=== PATIENT | male | born 1950 | race Caucasian/White ===

== ENCOUNTER 2021-10-17 07:06 | Inpatient (IN) | payer MEDICARE ==
[2021-10-17 07:42] LABS: Basophils # (A) 0.1 k/uL (0-0.2); Basophils % (A) 1 %; Eosinophils # (A) 0.3 k/uL (0-0.7); Eosinophils % (A) 5 %; HGB 15.9 gm/dL (13.0-17.5); Lymphocytes % (A) 34 %; MCHC 33.9 g/dL (31.0-37.0); MCV 94.6 fL (80.0-100.0); Mean Platelet Volume 6.9; Monocytes # (A) 0.3 k/uL (0-1.0); Monocytes % (A) 6 %; Neutrophils % (A) 52 %; Platelet Count 181 k/uL (150-450); RBC 4.97 m/uL (4.30-5.90); RDW 15.1 % (11.5-15.5); WBC 5.8 k/uL (3.8-10.6)
[2021-10-17 07:48] LABS: ALT 17 U/L (4-49); AST 26 U/L (17-59); African American GFR (CKD) >90 (>60 ml/min/1.73 sqM); Alkaline Phosphatase 104 U/L (38-126); Anion Gap 6 mmol/L; Blood Urea Nitrogen 18 mg/dL (9-20); Calcium 9.1 mg/dL (8.4-10.2); Carbon Dioxide 26 mmol/L (22-30); Chloride 108 mmol/L (98-107); Glucose 153 mg/dL (74-99); Magnesium 1.9 mg/dL (1.6-2.3); Non-African American GFR(CKD) 90 (>60 ml/min/1.73 sqM); Potassium 4.2 mmol/L (3.5-5.1); Sodium 140 mmol/L (137-145); Total Bilirubin 0.9 mg/dL (0.2-1.3); Total Protein 6.9 g/dL (6.3-8.2)
[2021-10-17 07:54] LABS: INR 0.9 (<1.2); Prothrombin Time 9.9 sec (9.0-12.0)
[2021-10-17 08:00] LABS: Partial Thromboplastin Time 20.4 sec (22.0-30.0)
--- NOTE | 2021-10-17 08:10 | XR ---
EXAMINATION TYPE: XR chest 2V DATE OF EXAM: 10/17/2021 COMPARISON: NONE HISTORY: 71 years Male. STUDY INDICATION GIVEN: Chest Pain . TECHNIQUE: Frontal and lateral chest radiographs. IMPRESSION: No focal airspace disease, pneumothorax or pleural effusion. The cardiomediastinal silhouette is normal in appearance. No acute osseous abnormalities seen. Degenerative changes are seen in the spine.
--- NOTE | 2021-10-17 08:14 | ED ---
Chest Pain HPI - General Chief Complaint: Chest Pain Stated Complaint: Chest Pain Time Seen by Provider: 10/17/21 07:08 Source: patient, EMS, RN notes reviewed Mode of arrival: EMS Limitations: no limitations - History of Present Illness Initial Comments: 71-year-old male presents emergency Department with chief complaint of chest pain. Patient states it woke him up around 5 AM he states he has a chest pain radiated to his left arm. Patient has no prior cardiac history denies any history of hypertension hyperlipidemia diabetes. Patient states she's never exhibited pain like this in the past. Does not feel short of breath. Patient states she still is dull achy pain, pressure on the left side. Patient did receive aspirin prior arrival. - Related Data Allergies Allergy/AdvReac Type Severity Reaction Status Date / Time No Known Allergies Allergy Verified 10/17/21 07:16 Review of Systems ROS Statement: Those systems with pertinent positive or pertinent negative responses have been documented in the HPI. ROS Other: All systems not noted in ROS Statement are negative. EKG Findings - EKG Comments: EKG Findings:: EKG performed at 17:14 sinus rhythm with a rate of 68 FL 204 QRS 97 QT / QTC 388/404 Past Medical History Past Medical History: No Reported History History of Any Multi-Drug Resistant Organisms: ESBL Date of last positivie culture/infection: 12/09/16 MDRO Source:: URINE E.COLI Past Surgical History: No Surgical Hx Reported Smoking Status: Current every day smoker Past Alcohol Use History: None Reported Past Drug Use History: Marijuana General Exam General appearance: alert, in no apparent distress Head exam: Present: atraumatic, normocephalic, normal inspection Eye exam: Present: normal appearance, PERRL, EOMI. Absent: scleral icterus, conjunctival injection, periorbital swelling ENT exam: Present: normal exam, mucous membranes moist Neck exam: Present: normal inspection. Absent: tenderness, meningismus, lymphadenopathy Respiratory exam: Present: normal lung sounds bilaterally. Absent: respiratory distress, wheezes, rales, rhonchi, stridor, chest wall tenderness Cardiovascular Exam: Present: regular rate, normal rhythm, normal heart sounds. Absent: systolic murmur, diastolic murmur, rubs, gallop, clicks Neurological exam: Present: alert, oriented X3, CN II-XII intact Course Vital Signs 02/19/22 07:07 Temperature 97.5 F L Pulse Rate 63 Respiratory 18 Rate Blood Pressure 130/86 O2 Sat by Pulse 97 Oximetry Chest Pain MDM - MDM 71-year-old male presented for chest pain. Patient symptoms started 2 large prior arrival. Patient has a troponin of 0.026 patient does not have any significant risk factors though patient has concerning ACS symptoms will be admitted for repeat troponin, cardiology evaluation. Patient was started on heparin. Disposition Clinical Impression: Chest pain Disposition: ADMITTED IP TO THIS HOSP Condition: Fair Referrals: Marty Pal DO [Primary Care Provider] - 1-2 days
[2021-10-17] MEDS ORDERED: NITROGLYCERIN SL TABS 0.4 MG TAB SUBLINGUAL PRN (08:21)
[2021-10-17] MEDS ORDERED: HEPARIN SODIUM 1,000 UN/ML (10ML VL) IV ONE (08:21)
[2021-10-17] MEDS: HEPARIN SOD,PORK IN 0.45% NACL 25,000 UNIT in 0.45% NACL 1 250ML.BAG IV SCH (08:36)
[2021-10-17] MEDS: NITROGLYCERIN OINT 1 INCH/GM PACKET TOPICAL SCH ×3 (12:50→23:12)
[2021-10-17] MEDS: NICOTINE 21MG/24HR PATCH TRANSDERM SCH (12:50)
--- NOTE | 2021-10-17 12:55 | P.HPIM ---
History of Present Illness This is a pleasant 71 years old male with no significant past medical history. Presents because of chest pain that started this morning and woke him up from sleep. The pain is on the left side, radiating to the left arm associated with sweating and numbness about 10/10 in severity, currently improved down to 1/10 in severity. Associated with some nausea and sweating but no dyspnea or coughing. No vomiting or diarrhea. No dysuria. No headaches, dizziness weakness or numbness He smokes about three quarters of a pack per day and he was counseled to quit and he agrees and wants nicotine patch. No alcohol or illicit drugs. hemodynamically stable Labs including CBC, BMP, liver enzymes are unremarkable. First troponin was -0.02 ,the second one increased to 1.4. Joan virus not detected EKG showing sinus rhythm at [address]-T changes and QTC 404: Chest x-ray: No acute process. In the emergency room patient was started on aspirin and heparin drip Review of Systems CONSTITUTIONAL: No fever, no malaise, no fatigue. HEENT: No recent visual problems or hearing problems. Denied any sore throat. CARDIOVASCULAR: No orthopnea, PND, no palpitations, no syncope. PULMONARY: No shortness of breath, no cough, no hemoptysis. GASTROINTESTINAL: No diarrhea, no nausea, no vomiting, no abdominal pain. Normoactive bowel sounds. NEUROLOGICAL: No headaches, no weakness, no numbness. HEMATOLOGICAL: Denies any bleeding or petechiae. GENITOURINARY: Denies any burning micturition, frequency, or urgency. MUSCULOSKELETAL/RHEUMATOLOGICAL: Denies any joint pain, swelling, or any muscle pain. ENDOCRINE: Denies any polyuria or polydipsia. Past Medical History Past Medical History: No Reported History History of Any Multi-Drug Resistant Organisms: ESBL Date of last positivie culture/infection: 12/09/16 MDRO Source:: URINE E.COLI Past Surgical History: Appendectomy Past Anesthesia/Blood Transfusion Reactions: No Reported Reaction Past Psychological History: No Psychological Hx Reported Smoking Status: Former smoker Past Alcohol Use History: None Reported Past Drug Use History: Marijuana - Past Family History Mother Family Medical History: Congestive Heart Failure (CHF), Diabetes Mellitus Medications and Allergies Home Medications Medication Instructions Recorded Confirmed Type Ibuprofen [Motrin Ib] 400 mg PO Q8H PRN 10/17/21 10/17/21 History Allergies Allergy/AdvReac Type Severity Reaction Status Date / Time No Known Allergies Allergy Verified 10/17/21 08:38 Physical Exam Vitals: Vital Signs Temp Pulse Pulse Resp BP BP Pulse Ox 10/17/21 11:00 98 10/17/21 10:06 97.8 F 63 16 101/64 95 10/17/21 08:38 62 16 100/72 95 10/17/21 07:07 97.5 F L 63 18 130/86 97 Intake and Output 10/16/21 10/17/21 10/17/21 22:59 06:59 14:59 Other: Weight 79.379 kg GENERAL: The patient is alert and oriented x3, not in any acute distress. Well developed, well nourished. HEENT: Pupils are round and equally reacting to light. EOMI. No scleral icterus. No conjunctival pallor. Normocephalic, atraumatic. No pharyngeal erythema. No thyromegaly. CARDIOVASCULAR: S1 and S2 present. No murmurs, rubs, or gallops. PULMONARY: Chest is clear to auscultation, no wheezing or crackles. ABDOMEN: Soft, nontender, nondistended, normoactive bowel sounds. No palpable organomegaly. MUSCULOSKELETAL: No joint swelling or deformity. EXTREMITIES: No cyanosis, clubbing, or pedal edema. NEUROLOGICAL: Gross neurological examination did not reveal any focal deficits. SKIN: No rashes. No petechiae Results CBC & Chem 7: 10/17/21 07:30 10/17/21 07:30 Labs: Abnormal Lab Results - Last 24 Hours (Table) 10/17/21 10/17/21 10/17/21 Range/Units 07:30 07:30 11:13 APTT 20.4 L (22.0-30.0) sec Chloride 108 H (98-107) mmol/L Glucose 153 H (74-99) mg/dL Troponin I 1.440 H* (0.000-0.034) ng/mL Thrombosis Risk Factor Assmnt - Choose All That Apply Any of the Below Risk Factors Present?: No Other Risk Factors: Yes Each Risk Factor Represents 2 Points: Age 61-74 years Thrombosis Risk Factor Assessment Total Risk Factor Score: 2 Thrombosis Risk Factor Assessment Level: Low Risk Assessment and Plan Assessment: None STEMI Nicotine dependence Plan: This is a pleasant 71 years old male who presents with non-STEMI Continue with heparin drip Continue with aspirin Check echocardiogram Nicotine patch Cardiology team are informed and aware of the patient and abnormal labs Labs and medication were reviewed.. Continue same treatment. Continue with symptomatic treatment. Resume home medication. Monitor lytes and vitals. DVT and GI prophylaxis. Further recommendations depends on the clinical course of the patient DVT prophylaxis: heparin GI Prophylaxis: Pepcid Prognosis is guarded
[2021-10-17] MEDS ORDERED: ALPRAZolam 0.25 MG TAB PO PRN (14:17)
[2021-10-17] MEDS ORDERED: ALPRAZolam 0.5 MG TAB PO PRN (14:17)
--- NOTE | 2021-10-17 15:43 | P.CRDCN ---
History of Present Illness Consult date: 10/17/21 History of present illness: This is a 71-year-old gentleman with history of heavy smoking, on no known medication, woke up this morning with complaints of severe chest discomfort with some radiation to the left arm. This lasted about an hour and then gradually eased up. Patient came to the emergency room. His EKG did not reveal any acute changes. Patient was treated sublingual nitroglycerin with improvement of symptoms. Patient has been on heparin and Nitropaste. Hasn't had any recurrence of chest pain. His troponin is elevated suggestive of unstable angina/non-STEMI. No history of previous ischemic heart disease. No hypertension or diabetes. Mother of congestive heart failure and her 70s. His brother suddenly at a 60. Patient is advised to have cardiac catheterization which is being scheduled for tomorrow morning. Further examination depend upon the findings on the cardiac catheterization Review of Systems As per the chart Past Medical History Past Medical History: No Reported History History of Any Multi-Drug Resistant Organisms: ESBL Date of last positivie culture/infection: 12/09/16 MDRO Source:: URINE E.COLI Past Surgical History: Appendectomy Past Anesthesia/Blood Transfusion Reactions: No Reported Reaction Past Psychological History: No Psychological Hx Reported Smoking Status: Former smoker Past Alcohol Use History: None Reported Past Drug Use History: Marijuana - Past Family History Mother Family Medical History: Congestive Heart Failure (CHF), Diabetes Mellitus Medications and Allergies Home Medications Medication Instructions Recorded Confirmed Type Ibuprofen [Motrin Ib] 400 mg PO Q8H PRN 10/17/21 10/17/21 History Allergies Allergy/AdvReac Type Severity Reaction Status Date / Time No Known Allergies Allergy Verified 10/17/21 08:38 Physical Exam Vitals: Vital Signs Temp Pulse Pulse Resp BP BP Pulse Ox 10/17/21 13:46 97.8 F 65 16 109/70 94 L 10/17/21 11:00 98 10/17/21 10:06 97.8 F 63 16 101/64 95 10/17/21 08:38 62 16 100/72 95 10/17/21 07:07 97.5 F L 63 18 130/86 97 Intake and Output 10/17/21 10/17/21 10/17/21 06:59 14:59 22:59 Other: # Voids 1 # Bowel Movements 0 Weight 79.379 kg GENERAL EXAM: Patient is alert and oriented and doesn't appear to be in any acute distress HEENT: Normocephalic. Normal reaction of pupils, equal size, normal range of extraocular motion. No erythema or exudates in the throat. NECK: No masses, no nuchal rigidity. CHEST: No chest wall deformity. LUNGS: Equal air entry with no crackles or wheeze. HEART: S1 and S2 normal with no audible mumurs or gallops. Regular rhythm, fe morals equal on both sides.. ABDOMEN: No hepatosplenomegaly, normal bowel sounds, no guarding or rigidity. SKIN: No rashes CENTRAL NERVOUS SYSTEM: No focal deficits. EXTREMITIES: No cyanosis, clubbing or edema. Results 10/17/21 07:30 10/17/21 07:30 Cardiac Enzymes 10/17/21 10/17/21 10/17/21 Range/Units 07:30 07:30 11:13 AST 26 (17-59) U/L Troponin I 0.026 1.440 H* (0.000-0.034) ng/mL 10/17/21 Range/Units 13:49 AST (17-59) U/L Troponin I 2.450 H* (0.000-0.034) ng/mL Coagulation 10/17/21 10/17/21 Range/Units 07:30 13:49 PT 9.9 (9.0-12.0) sec APTT 20.4 L 46.0 H (22.0-30.0) sec CBC 10/17/21 Range/Units 07:30 WBC 5.8 (3.8-10.6) k/uL RBC 4.97 (4.30-5.90) m/uL Hgb 15.9 (13.0-17.5) gm/dL Hct 47.0 (39.0-53.0) % Plt Count 181 (150-450) k/uL Comprehensive Metabolic Panel 10/17/21 Range/Units 07:30 Sodium 140 (137-145) mmol/L Potassium 4.2 (3.5-5.1) mmol/L Chloride 108 H (98-107) mmol/L Carbon Dioxide 26 (22-30) mmol/L BUN 18 (9-20) mg/dL Creatinine 0.82 (0.66-1.25) mg/dL Glucose 153 H (74-99) mg/dL Calcium 9.1 (8.4-10.2) mg/dL AST 26 (17-59) U/L ALT 17 (4-49) U/L Alkaline Phosphatase 104 (38-126) U/L Total Protein 6.9 (6.3-8.2) g/dL Albumin 4.0 (3.5-5.0) g/dL Current Medications Generic Name Dose Route Start Last Admin Trade Name Freq PRN Reason Stop Dose Admin Alprazolam 0.25 mg 10/17/21 14:17 Alprazolam 0.25 Mg Tab PO Q6HR PRN Mild Anxiety Alprazolam 0.5 mg 10/17/21 14:17 Alprazolam 0.5 Mg Tab PO Q6HR PRN Moderate Anxiety Aspirin 325 mg 10/18/21 09:00 Aspirin 325 Mg Tab PO DAILY [place] Aspirin 325 mg 10/18/21 06:00 Aspirin 325 Mg Tab PO 10/18/21 06:01 ONCE ONE Atorvastatin Calcium 80 mg 10/18/21 06:00 Atorvastatin 80 Mg Tab PO 10/18/21 06:01 ONCE ONE Famotidine 20 mg 10/17/21 21:00 Famotidine 20 Mg/2 Ml Vial IV Q12HR [place] Heparin Sodium/Sodium Chloride 250 mls @ 9.525 mls/hr 10/17/21 08:30 10/17/21 08:36 25,000 unit/ Sodium Chloride IV 12 units/kg/hr .Q24H [place] 9.525 mls/hr Administration Protocol 12 UNITS/KG/HR Heparin Sodium (Porcine) 10, 1,001 mls @ 999 mls/hr 10/18/21 07:00 000 unit/ Sodium Chloride IRRIGATION 10/18/21 23:00 ONCE PRN INTRA-OP Heparin Sodium (Porcine) 2,500 250.5 mls @ 250 mls/hr 10/18/21 07:00 unit/ Sodium Chloride IRRIGATION 10/18/21 23:00 ONCE PRN INTRA-OP Nicotine 1 patch 10/17/21 12:15 10/17/21 12:50 Nicotine 21mg/24hr Patch TRANSDERM 1 patch DAILY [place] Administration Nitroglycerin 1 inch 10/17/21 12:30 10/17/21 12:50 Nitroglycerin Oint 1 Inch/Gm Packet TOPICAL 1 inch Q6HR [place] Administration Intake and Output 02/19/22 02/19/22 02/19/22 06:59 14:59 22:59 Other: # Voids 1 # Bowel Movements 0 Weight 79.379 kg Patient Weight 10/18/21 06:59 Weight 79.379 kg 10/17/21 07:30 10/17/21 07:30 EKG Interpretations (text) Sinus rhythm Assessment and Plan (1) Non-STEMI (non-ST elevated myocardial infarction) Current Visit: Yes Status: Acute Code(s): I21.4 - NON-ST ELEVATION (NSTEMI) MYOCARDIAL INFARCTION SNOMED Code(s): 75279741 (2) Smoking Current Visit: Yes Status: Acute Code(s): F17.200 - NICOTINE DEPENDENCE, UNSPECIFIED, UNCOMPLICATED SNOMED Code(s): 17705127 (3) Family history of ischemic heart disease Current Visit: Yes Status: Acute Code(s): Z82.49 - FAMILY HX OF ISCHEM HEART DIS AND OTH DIS OF THE CIRC SYS SNOMED Code(s): 878072323 Plan: Continue with beta cuco, nitrates lipid-lowering agents and aspirin and Plavix. Cardiac cath in the morning. Echocardiogram
--- NOTE | 2021-10-17 16:40 | ECHOF ---
Referral Reason:chest pain MEASUREMENTS -------- HEIGHT: 182.9 cm WEIGHT: 79.4 kg BP: RVIDd: 3.5 cm (< 3.3) IVSd: 1.1 cm (0.6 - 1.1) LVIDd: 4.6 cm (3.9 - 5.3) LVPWd: 1.1 cm (0.6 - 1.1) IVSs: 1.3 cm LVIDs: 3.0 cm LVPWs: 1.5 cm LA Diam: 3.5 cm (2.7 - 3.8) Ao Diam: 4.0 cm (2.0 - 3.7) MV E Garrick: 0.46 m/s MV DecT: 171 ms MV A Garrick: 0.58 m/s MV E/A Ratio: 0.79 RAP: 5.00 mmHg RVSP: 11.77 mmHg FINDINGS -------- Sinus rhythm. This was a techncally difficult study with suboptimal views, , Definity utilized for enhancement of i mages. The left ventricular size is normal. There is moderate global hypokinesis of LV . Overall left ve ntricular systolic function is moderate-severely impaired with, an EF between 30 - 35 %. Mid trent septal LV wall motion is hypokinetic. Apical anterior LV wall motion is hypokinetic. Apical lat eral LV wall motion is hypokinetic. Apical inferior LV wall motion is hypokinetic. Apical septu m LV wall motion is hypokinetic. The right ventricle is normal in size. Normal LA size by volume 22+/-6 ml/m2. The right atrial size is normal. Lumason used The aortic valve was not well visualized. There is mild aortic valve sclerosis. There is no evide nce of aortic regurgitation. Mild mitral regurgitation is present. Mild tricuspid regurgitation present. Right ventricular systolic pressure is normal at < 35 mmHg. The pulmonic valve was not well visualized. Aortic Root is dilated and measures 4.0cm. Echo free space indicative of a pericardial fat pad. CONCLUSIONS -------- 1. This was a techncally difficult study with suboptimal views, , Definity utilized for enhancement o f images. 2. The left ventricular size is normal. 3. There is moderate global hypokinesis of LV . 4. Overall left ventricular systolic function is moderate-severely impaired with, an EF between 30 - 35 %. 5. Apical anterior LV wall motion is hypokinetic. 6. Apical lateral LV wall motion is hypokinetic. 7. Apical inferior LV wall motion is hypokinetic. 8. Apical septum LV wall motion is hypokinetic. 9. The right ventricle is normal in size. 10. Normal LA size by volume 22+/-6 ml/m2. 11. The right atrial size is normal. 12. Lumason used 13. The aortic valve was not well visualized. 14. There is mild aortic valve sclerosis. 15. Mild mitral regurgitation is present. 16. Mild tricuspid regurgitation present. 17. The pulmonic valve was not well visualized. 18. Echo free space indicative of a pericardial fat pad. BOX CAR LOADER: Devorah Jimenez RDCS
[2021-10-17] MEDS: CLOPIDOGREL 75 MG TAB PO SCH (17:27)
[2021-10-17] MEDS: FAMOTIDINE 20 MG/2 ML VIAL IV SCH (19:52)
[2021-10-17] MEDS: METOPROLOL TARTRATE 12.5 MG TAB PO SCH (19:52)
[2021-10-17] MEDS: ACETAMINOPHEN TAB 325 MG TAB PO PRN (19:52)
[2021-10-18 05:46] LABS: Glucose,Whole Blood 109 mg/dL (75-99)
[2021-10-18] MEDS ORDERED: ATORVASTATIN 80 MG TAB PO ONE (06:00)
[2021-10-18] MEDS ORDERED: ASPIRIN 325 MG TAB PO ONE (06:00)
[2021-10-18] MEDS: NITROGLYCERIN OINT 1 INCH/GM PACKET TOPICAL SCH ×4 (06:09→23:38)
[2021-10-18] MEDS: METOPROLOL TARTRATE 12.5 MG TAB PO SCH ×2 (06:13→21:04)
[2021-10-18] MEDS: FAMOTIDINE 20 MG/2 ML VIAL IV SCH ×2 (06:14→21:04)
[2021-10-18] MEDS: CLOPIDOGREL 75 MG TAB PO SCH (06:14)
[2021-10-18] MEDS ORDERED: HEPARIN SODIUM,PORCINE 2,500 UNIT in SODIUM CHLORIDE 0.9% 250 ML IRRIGATION PRN (07:00)
[2021-10-18] MEDS ORDERED: HEPARIN SODIUM,PORCINE 10,000 UNIT in SODIUM CHLORIDE 0.9% 1,000 ML IRRIGATION PRN (07:00)
[2021-10-18] MEDS: NICOTINE 21MG/24HR PATCH TRANSDERM SCH (08:13)
[2021-10-18] MEDS ORDERED: ASPIRIN 325 MG TAB PO SCH (09:00)
[2021-10-18 09:16] LABS: Mean Platelet Volume 6.6; Platelet Count 156 k/uL (150-450)
[2021-10-18] MEDS ORDERED: IV FLUID CONTINUATION 350 ML IV ONE (09:30)
[2021-10-18] MEDS ORDERED: fentaNYL (PF) 50 MCG/ML 2 ML AMP ONE (09:31)
[2021-10-18] MEDS ORDERED: LIDOCAINE 1% INJ 10MG/ML (20 ML MDV) ONE (09:31)
[2021-10-18] MEDS ORDERED: VERAPAMIL 2.5 MG/ML 2 ML AMP ONE (09:32)
[2021-10-18] MEDS ORDERED: fentaNYL (PF) 50 MCG/ML 2 ML AMP IVP ONE (09:44)
[2021-10-18] MEDS ORDERED: MIDAZOLAM 2 MG/2 ML VIAL IVP ONE (09:44)
[2021-10-18] MEDS ORDERED: LIDOCAINE 1% INJ 10MG/ML (20 ML MDV) SQ ONE (09:48)
[2021-10-18] MEDS ORDERED: VERAPAMIL SYRINGE (5 MG/10 ML) INTRAARTER ONE (09:50)
[2021-10-18] MEDS ORDERED: HEPARIN SODIUM 1,000 UN/ML (10ML VL) ONE (09:52)
[2021-10-18] MEDS ORDERED: HEPARIN SODIUM 1,000 UN/ML (10ML VL) IVP ONE (09:54)
[2021-10-18] MEDS ORDERED: IOPAMIDOL-370 125ML BTL INJ ONE (10:07)
[2021-10-18] MEDS ORDERED: RX INFO: IV CONTRAST WAS GIVEN 1 EACH MISC MISCELLANE PRN (10:20)
[2021-10-18 11:05] LABS: Chol/HDL Ratio 4.63 Ratio
--- NOTE | 2021-10-18 11:29 | P.PN ---
Subjective This is a pleasant 71 years old male with no significant past medical history. Presents because of chest pain that started this morning and woke him up from sleep. The pain is on the left side, radiating to the left arm associated with sweating and numbness about 10/10 in severity, currently improved down to 1/10 in severity. Associated with some nausea and sweating but no dyspnea or coughing. No vomiting or diarrhea. No dysuria. No headaches, dizziness weakness or numbness He smokes about three quarters of a pack per day and he was counseled to quit and he agrees and wants nicotine patch. No alcohol or illicit drugs. hemodynamically stable Labs including CBC, BMP, liver enzymes are unremarkable. First troponin was -0.02 ,the second one increased to 1.4. Joan virus not detected EKG showing sinus rhythm at [address]-T changes and QTC 404: Chest x-ray: No acute process. In the emergency room patient was started on aspirin and heparin drip 10/18/2021 Patient sitting in bed with no chest pain, no other complaints, family at bedside Distal on heparin drip He Is a schedule for cardiac cath today echocardiogram showing ejection fraction of 30-35% with hypokinesia Objective - Vital Signs Vital signs: Vital Signs Temp 97.9 F 10/18/21 03:00 Pulse 53 L 10/18/21 03:00 Resp 18 10/18/21 03:00 BP 108/69 10/18/21 03:00 Pulse Ox 95 10/18/21 03:00 Intake & Output 10/17/21 10/18/21 10/18/21 18:59 06:59 18:59 Intake Total 240 150 300 Balance 240 150 300 Weight 79.379 kg Intake: IV 300 Oral 240 150 0 Other: Voiding Method Toilet # Voids 1 1 0 # Bowel Movements 0 0 - Exam GENERAL: The patient is alert and oriented x3, not in any acute distress. Well developed, well nourished. HEENT: Pupils are round and equally reacting to light. EOMI. No scleral icterus. No conjunctival pallor. Normocephalic, atraumatic. No pharyngeal erythema. No thyromegaly. CARDIOVASCULAR: S1 and S2 present. No murmurs, rubs, or gallops. PULMONARY: Chest is clear to auscultation, no wheezing or crackles. ABDOMEN: Soft, nontender, nondistended, normoactive bowel sounds. No palpable organomegaly. MUSCULOSKELETAL: No joint swelling or deformity. EXTREMITIES: No cyanosis, clubbing, or pedal edema. NEUROLOGICAL: Gross neurological examination did not reveal any focal deficits. SKIN: No rashes. no petechiae. - Labs CBC & Chem 7: 10/18/21 08:34 10/17/21 07:30 Labs: Abnormal Lab Results - Last 24 Hours (Table) 10/17/21 10/17/21 10/17/21 Range/Units 11:13 13:49 13:49 APTT 46.0 H (22.0-30.0) sec POC Glucose (mg/dL) (75-99) mg/dL Troponin I 1.440 H* 2.450 H* (0.000-0.034) ng/mL HDL Cholesterol (40.00-60.00) mg/dL 10/18/21 10/18/21 10/18/21 Range/Units 05:26 08:34 08:34 APTT 37.1 H (22.0-30.0) sec POC Glucose (mg/dL) 109 H (75-99) mg/dL Troponin I (0.000-0.034) ng/mL HDL Cholesterol 37.60 L (40.00-60.00) mg/dL Assessment and Plan Assessment: None STEMI Nicotine dependence Cardiomyopathy with ejection fraction 30-35% Plan: This is a pleasant 71 years old male who presents with non-STEMI Continue with heparin drip Continue with aspirin Follow-up cardiac cath Nicotine patch Cardiology team Labs and medication were reviewed.. Continue same treatment. Continue with symptomatic treatment. Resume home medication. Monitor lytes and vitals. DVT and GI prophylaxis. Further recommendations depends on the clinical course of the patient DVT prophylaxis: heparin GI Prophylaxis: Pepcid Prognosis is guarded
--- NOTE | 2021-10-18 13:14 | US ---
EXAMINATION TYPE: US carotid duplex BILAT DATE OF EXAM: 10/18/2021 COMPARISON: NONE CLINICAL HISTORY: 71-year-old male preop cardiac surgery. TECHNIQUE: Carotid duplex ultrasound examination. Indirect Doppler criteria was utilized. FINDINGS: EXAM MEASUREMENTS: RIGHT: Peak Systolic Velocity (PSV) cm/sec ----- Right CCA: 73.1 ----- Right ICA: 72.8 ----- Right ECA: 82.6 ICA/CCA ratio: 1.0 RIGHT: End Diastole cm/sec ----- Right CCA: 22.0 ----- Right ICA: 32.9 ----- Right ECA: 20.2 LEFT: Peak Systolic Velocity (PSV) cm/sec ----- Left CCA: 80.4 ----- Left ICA: 72.8 ----- Left ECA: 65.3 ICA/CCA ratio: 0.91 LEFT: End Diastole cm/sec ----- Left CCA: 28.8 ----- Left ICA: 31.9 ----- Left ECA: 18.3 VERTEBRALS (direction of flow): Right Vertebral: Antegrade Left Vertebral: Antegrade Rhythm: Normal Pharmaceutical Sales Specialist notes: Bilateral bulb plaque No elevated velocities IMPRESSION: Mild atherosclerotic change at the bifurcations. No hemodynamically significant internal carotid susanna ry stenosis on either side. Criteria for Assigning % of Stenosis / Diameter reduction (Estimation based on the indirect measurements of the internal carotid artery velocities (ICA PSV). 1. Normal (no stenosis)=ICA PSV < 125 cm/s: ratio < 2.0: ICA EDV<40 cm/s. 2. Less than 50% stenosis=ICA PSV < 125 cm/s: ratio < 2.0: ICA EDV<40 cm/s. 3. 50 to 69% stenosis=ICA PSV of 125 to 230 cm/s: ration 2.0 ? 4.0: ICA EDV 40-100 cm/s. 4. Greater than 70% stenosis to near occlusion= ICA PSV > 230 cm/s: ratio > 4.0: ICA EDV > 100 cm/s. 5. Near occlusion= ICA PSV velocities may be low or undetectable: variable ratio and ICA EDV. 6. Total occlusion=unable to detect flow.
--- NOTE | 2021-10-18 15:45 | P.CARDCATH ---
Date of Procedure: 10/18/21 Preoperative Diagnosis: Non-STEMI Postoperative Diagnosis: Triple-vessel disease Procedure(s) Performed: Left heart catheterization without left ventriculography Description of Procedure: HISTORY: This is a 71-year-old gentleman with history of smoking who was admitted to the hospital with complaints of prolonged chest pain, abnormal troponin and EKGs suggestive of non-STEMI. Patient is advised to have cardiac catheterization for definitive diagnosis CONSENT:I have discussed the risks, benefits and alternative therapies for the above-mentioned procedure and for both sedation/analgesia as well as necessary blood product administration, if indicated, as they pertain to this patient. The patient has indicated understanding and acceptance of the risks and procedures discussed. PROCEDURE: Patient was brought to the lab in a fasting state. Patient was given some IV sedation. The right groin is infiltrated with lidocaine and right femoral artery was entered using Seldinger technique. A 6-Serbian catheter was left in place and selective coronary arteriography and left ventriculography was performed. Patient tolerated the procedure well. Femoral angiogram was performed and Angio-Seal was applied for hemostasis. No immediate complications were noted and patient was transferred to [facility] in a stable condition Conscious Sedation: Versed 1 mg Fentanyl 50 g Duration. 14minutes HEMODYNAMICS: The aortic pressure is about 110/70. Left ventricular end- diastolic pressure is about 15. No gradient across the aortic valve SELECTIVE CORONARY ARTERIOGRAPHY: LEFT MAIN: Short and free of any significant focal occlusive disease THE LEFT ANTERIOR DESCENDING CORONARY ARTERY: This is a fair caliber vessel with diffuse disease involving the ostium and proximal segment with 99% stenosis proximal to the septal branch and diagonal branch. Following the lesion. There appears to be aneurysmal dilatation. There is also a diagonal branch arising from this area which seemed to be totally occluded and filling retrograde THE LEFT CIRCUMFLEX AND IS CORONARY ARTERY:. This is a good caliber vessel giving rise good-sized OM branch. The distal circumflex has about 70% lesion. Beyond that the vessel is limited distribution with small branches THE RIGHT CORONARY ARTERY:. This is a fair caliber vessel with significant disease proximally with a healed ruptured plaque. Seemed to be totally occluded in the midportion. The distal RCA is feeling by ipsilateral and contralateral collaterals and appears to be moderate in caliber. LEFT VENTRICULOGRAPHY: Not performed FINAL IMPRESSION: Severe triple-vessel disease with subtotal 99% stenosis of the LAD in the proximal portion with disease extending to the ostium and followed by an aneurysm formation. There is total occlusion of the first diagonal. The circumflex has about 70% lesion distally. The RCA has critical lesion proximally and totally occluded in midportion. The distal RCA is filled by collateral flow PLAN:. Films are reviewed by Dr. Menendez. Given the nature of the disease, it is felt that bypass surgery is the best option. If bypass surgery is felt to be not an option by cardiac surgeons, Dr. Menendez May consider intervention PROGNOSIS: Continue maximal medical therapy. Surgical consultation
[2021-10-18] MEDS: SODIUM CHLORIDE 0.9% 1,000 ML IV SCH ×2 (18:28→23:37)
[2021-10-18] MEDS: HEPARIN SOD,PORK IN 0.45% NACL 25,000 UNIT in 0.45% NACL 1 250ML.BAG IV SCH ×2 (18:33→20:48)
[2021-10-18] MEDS: HEPARIN SODIUM 1,000 UN/ML (10ML VL) IV PRN (18:33)
[2021-10-18] MEDS: ACETAMINOPHEN TAB 325 MG TAB PO PRN (21:04)
[2021-10-18 21:11] LABS: Appearance,Urine Clear (Clear); Bilirubin,Urine Negative (Negative); Blood,Urine Negative (Negative); Color,Urine Light Yellow; Glucose,Urine (UA) 1+ (Negative); Ketones,Urine Negative (Negative); Leukocyte Esterase,Urine Negative (Negative); Nitrite,Urine Negative (Negative); Protein,Urine Negative (Negative); Specific Gravity,Urine 1.016 (1.001-1.035); Urobilinogen,Urine <2.0 mg/dL (<2.0)
[2021-10-18] MEDS: MELATONIN 3 MG TABLET PO SCH (22:00)
[2021-10-19] MEDS: HEPARIN SODIUM 1,000 UN/ML (10ML VL) IV PRN (01:28)
[2021-10-19] MEDS: NITROGLYCERIN OINT 1 INCH/GM PACKET TOPICAL SCH (06:23)
[2021-10-19 08:07] LABS: Basophils # (A) 0.1 k/uL (0-0.2); Basophils % (A) 1 %; Eosinophils # (A) 0.2 k/uL (0-0.7); Eosinophils % (A) 5 %; HCT 46.7 % (39.0-53.0); HGB 14.9 gm/dL (13.0-17.5); Lymphocytes # (A) 1.6 k/uL (1.0-4.8); Lymphocytes % (A) 35 %; MCH 30.7 pg (25.0-35.0); MCHC 31.9 g/dL (31.0-37.0); MCV 96.4 fL (80.0-100.0); Monocytes # (A) 0.2 k/uL (0-1.0); Monocytes % (A) 5 %; Neutrophils # (A) 2.4 k/uL (1.3-7.7); Neutrophils % (A) 53 %; Platelet Count 168 k/uL (150-450); RBC 4.84 m/uL (4.30-5.90); RDW 15.3 % (11.5-15.5); WBC 4.6 k/uL (3.8-10.6)
[2021-10-19 08:31] LABS: ALT 18 U/L (4-49); AST 23 U/L (17-59); African American GFR (CKD) >90 (>60 ml/min/1.73 sqM); Albumin 3.3 g/dL (3.5-5.0); Alkaline Phosphatase 101 U/L (38-126); Anion Gap 2 mmol/L; Blood Urea Nitrogen 12 mg/dL (9-20); Calcium 8.6 mg/dL (8.4-10.2); Carbon Dioxide 29 mmol/L (22-30); Chloride 109 mmol/L (98-107); Glucose 119 mg/dL (74-99); Magnesium 1.9 mg/dL (1.6-2.3); Non-African American GFR(CKD) 89 (>60 ml/min/1.73 sqM); Sodium 140 mmol/L (137-145); Total Protein 5.7 g/dL (6.3-8.2)
[2021-10-19] MEDS: NICOTINE 21MG/24HR PATCH TRANSDERM SCH (08:49)
[2021-10-19] MEDS: ASPIRIN 81 MG PO SCH (08:49)
[2021-10-19] MEDS: FAMOTIDINE 20 MG/2 ML VIAL IV SCH (08:49)
[2021-10-19] MEDS: METOPROLOL TARTRATE 12.5 MG TAB PO SCH ×2 (08:49→19:53)
[2021-10-19] MEDS: ATORVASTATIN 40 MG TAB PO SCH (08:49)
[2021-10-19] MEDS: LOSARTAN 25 MG TAB PO SCH (09:18)
--- NOTE | 2021-10-19 10:31 | P.GSCN ---
<Dorene Vogel - Last Filed: 10/19/21 10:16> History of Present Illness Consult date: 10/19/21 Reason for Consult: Coronary artery disease Requesting physician: Tracy Burkett History of present illness: This is an active 71-year-old gentleman who follows on an outpatient basis with Dr. Marty Pal for primary care. His only previous medical history is current tobacco dependence, appendectomy, daily marijuana use, and family history of heart failure and diabetes. He was on no medications at home. He presented to [facility] emergency room on 10/17/2021 with complaints of chest pain. Apparently he was woken suddenly from sleep with severe substernal left-sided chest pain with radiation to his left arm, associated with nausea and diaphoresis, denies any shortness of breath. States he had never had pain this extreme before. In hindsight the patient does admit that he had a bit of left- sided chest discomfort over the last couple of months with extreme activity such as snowshoed overlying. Chest pain subsided upon initiation of sublingual nitroglycerin. EKG in the emergency room recorded sinus rhythm. Chest x-ray demonstrated no acute process. Troponins were elevated 0.02 up to 2.45 and patient was ruled in for non-STEMI. He was admitted for evaluation and treatment with consultation placed to cardiology. Transthoracic echocardiogram was completed demonstrating impaired left ventricular systolic function with EF 30-35% and apical LV wall hypokinesis, mild mitral regurgitation, and mild tricuspid regurgitation. Heart catheterization was completed yesterday which demonstrated triple-vessel coronary artery disease. Consultation was placed to cardiothoracic surgery for surgical revascularization recommendations. Review of Systems Review of systems was completed and was negative except as noted in the HPI Past Medical History Past Medical History: No Reported History History of Any Multi-Drug Resistant Organisms: ESBL Year Discovered:: 12/09/16 MDRO Source:: URINE E.COLI Past Surgical History: Appendectomy Past Anesthesia/Blood Transfusion Reactions: No Reported Reaction Past Psychological History: No Psychological Hx Reported Smoking Status: Current every day smoker Past Alcohol Use History: None Reported Past Drug Use History: Marijuana Additional History: Admits to 1 pack per day tobacco dependence since age 15; smokes marijuana daily - Past Family History Mother Family Medical History: Congestive Heart Failure (CHF), Diabetes Mellitus Father Additional Family Medical History / Comment(s): from infection Medications and Allergies Home Medications Medication Instructions Recorded Confirmed Type Ibuprofen [Motrin Ib] 400 mg PO Q8H PRN 10/17/21 10/17/21 History Allergies Allergy/AdvReac Type Severity Reaction Status Date / Time No Known Allergies Allergy Verified 10/17/21 08:38 Surgical - Exam Vital Signs Temp Pulse Resp BP Pulse Ox 97.5 F L 63 18 130/86 97 10/17/21 07:07 10/17/21 07:07 10/17/21 07:07 10/17/21 07:07 10/17/21 07:07 CONSTITUTIONAL: Awake and alert, appears comfortable, cooperative, well- developed, well-nourished, no pain, no acute distress EYES: Pupils equal, round, reactive to light, normal ocular movement ENT: Moist mucous membranes without oral lesions present NECK: No masses, no bruits, trachea midline RESPIRATORY: Lungs sounds clear to auscultation bilaterally. Respirations even, nonlabored. Currently on room air with oxygen saturation 94%. Strong cough. No chest wall deformities. No cyanosis present CARDIOVASCULAR: S1, S2 present. Slow but regular rate and rhythm, sinus are to cardiac on telemetry. Palpable peripheral pulses bilaterally. No edema prese nt. No calf pain or tenderness noted. No significant lower extremity varicosities noted. GASTROINTESTINAL: Abdomen soft, nontender, nondistended without masses or organomegaly noted. There is no rebound or guarding present. Active bowel sounds present 4 quadrants. GENITOURINARY: Deferred INTEGUMENTARY: Skin is warm and dry with evidence of good perfusion. NEUROLOGIC: Cranial nerves II through XII intact, normal coordination, no obvious motor or sensory deficits, speech is normal MUSKULOSKELETAL: Able to move all extremities, strength equal bilaterally, normal posture PSYCHIATRIC: Alert and oriented to person place and time, appropriate affect, intact judgment and insight Results - Labs 10/19/21 07:01 10/19/21 07:01 Abnormal Lab Results - Last 24 Hours (Table) 10/18/21 10/18/21 10/19/21 Range/Units 08:34 21:03 00:14 APTT 38.6 H (22.0-30.0) sec Chloride (98-107) mmol/L Glucose (74-99) mg/dL Troponin I (0.000-0.034) ng/mL Total Protein (6.3-8.2) g/dL Albumin (3.5-5.0) g/dL HDL Cholesterol 37.60 L (40.00-60.00) mg/dL Urine Glucose (UA) 1+ H (Negative) 10/19/21 10/19/21 10/19/21 Range/Units 07:01 07:01 07:01 APTT 66.7 H (22.0-30.0) sec Chloride 109 H (98-107) mmol/L Glucose 119 H (74-99) mg/dL Troponin I 0.601 H* (0.000-0.034) ng/mL Total Protein 5.7 L (6.3-8.2) g/dL Albumin 3.3 L (3.5-5.0) g/dL HDL Cholesterol (40.00-60.00) mg/dL Urine Glucose (UA) (Negative) Diabetes panel 10/18/21 10/19/21 Range/Units 08:34 07:01 Sodium 140 (137-145) mmol/L Potassium 4.0 (3.5-5.1) mmol/L Chloride 109 H (98-107) mmol/L Carbon Dioxide 29 (22-30) mmol/L BUN 12 (9-20) mg/dL Creatinine 0.83 (0.66-1.25) mg/dL Glucose 119 H (74-99) mg/dL Calcium 8.6 (8.4-10.2) mg/dL AST 23 (17-59) U/L ALT 18 (4-49) U/L Alkaline Phosphatase 101 (38-126) U/L Total Protein 5.7 L (6.3-8.2) g/dL Albumin 3.3 L (3.5-5.0) g/dL Triglycerides 147.00 (0.00-149.00) mg/dL HDL Cholesterol 37.60 L (40.00-60.00) mg/dL Thyroid panel 10/19/21 Range/Units 07:01 TSH 1.790 (0.465-4.680) mIU/L Calcium panel 10/19/21 Range/Units 07:01 Calcium 8.6 (8.4-10.2) mg/dL Albumin 3.3 L (3.5-5.0) g/dL Pituitary panel 10/19/21 Range/Units 07:01 Sodium 140 (137-145) mmol/L Potassium 4.0 (3.5-5.1) mmol/L Chloride 109 H (98-107) mmol/L Carbon Dioxide 29 (22-30) mmol/L BUN 12 (9-20) mg/dL Creatinine 0.83 (0.66-1.25) mg/dL Glucose 119 H (74-99) mg/dL Calcium 8.6 (8.4-10.2) mg/dL TSH 1.790 (0.465-4.680) mIU/L Adrenal panel 10/19/21 Range/Units 07:01 Sodium 140 (137-145) mmol/L Potassium 4.0 (3.5-5.1) mmol/L Chloride 109 H (98-107) mmol/L Carbon Dioxide 29 (22-30) mmol/L BUN 12 (9-20) mg/dL Creatinine 0.83 (0.66-1.25) mg/dL Glucose 119 H (74-99) mg/dL Calcium 8.6 (8.4-10.2) mg/dL Total Bilirubin 1.0 (0.2-1.3) mg/dL AST 23 (17-59) U/L ALT 18 (4-49) U/L Alkaline Phosphatase 101 (38-126) U/L Total Protein 5.7 L (6.3-8.2) g/dL Albumin 3.3 L (3.5-5.0) g/dL - Imaging Chest x-ray: report reviewed, image reviewed EKG: image reviewed Additional studies: Heart catheterization films were reviewed with Dr. Rand and Dr. Breen Assessment and Plan Assessment: 1. Coronary artery disease, non-STEMI this admission 2. Current tobacco dependence 3. 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 Hyperlipidemia, untreated, cholesterol 174, LDL 107 5. Ischemic cardiomyopathy, EF 30-35% with apical LV wall hypokinesis 6. Family history of heart failure, diabetes 7. Vaccinated, not boosted against Covid Plan: The patient was seen and examined on the cardiac stepdown unit. Chart/diagnostics were reviewed with Dr. Rand and Dr. Breen. The usual perio perative course of coronary artery bypass surgery was discussed in detail with the patient, risks and benefits were reviewed, all questions were answered. Preoperative testing has been completed, STS risk score was calculated to be around 1% risk for mortality, and this was discussed with the patient. We will complete 5 m walk test. Recommend complete smoking cessation. Recommend continuing aspirin, statin, beta cuco therapy. Patient was given Plavix yesterday morning, allow for Plavix metabolism. Pulmonology was consulted for clearance. Medical management of other comorbidities per primary care service. More recommendations to follow regarding surgical revascularization. Thank you Dr. Burkett for this consult. We look forward to working with you in the care of your patient. Time with Patient: Greater than 30 <Reinaldo Breen - Last Filed: 10/19/21 14:09> Surgical - Exam Vital Signs Temp Pulse Resp BP Pulse Ox 97.5 F L 63 18 130/86 97 10/17/21 07:07 10/17/21 07:07 10/17/21 07:07 10/17/21 07:07 10/17/21 07:07 Results - Labs 10/19/21 07:01 10/19/21 07:01 Abnormal Lab Results - Last 24 Hours (Table) 10/18/21 10/19/21 10/19/21 Range/Units 21:03 00:14 07:01 APTT 38.6 H (22.0-30.0) sec Chloride 109 H (98-107) mmol/L Glucose 119 H (74-99) mg/dL Troponin I (0.000-0.034) ng/mL Total Protein 5.7 L (6.3-8.2) g/dL Albumin 3.3 L (3.5-5.0) g/dL Urine Glucose (UA) 1+ H (Negative) 10/19/21 10/19/21 Range/Units 07:01 07:01 APTT 66.7 H (22.0-30.0) sec Chloride (98-107) mmol/L Glucose (74-99) mg/dL Troponin I 0.601 H* (0.000-0.034) ng/mL Total Protein (6.3-8.2) g/dL Albumin (3.5-5.0) g/dL Urine Glucose (UA) (Negative) Diabetes panel 10/19/21 Range/Units 07:01 Sodium 140 (137-145) mmol/L Potassium 4.0 (3.5-5.1) mmol/L Chloride 109 H (98-107) mmol/L Carbon Dioxide 29 (22-30) mmol/L BUN 12 (9-20) mg/dL Creatinine 0.83 (0.66-1.25) mg/dL Glucose 119 H (74-99) mg/dL Calcium 8.6 (8.4-10.2) mg/dL AST 23 (17-59) U/L ALT 18 (4-49) U/L Alkaline Phosphatase 101 (38-126) U/L Total Protein 5.7 L (6.3-8.2) g/dL Albumin 3.3 L (3.5-5.0) g/dL Thyroid panel 10/19/21 Range/Units 07:01 TSH 1.790 (0.465-4.680) mIU/L Calcium panel 10/19/21 Range/Units 07:01 Calcium 8.6 (8.4-10.2) mg/dL Albumin 3.3 L (3.5-5.0) g/dL Pituitary panel 10/19/21 Range/Units 07:01 Sodium 140 (137-145) mmol/L Potassium 4.0 (3.5-5.1) mmol/L Chloride 109 H (98-107) mmol/L Carbon Dioxide 29 (22-30) mmol/L BUN 12 (9-20) mg/dL Creatinine 0.83 (0.66-1.25) mg/dL Glucose 119 H (74-99) mg/dL Calcium 8.6 (8.4-10.2) mg/dL TSH 1.790 (0.465-4.680) mIU/L Adrenal panel 10/19/21 Range/Units 07:01 Sodium 140 (137-145) mmol/L Potassium 4.0 (3.5-5.1) mmol/L Chloride 109 H (98-107) mmol/L Carbon Dioxide 29 (22-30) mmol/L BUN 12 (9-20) mg/dL Creatinine 0.83 (0.66-1.25) mg/dL Glucose 119 H (74-99) mg/dL Calcium 8.6 (8.4-10.2) mg/dL Total Bilirubin 1.0 (0.2-1.3) mg/dL AST 23 (17-59) U/L ALT 18 (4-49) U/L Alkaline Phosphatase 101 (38-126) U/L Total Protein 5.7 L (6.3-8.2) g/dL Albumin 3.3 L (3.5-5.0) g/dL Assessment and Plan Plan: I have personally seen and examine the patient, performed the documentation and assessment and plan as written. Number of minutes spent on this consult: 30
--- NOTE | 2021-10-19 11:04 | P.PN ---
Subjective This is a pleasant 71 years old male with no significant past medical history. Presents because of chest pain that started this morning and woke him up from sleep. The pain is on the left side, radiating to the left arm associated with sweating and numbness about 10/10 in severity, currently improved down to 1/10 in severity. Associated with some nausea and sweating but no dyspnea or coughing. No vomiting or diarrhea. No dysuria. No headaches, dizziness weakness or numbness He smokes about three quarters of a pack per day and he was counseled to quit and he agrees and wants nicotine patch. No alcohol or illicit drugs. hemodynamically stable Labs including CBC, BMP, liver enzymes are unremarkable. First troponin was -0.02 ,the second one increased to 1.4. Joan virus not detected EKG showing sinus rhythm at [address]-T changes and QTC 404: Chest x-ray: No acute process. In the emergency room patient was started on aspirin and heparin drip 10/18/2021 Patient sitting in bed with no chest pain, no other complaints, family at bedside Distal on heparin drip He Is a schedule for cardiac cath today echocardiogram showing ejection fraction of 30-35% with hypokinesia 10/19/2021 cardiac cath yesterday showed severe triple-vessel coronary artery disease. Plan for bypass surgery, surgery team consulted, pulmonary team consulted as well for clearance Other than that patient denies chest pain today. Troponin 0.6, TSH normal 1.7, urine analysis is negative. He is on heparin drip Objective - Vital Signs Vital signs: Vital Signs Temp 97.6 F 10/19/21 04:15 Pulse 60 10/19/21 04:15 Resp 18 10/19/21 04:15 BP 98/60 10/19/21 04:15 Pulse Ox 94 L 10/19/21 04:15 Intake & Output 10/18/21 10/19/21 10/19/21 18:59 06:59 18:59 Intake Total 420 65.087 Balance 420 65.087 Intake: IV 300 Intake, IV Titration 65.087 Amount Heparin Sod,Pork in 0.45% 65.087 NaCl 25,000 unit In 0.45 % NaCl 1 250ml.bag @ 12 UNITS/KG/HR 9.525 mls/hr IV .Q24H [facility] Rx#: [id number] Oral 120 Other: Voiding Method Toilet # Voids 1 1 # Bowel Movements 0 - Exam GENERAL: The patient is alert and oriented x3, not in any acute distress. Well developed, well nourished. HEENT: Pupils are round and equally reacting to light. EOMI. No scleral icterus. No conjunctival pallor. Normocephalic, atraumatic. No pharyngeal erythema. No thyromegaly. CARDIOVASCULAR: S1 and S2 present. No murmurs, rubs, or gallops. PULMONARY: Chest is clear to auscultation, no wheezing or crackles. ABDOMEN: Soft, nontender, nondistended, normoactive bowel sounds. No palpable organomegaly. MUSCULOSKELETAL: No joint swelling or deformity. EXTREMITIES: No cyanosis, clubbing, or pedal edema. NEUROLOGICAL: Gross neurological examination did not reveal any focal deficits. SKIN: No rashes. no petechiae. - Labs CBC & Chem 7: 10/19/21 07:01 10/19/21 07:01 Labs: Abnormal Lab Results - Last 24 Hours (Table) 10/18/21 10/18/21 10/19/21 Range/Units 08:34 21:03 00:14 APTT 38.6 H (22.0-30.0) sec Chloride (98-107) mmol/L Glucose (74-99) mg/dL Troponin I (0.000-0.034) ng/mL Total Protein (6.3-8.2) g/dL Albumin (3.5-5.0) g/dL HDL Cholesterol 37.60 L (40.00-60.00) mg/dL Urine Glucose (UA) 1+ H (Negative) 10/19/21 10/19/21 10/19/21 Range/Units 07:01 07:01 07:01 APTT 66.7 H (22.0-30.0) sec Chloride 109 H (98-107) mmol/L Glucose 119 H (74-99) mg/dL Troponin I 0.601 H* (0.000-0.034) ng/mL Total Protein 5.7 L (6.3-8.2) g/dL Albumin 3.3 L (3.5-5.0) g/dL HDL Cholesterol (40.00-60.00) mg/dL Urine Glucose (UA) (Negative) Assessment and Plan Assessment: None STEMI, secondary to severe triple vessel coronary artery disease, plan for bypass surgery Nicotine dependence Cardiomyopathy with ejection fraction 30-35% Plan: This is a pleasant 71 years old male who presents with non-STEMI Continue with heparin drip Continue with aspirin Consult cardiothoracic surgery Cardiology and pulmonary team of the case Nicotine patch Labs and medication were reviewed.. Continue same treatment. Continue with symptomatic treatment. Resume home medication. Monitor lytes and vitals. DVT and GI prophylaxis. Further recommendations depends on the clinical course of the patient DVT prophylaxis: heparin GI Prophylaxis: Pepcid Prognosis is guarded
--- NOTE | 2021-10-19 13:24 | P.CNPUL ---
History of Present Illness Consult date: 10/19/21 Requesting physician: Dorene Vogel Reason for consult: chest pain Chief complaint: Chest pain History of present illness: This is a 71-year-old white male patient of Dr. Marty Pal with past history of chronic and ongoing tobacco dependence, patient carries over [id number] smoking history, daily marijuana use, family history of heart failure, and diabetes mellitus. Patient is not on any home medications. He presented to the emergency department on 10/17/2021 when he was awoken out of his sleep at 4:00 in the morning with chest pain radiating to his left arm. Patient was not complaining of any shortness of breath, his chest pain she described as dull and achy with pressure on the left side. There was associated with some nausea and sweating. His EKG shows sinus rhythm with a rate of [address]PM with no significant ST or T-wave changes. His chest x-ray was negative for any acute process. His troponins were 0.026, 1.440, 2.450, 0.601. The rest of his blood work has been reviewed showing CBC within normal limits, electrolytes and renal profile were unremarkable, LFTs were unremarkable, his lipid profile was unremarkable with the exception of HDL which was 37.6. Urinalysis showed 1+ glucose, and the rest was within normal limits, COVID-19 PCR was negative. Patient had a cardiac catheterization and was found to have severe triple-vessel disease with subtotal 99% LAD stenosis extending to the ostium and followed by an aneurysm formation, total occlusion of the first diagonal, 70% stenosis of the circumflex, critical lesion proximally in the RCA and total occlusion in the midportion with collateral flow. Patient was referred to CT surgery for evaluation for possibility of coronary artery bypass grafting surgery. Review of Systems All systems: negative Constitutional: Denies chills, Denies fever Eyes: denies blurred vision, denies pain Ears, nose, mouth and throat: Denies headache, Denies sore throat Cardiovascular: Reports chest pain, Denies shortness of breath Respiratory: Denies cough Gastrointestinal: Denies abdominal pain, Denies diarrhea, Denies nausea, Denies vomiting Musculoskeletal: Denies myalgias Integumentary: Denies pruritus, Denies rash Neurological: Denies numbness, Denies weakness Psychiatric: Denies anxiety, Denies depression Endocrine: Denies fatigue, Denies weight change Past Medical History Past Medical History: No Reported History History of Any Multi-Drug Resistant Organisms: ESBL Date of last positivie culture/infection: 12/09/16 MDRO Source:: URINE E.COLI Past Surgical History: Appendectomy Past Anesthesia/Blood Transfusion Reactions: No Reported Reaction Past Psychological History: No Psychological Hx Reported Smoking Status: Current every day smoker Past Alcohol Use History: None Reported Past Drug Use History: Marijuana - Past Family History Mother Family Medical History: Congestive Heart Failure (CHF), Diabetes Mellitus Father Additional Family Medical History / Comment(s): from infection Medications and Allergies Home Medications Medication Instructions Recorded Confirmed Type Ibuprofen [Motrin Ib] 400 mg PO Q8H PRN 10/17/21 10/17/21 History Allergies Allergy/AdvReac Type Severity Reaction Status Date / Time No Known Allergies Allergy Verified 10/17/21 08:38 Physical Exam Vitals: Vital Signs Temp Pulse Resp BP Pulse Ox 10/19/21 08:14 98.0 F 74 18 124/79 97 10/19/21 08:00 18 10/19/21 04:15 97.6 F 60 18 98/60 94 L 10/18/21 23:05 61 18 101/64 96 10/18/21 20:45 97.5 F L 66 18 128/73 95 10/18/21 15:00 97.9 F 56 L 18 128/80 97 10/18/21 14:00 56 L Intake and Output 10/18/21 10/19/21 10/19/21 22:59 06:59 14:59 Intake Total 120 65.087 240 Balance 120 65.087 240 Intake: Intake, IV Titration 65.087 Amount Heparin Sod,Pork in 0.45% 65.087 NaCl 25,000 unit In 0.45 % NaCl 1 250ml.bag @ 12 UNITS/KG/HR 9.525 mls/hr IV .Q24H [facility] Rx#: [id number] Oral 120 240 Other: Voiding Method Toilet Toilet Toilet # Voids 1 1 GENERAL EXAM: Alert, pleasant, 71-year-old white male on room air with a pulse ox of 97% comfortable in no apparent distress. HEAD: Normocephalic/atraumatic. EYES: Normal reaction of pupils, equal size. Conjunctiva pink, sclera white. NOSE: Clear with pink turbinates. THROAT: No erythema or exudates. NECK: No masses, no JVD, no thyroid enlargement, no adenopathy. CHEST: No chest wall deformity. Symmetrical expansion. LUNGS: Equal air entry with no crackles, wheeze, rhonchi or dullness. CVS: Regular rate and rhythm, normal S1 and S2, no gallops, no murmurs, no rubs ABDOMEN: Soft, nontender. No hepatosplenomegaly, normal bowel sounds, no guarding or rigidity. EXTREMITIES: No clubbing, no edema, no cyanosis, 2+ pulses and upper and lower extremities. MUSCULOSKELETAL: Muscle strength and tone normal. SPINE: No scoliosis or deformity SKIN: No rashes CENTRAL NERVOUS SYSTEM: Alert and oriented -3. No focal deficits, tone is normal in all 4 extremities. PSYCHIATRIC: Alert and oriented -3. Appropriate affect. Intact judgment and insight. Results - Laboratory Findings CBC and BMP: 10/19/21 07:01 10/19/21 07:01 PT/INR, D-dimer PT 9.9 sec (9.0-12.0) 10/17/21 07:30 INR 0.9 (<1.2) 10/17/21 07:30 Abnormal lab findings: Abnormal Labs 10/17/21 10/17/21 10/17/21 07:30 07:30 11:13 APTT 20.4 L Chloride 108 H Glucose 153 H POC Glucose (mg/dL) Troponin I 1.440 H* Total Protein Albumin HDL Cholesterol Urine Glucose (UA) 10/17/21 10/17/21 10/18/21 13:49 13:49 05:26 APTT 46.0 H Chloride Glucose POC Glucose (mg/dL) 109 H Troponin I 2.450 H* Total Protein Albumin HDL Cholesterol Urine Glucose (UA) 10/18/21 10/18/21 10/18/21 08:34 08:34 21:03 APTT 37.1 H Chloride Glucose POC Glucose (mg/dL) Troponin I Total Protein Albumin HDL Cholesterol 37.60 L Urine Glucose (UA) 1+ H 10/19/21 10/19/21 10/19/21 00:14 07:01 07:01 APTT 38.6 H Chloride 109 H Glucose 119 H POC Glucose (mg/dL) Troponin I 0.601 H* Total Protein 5.7 L Albumin 3.3 L HDL Cholesterol Urine Glucose (UA) 10/19/21 07:01 APTT 66.7 H Chloride Glucose POC Glucose (mg/dL) Troponin I Total Protein Albumin HDL Cholesterol Urine Glucose (UA) - Diagnostic Findings Chest x-ray: report reviewed, image reviewed Additional studies: EKG, chest x-ray, echocardiogram, carotid Doppler reviewed Assessment and Plan Plan: Assessment: #1. Acute non-ST elevated myocardial infarction #2. Multivessel coronary artery disease, with severe triple-vessel disease with subtotal 99% LAD stenosis, 100% occlusion of the first diagonal, 70% occlusion of the circumflex, critical stenosis of the RCA proximally and total occlusion in the midportion, with collateral flow. Awaiting evaluation for possibility of coronary artery bypass grafting #3. Chronic and ongoing history of smoking, carries [id number] smoking history #4. Daily marijuana smoker #5. Ischemic cardiomyopathy with EF of 30-35% Plan: We'll obtain preop FEV1 No complaints of shortness of breath Currently undergoing evaluation for possibility of coronary artery bypass grafting No pulmonary complaints, breathing fairly comfortably, patient is on room air We'll make further evaluation and recommendation based on his preop FEV1 I performed a history & physical examination of the patient and discussed their management with my nurse practitioner, Pattie Mitchell. I reviewed the nurse practitioner's note and agree with the documented findings and plan of care. Lung sounds are positive for clear breath sounds throughout the lung hyatt. The findings and the impression was discussed with the patient. I attest to the documentation by the nurse practitioner. Time with Patient: Greater than 30
[2021-10-19] MEDS: SODIUM CHLORIDE 0.9% 1,000 ML IV SCH ×2 (14:17→22:52)
--- NOTE | 2021-10-19 14:49 | PN ---
PROGRESS NOTE This is a 71-year-old gentleman who was seen and evaluated by Dr. Burkett yesterday. He underwent a cardiac catheterization and was found to have significant triple-vessel disease. His films were also reviewed by Dr. Menendez, who felt that surgery is a better approach. The patient has significant triple-vessel disease with subtotal 99% stenosis of LAD in the proximal portion. Disease extends to the ostium as well. He has a right-dominant or a codominant system with total occlusion. Distal RCA is filled by collaterals, both ipsilateral and contralateral. Circumflex has about a 70% distal lesion as well. Patient is advised aortocoronary bypass surgery. He is awaiting further evaluation by Cardiac Surgery today. We will continue same medications and see how he does. He has no symptoms of chest pain. He is resting comfortably. He is on beta blockers and also atorvastatin and aspirin. Physical examination revealed blood pressure of 120/70, pulse rate 68 per minute. No JVD or carotid bruit. S1-S2 heard normally. Short systolic murmur noted. Lungs are clear. Abdomen is soft, non-tender. Lower extremities reveal normal pulses. No edema. Central system is normal. Right radial cath site is clean and dry with a good pulse. MMODL / IJN: [id number] /
[2021-10-19] MEDS: HEPARIN SOD,PORK IN 0.45% NACL 25,000 UNIT in 0.45% NACL 1 250ML.BAG IV SCH (16:16)
[2021-10-19] MEDS: ACETAMINOPHEN TAB 325 MG TAB PO PRN (16:16)
[2021-10-19] MEDS: FAMOTIDINE 20 MG TAB PO SCH (19:53)
[2021-10-19] MEDS: MELATONIN 3 MG TABLET PO SCH (19:53)
[2021-10-19] MEDS: MUPIROCIN 2% OINT 22 GM TUBE NASAL SCH (19:54)
[2021-10-20 08:08] LABS: Mean Platelet Volume 6.9; Platelet Count 147 k/uL (150-450)
[2021-10-20] MEDS: ASPIRIN 81 MG PO SCH (08:53)
[2021-10-20] MEDS: MUPIROCIN 2% OINT 22 GM TUBE NASAL SCH ×2 (08:53→19:31)
[2021-10-20] MEDS: LOSARTAN 25 MG TAB PO SCH (08:53)
[2021-10-20] MEDS: METOPROLOL TARTRATE 12.5 MG TAB PO SCH ×2 (08:53→19:29)
[2021-10-20] MEDS: NICOTINE 21MG/24HR PATCH TRANSDERM SCH (08:53)
[2021-10-20] MEDS: FAMOTIDINE 20 MG TAB PO SCH ×2 (08:53→19:29)
[2021-10-20] MEDS: ATORVASTATIN 40 MG TAB PO SCH (08:53)
--- NOTE | 2021-10-20 09:14 | P.PN ---
Subjective Progress Note Date: 10/20/21 Principal diagnosis: Coronary artery disease, non-STEMI this admission. Previous medical history of current tobacco dependence, mild COPD, hyperlipidemia, ischemic cardiomyopathy, family history of heart failure, diabetes. Vaccinated, not boosted against Covid The patient was seen and examined this morning sitting up in bed eating breakfast on the cardiac stepdown unit in no acute distress. He denies any chest pain, shortness of breath, or any other symptomatology other than just being bored. The patient and his were seen yesterday by Dr. Breen to discuss open heart surgery, our plan is for to allow for Plavix metabolism, recovery from recent MD, time to allow for maximizing medical therapy, and this was agreeable to the patient and his . All of their questions were answered. Will meet with daughters this afternoon to answer any further questions as they were not present yesterday. No other new concerns at this time. Objective - Vital Signs Vital signs: Vital Signs Temp 98.4 F 10/20/21 03:05 Pulse 65 10/20/21 03:05 Resp 16 10/20/21 03:05 BP 92/56 10/20/21 03:05 Pulse Ox 93 L 10/20/21 03:05 Intake & Output 10/19/21 10/20/21 10/20/21 18:59 06:59 18:59 Intake Total 1555.398 480 Balance 1555.398 480 Intake: Intake, IV Titration 165.398 Amount Heparin Sod,Pork in 0.45% 165.398 NaCl 25,000 unit In 0.45 % NaCl 1 250ml.bag @ 12 UNITS/KG/HR 9.525 mls/hr IV .Q24H [facility] Rx#: [id number] Oral 1390 480 Other: Voiding Method Toilet Toilet # Voids 2 1 - Exam CONSTITUTIONAL: Appears comfortable, cooperative, no acute distress RESPIRATORY: Lungs sounds diminished bilaterally. Respirations even, nonlabored. Currently on room air with oxygen saturation 93%. Able to achieve 2500 mL on incentive spirometry. Strong cough. CARDIOVASCULAR: S1, S2 present. Regular rate and rhythm, sinus rhythm on telemetry. Sternum stable. Palpable peripheral pulses bilaterally. No edema present. No calf pain or tenderness noted. GASTROINTESTINAL: Abdomen soft, nontender, nondistended. Active bowel sounds present 4 quadrants. Tolerating diet. GENITOURINARY: Continues to void INTEGUMENTARY: Skin is warm and dry with evidence of good perfusion. NEUROLOGIC: Cranial nerves II through XII intact MUSKULOSKELETAL: Able to move all extremities, strength equal bilaterally, gait normal PSYCHIATRIC: Alert and oriented to person place and time, appropriate affect, intact judgment and insight - Labs CBC & Chem 7: 10/20/21 06:59 10/19/21 07:01 Labs: Abnormal Lab Results - Last 24 Hours (Table) 10/20/21 10/20/21 Range/Units 06:59 06:59 Plt Count 147 L (150-450) k/uL APTT 60.7 H (22.0-30.0) sec Assessment and Plan Assessment: 1. Coronary artery disease, non-STEMI this admission 2. Current tobacco dependence 3. 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 Hyperlipidemia, untreated, cholesterol 174, LDL 107 5. Ischemic cardiomyopathy, EF 30-35% with apical LV wall hypokinesis 6. Family history of heart failure, diabetes 7. Vaccinated, not boosted against Covid Plan: 1. Continue to maximize medical therapy with aspirin, statin, beta cuco. Continue to hold Plavix 2. Encourage incentive spirometry use 3. Increase activity, ambulate as tolerated 4. Our plan is for off-pump myocardial revascularization with left internal mammary artery and endovascular vein harvest, ligation of the left atrial appendage on 10/22/[address] Breen 5. 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 Continue to encourage smoking cessation 7. Medical management of other comorbidities per primary care service 8. More recommendations to follow Time with Patient: Greater than 30
--- NOTE | 2021-10-20 10:32 | P.PN ---
Subjective Progress Note Date: 10/20/21 This is a 71-year-old white male patient of Dr. Marty Pal with past history of chronic and ongoing tobacco dependence, patient carries over [id number] smoking history, daily marijuana use, family history of heart failure, and diabetes mellitus. Patient is not on any home medications. He presented to the emergency department on 10/17/2021 when he was awoken out of his sleep at 4:00 in the morning with chest pain radiating to his left arm. Patient was not complaining of any shortness of breath, his chest pain she described as dull and achy with pressure on the left side. There was associated with some nausea and sweating. His EKG shows sinus rhythm with a rate of 68 BPM with no significant ST or T-wave changes. His chest x-ray was negative for any acute process. His troponins were 0.026, 1.440, 2.450, 0.601. The rest of his blood work has been reviewed showing CBC within normal limits, electrolytes and renal profile were unremarkable, LFTs were unremarkable, his lipid profile was unremarkable with the exception of HDL which was 37.6. Urinalysis showed 1+ glucose, and the rest was within normal limits, COVID-19 PCR was negative. Patient had a cardiac catheterization and was found to have severe triple-vessel disease with subtotal 99% LAD stenosis extending to the ostium and followed by an aneurysm formation, total occlusion of the first diagonal, 70% stenosis of the circumflex, critical lesion proximally in the RCA and total occlusion in the midportion with collateral flow. Patient was referred to CT surgery for evaluation for possibility of coronary artery bypass grafting surgery. On 10/20/2021 patient seen in follow-up on selective care unit, she is resting comfortably in bed, has had no episodes of chest pain overnight, he remains on heparin infusion. Lung sounds are clear to auscultation, no dyspnea, no cough, no fever or chills, no complaints of chest discomfort. Preop FEV1 was 65% of predicted. Patient was evaluated by CT surgery, and the plan is to proceed with off-pump myocardial revascularization ANGELES, endovascular vein harvest, and left atrial appendage ligation on on 2021. Objective - Vital Signs Vital signs: Vital Signs Temp 98.4 F 10/20/21 03:05 Pulse 65 10/20/21 03:05 Resp 16 10/20/21 03:05 BP 92/56 10/20/21 03:05 Pulse Ox 93 L 10/20/21 03:05 Intake & Output 10/19/21 10/20/21 10/20/21 18:59 06:59 18:59 Intake Total 1555.398 480 Balance 1555.398 480 Intake: Intake, IV Titration 165.398 Amount Heparin Sod,Pork in 0.45% 165.398 NaCl 25,000 unit In 0.45 % NaCl 1 250ml.bag @ 12 UNITS/KG/HR 9.525 mls/hr IV .Q24H [facility] Rx#: [id number] Oral 1390 480 Other: Voiding Method Toilet Toilet # Voids 2 1 - Exam GENERAL EXAM: Alert, pleasant, 71-year-old white male on room air with a pulse ox of 97% comfortable in no apparent distress. HEAD: Normocephalic/atraumatic. EYES: Normal reaction of pupils, equal size. Conjunctiva pink, sclera white. NOSE: Clear with pink turbinates. THROAT: No erythema or exudates. NECK: No masses, no JVD, no thyroid enlargement, no adenopathy. CHEST: No chest wall deformity. Symmetrical expansion. LUNGS: Equal air entry with no crackles, wheeze, rhonchi or dullness. CVS: Regular rate and rhythm, normal S1 and S2, no gallops, no murmurs, no rubs ABDOMEN: Soft, nontender. No hepatosplenomegaly, normal bowel sounds, no guarding or rigidity. EXTREMITIES: No clubbing, no edema, no cyanosis, 2+ pulses and upper and lower extremities. MUSCULOSKELETAL: Muscle strength and tone normal. SPINE: No scoliosis or deformity SKIN: No rashes CENTRAL NERVOUS SYSTEM: Alert and oriented -3. No focal deficits, tone is normal in all 4 extremities. PSYCHIATRIC: Alert and oriented -3. Appropriate affect. Intact judgment and insight. - Labs CBC & Chem 7: 10/20/21 06:59 10/19/21 07:01 Labs: Abnormal Lab Results - Last 24 Hours (Table) 10/20/21 10/20/21 Range/Units 06:59 06:59 Plt Count 147 L (150-450) k/uL APTT 60.7 H (22.0-30.0) sec Assessment and Plan Plan: Assessment: #1. Acute non-ST elevated myocardial infarction #2. Multivessel coronary artery disease, with severe triple-vessel disease with subtotal 99% LAD stenosis, 100% occlusion of the first diagonal, 70% occlusion of the circumflex, critical stenosis of the RCA proximally and total occlusion in the midportion, with collateral flow. patient is scheduled for off-pump bypass surgery with ANGELES, endovascular vein harvest and left atrial appendage exclusion on 10/22/2021 #3. Chronic and ongoing history of smoking, carries [id number] smoking history, preop FEV1 was 65% of predicted #4. Daily marijuana smoker #5. Ischemic cardiomyopathy with EF of 30-35% Plan: Preop PFT has been reviewed, consistent with moderate obstruction No complaints of shortness of breath No acute events overnight No pulmonary complaints, breathing fairly comfortably, patient is on room air Patient is scheduled for off-pump CABG on 10/22/2021 I performed a history & physical examination of the patient and discussed their management with my nurse practitioner, Pattie Mitchell. I reviewed the nurse practitioner's note and agree with the documented findings and plan of care. Ruht ng sounds are positive for clear breath sounds throughout the lung hyatt. The findings and the impression was discussed with the patient. I attest to the documentation by the nurse practitioner. Time with Patient: Less than 30
--- NOTE | 2021-10-20 11:00 | PN ---
PROGRESS NOTE Mr. Murphy was seen by Cardiac Surgery yesterday. He is going for surgery on 10/22. He will have triple-vessel off-pump bypass. Vitals are stable. No JVD. S1-S2 heard normally. Lungs are clear. Abdomen and lower extremity exam unchanged. Patient is going for surgery on 10/22. Will continue IV heparin for now. Will continue all his other medications. Surgery will be performed on 10/22. MMODL / IJN: [id number] /
[2021-10-20] MEDS ORDERED: PANTOPRAZOLE 40 MG TABLET PO STA (16:30)
[2021-10-20] MEDS: HEPARIN SOD,PORK IN 0.45% NACL 25,000 UNIT in 0.45% NACL 1 250ML.BAG IV SCH (16:55)
[2021-10-20] MEDS: SODIUM CHLORIDE 0.9% 1,000 ML IV SCH ×2 (17:10→19:38)
[2021-10-20] MEDS: ACETAMINOPHEN TAB 325 MG TAB PO PRN (19:30)
[2021-10-20] MEDS: MELATONIN 3 MG TABLET PO SCH (19:37)
[2021-10-21] MEDS ORDERED: PANTOPRAZOLE 40 MG TABLET PO SCH (07:30)
--- NOTE | 2021-10-21 08:30 | XR ---
EXAMINATION TYPE: XR chest 2V DATE OF EXAM: 10/21/2021 COMPARISON: X-ray dated 10/17/2021 HISTORY: Preoperative cardiac surgery TECHNIQUE: Frontal and lateral views of the chest are obtained. FINDINGS: Hyper translucent hyperinflated lungs suggestive of COPD. Millimetric pulmonary nodules are seen in t he left midlung zone, measuring up to 5 mm, stable compared to the previous recent x-ray and could re present tiny calcified granulomas. Recommend follow-up x-ray in 2-3 months for reassessment. Alternat ively, further CT scan assessment can be considered. Grossly unremarkable remainder of the lungs. No sizable pleural effusion or definite pneumothorax. No cardiomegaly. Aortic atherosclerotic calcifications. Degenerative changes of the thoracic spine. IMPRESSION: 1. Suspected COPD, please correlate clinically. 2. Left mid lung zone millimetric nodules as described above, incompletely characterized by this x-ra y. A follow-up x-ray in 2-[address] assessment can be considered.
[2021-10-21] MEDS: NICOTINE 21MG/24HR PATCH TRANSDERM SCH (08:31)
[2021-10-21] MEDS: ASPIRIN 81 MG PO SCH (08:31)
[2021-10-21] MEDS: METOPROLOL TARTRATE 12.5 MG TAB PO SCH ×2 (08:31→19:40)
[2021-10-21] MEDS: ATORVASTATIN 40 MG TAB PO SCH (08:31)
[2021-10-21] MEDS: FAMOTIDINE 20 MG TAB PO SCH ×2 (08:31→19:40)
[2021-10-21] MEDS: MUPIROCIN 2% OINT 22 GM TUBE NASAL SCH ×2 (08:32→19:42)
[2021-10-21 09:09] LABS: Basophils # (A) 0.1 k/uL (0-0.2); Basophils % (A) 1 %; Eosinophils # (A) 0.2 k/uL (0-0.7); Eosinophils % (A) 4 %; HCT 45.4 % (39.0-53.0); Lymphocytes # (A) 1.5 k/uL (1.0-4.8); Lymphocytes % (A) 36 %; MCH 31.5 pg (25.0-35.0); MCV 95.3 fL (80.0-100.0); Mean Platelet Volume 6.8; Monocytes # (A) 0.2 k/uL (0-1.0); Monocytes % (A) 5 %; Neutrophils # (A) 2.2 k/uL (1.3-7.7); Neutrophils % (A) 51 %; Platelet Count 159 k/uL (150-450); RBC 4.76 m/uL (4.30-5.90); RDW 15.2 % (11.5-15.5); WBC 4.3 k/uL (3.8-10.6)
--- NOTE | 2021-10-21 09:14 | P.PN ---
Subjective Progress Note Date: 10/21/21 Principal diagnosis: Coronary artery disease, non-STEMI this admission. Previous medical history of current tobacco dependence, mild COPD, hyperlipidemia, ischemic cardiomyopathy, family history of heart failure, diabetes. Vaccinated, not boosted against Covid The patient was seen and examined this morning sitting up in bed on the cardiac stepdown unit in no acute distress. He denies any chest pain, shortness of breath, or any other symptomatology. Met with patient's , daughters, and grandchildren yesterday to discuss surgery, all questions answered. Patient/family feel ready for surgery which is planned for tomorrow. No other new concerns. Objective - Vital Signs Vital signs: Vital Signs Temp 97.8 F 10/21/21 03:25 Pulse 62 10/21/21 03:25 Resp 16 10/21/21 03:25 BP 98/61 10/21/21 03:25 Pulse Ox 95 10/21/21 03:25 Intake & Output 10/20/21 10/21/21 10/21/21 18:59 06:59 18:59 Intake Total 1450 Balance 1450 Intake: Intake, IV Titration 250 Amount Heparin Sod,Pork in 0.45% 250 NaCl 25,000 unit In 0.45 % NaCl 1 250ml.bag @ 12 UNITS/KG/HR 9.525 mls/hr IV .Q24H [facility] Rx#: [id number] Oral 1200 Other: Voiding Method Toilet Toilet # Voids 2 1 - Exam CONSTITUTIONAL: Appears comfortable, cooperative, no acute distress RESPIRATORY: Lungs sounds diminished bilaterally. Respirations even, nonlabored. Currently on room air with oxygen saturation 95%. Able to achieve 2500 mL on incentive spirometry. Strong cough. CARDIOVASCULAR: S1, S2 present. Regular rate and rhythm, sinus rhythm to sinus mahamed on telemetry. Palpable peripheral pulses bilaterally. No edema present. No calf pain or tenderness noted. GASTROINTESTINAL: Abdomen soft, nontender, nondistended. Active bowel sounds present 4 quadrants. Tolerating diet. GENITOURINARY: Continues to void INTEGUMENTARY: Skin is warm and dry with evidence of good perfusion. NEUROLOGIC: Cranial nerves II through XII intact MUSKULOSKELETAL: Able to move all extremities, strength equal bilaterally, gait normal PSYCHIATRIC: Alert and oriented to person place and time, appropriate affect, intact judgment and insight - Allied health notes Allied health notes reviewed: nursing - Labs CBC & Chem 7: 10/21/21 08:22 10/19/21 07:01 Labs: Abnormal Lab Results - Last 24 Hours (Table) 10/20/21 Range/Units 06:59 APTT 60.7 H (22.0-30.0) sec - Imaging and Cardiology Chest x-ray: image reviewed Assessment and Plan Assessment: 1. Coronary artery disease, non-STEMI this admission 2. Current tobacco dependence 3. 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 Hyperlipidemia, untreated, cholesterol 174, LDL 107 5. Ischemic cardiomyopathy, EF 30-35% with apical LV wall hypokinesis 6. Family history of heart failure, diabetes 7. Vaccinated, not boosted against Covid Plan: 1. Continue to maximize medical therapy with aspirin, statin, beta cuco. Continue to hold Plavix. Will discontinue ARB to prevent intra/postoperative hypotension 2. Encourage incentive spirometry use 3. Increase activity, ambulate as tolerated 4. Our plan is for off-pump myocardial revascularization with left internal mammary artery and endovascular vein harvest, ligation of the left atrial appendage tomorrow 10/22/[address] Breen 5. 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 Continue to encourage smoking cessation 7. Medical management of other comorbidities per primary care service 8. More recommendations to follow Time with Patient: Greater than 30
[2021-10-21 09:26] LABS: Partial Thromboplastin Time 56.5 sec (22.0-30.0); Prothrombin Time 10.8 sec (9.0-12.0)
--- NOTE | 2021-10-21 09:27 | P.VSCSTY ---
Greater Saphenous Vein Mapping This is bilateral lower extremity greater saphenous vein mapping. Date of service: 10/18/2021 Vein quality and ultrasound appearance: We see no intraluminal thrombus or obvious wall changes. Vein size groin right : 4.5 x 5.4 groin left: 5.2 x 4.5 High thigh right: 3.1 x 4.2 high thigh left: 4.5 x 4.6 Mid thigh right: 3.5 x 5.3 mid thigh left: 3.8 x 4.1 Above-knee right: 3.0 x 3.4 above-knee left: 2.4 x 4.0 Below knee right: 2.1 x 2.7 below-knee left: 2.2 x 2.1 Mid calf right: 2.0 x 3.7 mid calf left: 2.2 x 2.7 Ankle right: 2.2 x 3.2 ankle left: 2.8 x 3.2 Impression: Usable bilateral greater saphenous vein..
[2021-10-21] MEDS ORDERED: MD COMMUNICATION TO PHARMACY 1 EACH MISC PO ONE ×2 (09:40)
[2021-10-21 09:46] LABS: ALT 61 U/L (4-49); AST 59 U/L (17-59); African American GFR (CKD) >90 (>60 ml/min/1.73 sqM); Albumin 3.4 g/dL (3.5-5.0); Alkaline Phosphatase 106 U/L (38-126); Anion Gap 4 mmol/L; Blood Urea Nitrogen 15 mg/dL (9-20); Carbon Dioxide 26 mmol/L (22-30); Chloride 107 mmol/L (98-107); Glucose 104 mg/dL (74-99); Non-African American GFR(CKD) 89 (>60 ml/min/1.73 sqM); Sodium 137 mmol/L (137-145); Total Bilirubin 1.1 mg/dL (0.2-1.3); Total Protein 5.9 g/dL (6.3-8.2)
--- NOTE | 2021-10-21 10:26 | P.PN ---
Subjective Progress Note Date: 10/21/21 This is a 71-year-old white male patient of Dr. Marty Pal with past history of chronic and ongoing tobacco dependence, patient carries over [id number] smoking history, daily marijuana use, family history of heart failure, and diabetes mellitus. Patient is not on any home medications. He presented to the emergency department on 10/17/2021 when he was awoken out of his sleep at 4:00 in the morning with chest pain radiating to his left arm. Patient was not complaining of any shortness of breath, his chest pain she described as dull and achy with pressure on the left side. There was associated with some nausea and sweating. His EKG shows sinus rhythm with a rate of [address]PM with no significant ST or T-wave changes. His chest x-ray was negative for any acute process. His troponins were 0.026, 1.440, 2.450, 0.601. The rest of his blood work has been reviewed showing CBC within normal limits, electrolytes and renal profile were unremarkable, LFTs were unremarkable, his lipid profile was unremarkable with the exception of HDL which was 37.6. Urinalysis showed 1+ glucose, and the rest was within normal limits, COVID-19 PCR was negative. Patient had a cardiac catheterization and was found to have severe triple-vessel disease with subtotal 99% LAD stenosis extending to the ostium and followed by an aneurysm formation, total occlusion of the first diagonal, 70% stenosis of the circumflex, critical lesion proximally in the RCA and total occlusion in the midportion with collateral flow. Patient was referred to CT surgery for evaluation for possibility of coronary artery bypass grafting surgery. On 10/20/2021 patient seen in follow-up on selective care unit, she is resting comfortably in bed, has had no episodes of chest pain overnight, he remains on heparin infusion. Lung sounds are clear to auscultation, no dyspnea, no cough, no fever or chills, no complaints of chest discomfort. Preop FEV1 was 65% of predicted. Patient was evaluated by CT surgery, and the plan is to proceed with off-pump myocardial revascularization ANGELES, endovascular vein harvest, and left atrial appendage ligation on on 2021. On 10/21/2021 patient seen in follow-up on selective care unit, he had an uneventful night, breathing comfortably, no complaints of chest pain, tolerating ambulation in the hallway, room air pulse ox is 95%, he is achieving 1397-4256 mL on the incentive spirometer, no fever or chills, no compressive chest discomfort, no coughing or wheezing. Today's labs have been reviewed, CBC is unremarkable, electrodes renal profile are within normal limits. Objective - Vital Signs Vital signs: Vital Signs Temp 97.6 F 10/21/21 08:00 Pulse 57 L 10/21/21 08:00 Resp 18 10/21/21 08:00 BP 103/58 10/21/21 08:00 Pulse Ox 95 10/21/21 08:00 Intake & Output 10/20/21 10/21/21 10/21/21 18:59 06:59 18:59 Intake Total 1450 180 Balance 1450 180 Intake: Intake, IV Titration 250 Amount Heparin Sod,Pork in 0.45% 250 NaCl 25,000 unit In 0.45 % NaCl 1 250ml.bag @ 12 UNITS/KG/HR 9.525 mls/hr IV .Q24H [facility] Rx#: [id number] Oral 1200 180 Other: Voiding Method Toilet Toilet Toilet # Voids 2 1 - Exam GENERAL EXAM: Alert, pleasant, 71-year-old white male on room air with a pulse ox of 97% comfortable in no apparent distress. HEAD: Normocephalic/atraumatic. EYES: Normal reaction of pupils, equal size. Conjunctiva pink, sclera white. NOSE: Clear with pink turbinates. THROAT: No erythema or exudates. NECK: No masses, no JVD, no thyroid enlargement, no adenopathy. CHEST: No chest wall deformity. Symmetrical expansion. LUNGS: Equal air entry with no crackles, wheeze, rhonchi or dullness. CVS: Regular rate and rhythm, normal S1 and S2, no gallops, no murmurs, no rubs ABDOMEN: Soft, nontender. No hepatosplenomegaly, normal bowel sounds, no guarding or rigidity. EXTREMITIES: No clubbing, no edema, no cyanosis, 2+ pulses and upper and lower extremities. MUSCULOSKELETAL: Muscle strength and tone normal. SPINE: No scoliosis or deformity SKIN: No rashes CENTRAL NERVOUS SYSTEM: Alert and oriented -3. No focal deficits, tone is normal in all 4 extremities. PSYCHIATRIC: Alert and oriented -3. Appropriate affect. Intact judgment and insight. - Labs CBC & Chem 7: 10/21/21 08:22 10/21/21 08:22 Labs: Abnormal Lab Results - Last 24 Hours (Table) 10/21/21 10/21/21 Range/Units 08:22 08:22 APTT 56.5 H (22.0-30.0) sec Glucose 104 H (74-99) mg/dL ALT 61 H (4-49) U/L Total Protein 5.9 L (6.3-8.2) g/dL Albumin 3.4 L (3.5-5.0) g/dL Assessment and Plan Plan: Assessment: #1. Acute non-ST elevated myocardial infarction #2. Multivessel coronary artery disease, with severe triple-vessel disease with subtotal 99% LAD stenosis, 100% occlusion of the first diagonal, 70% occlusion of the circumflex, critical stenosis of the RCA proximally and total occlusion in the midportion, with collateral flow. patient is scheduled for off-pump bypass surgery with ANGELES, endovascular vein harvest and left atrial appendage exclusion on 10/22/2021 #3. Chronic and ongoing history of smoking, carries [id number] smoking history, preop FEV1 was 65% of predicted #4. Daily marijuana smoker #5. Ischemic cardiomyopathy with EF of 30-35% Plan: Patient has been stable, without any specific complaints in the last 24 hours Tolerating ambulation, working on the incentive spirometer No complaints of shortness of breath No acute events overnight Patient is scheduled for off-pump CABG on 10/22/2021 We'll follow the patient in the postoperative period in the intensive care unit I performed a history & physical examination of the patient and discussed their management with my nurse practitioner, Pattie Mitchell. I reviewed the nurse practitioner's note and agree with the documented findings and plan of care. Lung sounds are positive for clear breath sounds throughout the lung hyatt. The findings and the impression was discussed with the patient. I attest to the documentation by the nurse practitioner. I have personally seen and examined the patient, performed the documentation and the assessment and plan as written. Number of minutes spent on the visit: 5 Time with Patient: Less than 30
--- NOTE | 2021-10-21 11:20 | PN ---
PROGRESS NOTE Mr. Murphy is in sinus rhythm, comfortable resting. He is going for open heart surgery tomorrow to be performed by Dr. Breen. Vitals are stable. No JVD. S1-S2 heard normally. Short systolic murmur. Lungs are clear. Abdomen is soft, nontender. Lower extremities reveal normal pulses. No edema. Central nervous system is normal. Plan is to proceed with aortocoronary bypass surgery tomorrow, and we will follow the patient. MMODL / IJN: [id number] /
[2021-10-21] MEDS: ACETAMINOPHEN TAB 325 MG TAB PO PRN ×2 (11:39→19:57)
--- NOTE | 2021-10-21 16:58 | P.PN ---
Subjective Progress Note Date: 10/20/21 This is a 71-year-old gentleman admitted with acute non-STEMI. Status post cardiac catheterization reporting multi-vessel CAD with severe triple vessel disease with subtotal 99% LAD stenosis, 100% occlusion of the first diagonal, 70% occlusion of the circumflex, critical stenosis of the RCA proximally and total occlusion in the midportion, with collateral flow. . Anticoagulated on heparin drip, scheduled for CABG on . Denies chest pain, palpitations or shortness of breath. Maintaining O2 sats in the 90s on room air. Objective - Vital Signs Vital signs: Vital Signs Temp 98.4 F 10/20/21 03:05 Pulse 65 10/20/21 03:05 Resp 16 10/20/21 03:05 BP 92/56 10/20/21 03:05 Pulse Ox 93 L 10/20/21 03:05 - Exam PHYSICAL EXAM: VITAL SIGNS: [As above] GENERAL: Sitting up in bed, no acute distress HEENT: Conjunctivae normal. eyes normal. Oral mucosa moist NECK: No JVD. No thyroid enlargement. No LNs CARDIOVASCULAR: S1, S2 regular.. No murmur RESPIRATION: Breath sounds diminished in the bases. No rhonchi or crackles. No bronchial breathing. ABDOMEN: Soft, nontender . No guarding. no masses palpable. Bowel sounds heard. LEGS: No edema. no swelling PSYCHIATRY: Alert and oriented X3, mood and affect normal. NERVOUS SYSTEM: Cranial N 2-12 grossly normal. Moves all 4 limbs. No focal deficits. Strength and sensation grossly intact.. Skin: Warm and dry, no rash - Labs CBC & Chem 7: 10/21/21 08:22 10/21/21 08:22 Labs: Abnormal Lab Results - Last 24 Hours (Table) 10/21/21 10/21/21 10/21/21 Range/Units 08:22 08:22 08:22 APTT 56.5 H (22.0-30.0) sec Glucose 104 H (74-99) mg/dL ALT 61 H (4-49) U/L Total Protein 5.9 L (6.3-8.2) g/dL Albumin 3.4 L (3.5-5.0) g/dL Crossmatch See Detail Assessment and Plan Assessment: Acute non-STEMI with severe triple vessel disease, CABG pending Ischemic cardiomyopathy, EF 30-35% with apical left ventricular wall hypokinesis COPD Ongoing nicotine dependence Daily marijuana Plan: Continue on current medication regime ,monitoring and symptomatic carson tment. Scheduled for . Aggressive pulmonary toileting with incentive spirometer reinforced. Smoking cessation reinforced. Prognosis guarded given multiple complex medical issues. The impression and plan of care has been dictated as directed. : I performed a history and examination of this patient, discussed the same with the dictator. I agree with the dictator's note ,documented as a scribe. Any additional findings or plans will be noted.
--- NOTE | 2021-10-21 17:04 | P.PN ---
Subjective Progress Note Date: 10/21/21 This is a 71-year-old gentleman admitted with acute non-STEMI. Status post cardiac catheterization reporting multi-vessel CAD with severe triple vessel disease with subtotal 99% LAD stenosis, 100% occlusion of the first diagonal, 70% occlusion of the circumflex, critical stenosis of the RCA proximally and total occlusion in the midportion, with collateral flow. . Anticoagulated on heparin drip, scheduled for CABG on . Denies chest pain, palpitations or shortness of breath. Maintaining O2 sats in the 90s on room air. 10/21/2021 had episode of heartburn last night, resolved with additional PPI with no reoccurrence. Denies chest pain, palpitations or shortness of breath. Afebrile. Maintaining O2 sats in the high 90s on room air. Chest x-ray pending. Labs pending. Objective - Vital Signs Vital signs: Vital Signs Temp 97.5 F L 10/21/21 16:00 Pulse 57 L 10/21/21 16:00 Resp 18 10/21/21 16:00 BP 92/64 10/21/21 16:00 Pulse Ox 98 10/21/21 16:00 Intake & Output 10/20/21 10/21/21 10/21/21 18:59 06:59 18:59 Intake Total 1450 360 Balance 1450 360 Intake: Intake, IV Titration 250 Amount Heparin Sod,Pork in 0.45% 250 NaCl 25,000 unit In 0.45 % NaCl 1 250ml.bag @ 12 UNITS/KG/HR 9.525 mls/hr IV .Q24H [facility] Rx#: [id number] Oral 1200 360 Other: Voiding Method Toilet Toilet Toilet # Voids 2 1 2 - Exam PHYSICAL EXAM: VITAL SIGNS: [As above] GENERAL: Sitting up in bed, no acute distress HEENT: Conjunctivae normal. eyes normal. Oral mucosa moist NECK: Supple, No JVD. CARDIOVASCULAR: S1, S2 regular. No murmur RESPIRATION: Breath sounds diminished in the bases. ABDOMEN: Soft, nontender . No guarding. no masses palpable. Positive bowel sounds. LEGS: No edema. no swelling. PSYCHIATRY: Alert and oriented X3, mood and affect normal. NERVOUS SYSTEM: Cranial N 2-12 grossly normal. Moves all 4 limbs. No focal deficits. Strength and sensation grossly intact. Skin: Warm and dry, no rash - Labs CBC & Chem 7: 10/21/21 08:22 10/21/21 08:22 Labs: Abnormal Lab Results - Last 24 Hours (Table) 10/21/21 10/21/21 10/21/21 Range/Units 08:22 08:22 08:22 APTT 56.5 H (22.0-30.0) sec Glucose 104 H (74-99) mg/dL ALT 61 H (4-49) U/L Total Protein 5.9 L (6.3-8.2) g/dL Albumin 3.4 L (3.5-5.0) g/dL Crossmatch See Detail Assessment and Plan Assessment: Acute non-STEMI with severe triple vessel disease, CABG pending Ischemic cardiomyopathy, EF 30-35% with apical left ventricular wall hypokinesis COPD Ongoing nicotine dependence Daily marijuana Plan: Continue on current medication regime ,monitoring and symptomatic treatment. Chest x-ray and labs pending. CABG Scheduled for tomorrow. Maintain aggressive pulmonary toileting with incentive spirometer reinforced. Prognosis guarded given multiple complex medical issues. The impression and plan of care has been dictated as directed. : I performed a history and examination of this patient, discussed the same with the dictator. I agree with the dictator's note ,documented as a scribe. Any additional findings or plans will be noted.
[2021-10-21] MEDS: HEPARIN SOD,PORK IN 0.45% NACL 25,000 UNIT in 0.45% NACL 1 250ML.BAG IV SCH (18:49)
[2021-10-21] MEDS: MELATONIN 3 MG TABLET PO SCH (19:42)
[2021-10-21] MEDS: SODIUM CHLORIDE 0.9% 1,000 ML IV SCH (19:43)
[2021-10-22] MEDS ORDERED: PROTAMINE SULFATE 10 MG/ML 25 ML VIAL IV ONE (05:00)
[2021-10-22] MEDS ORDERED: ALBUMIN HUMAN 5% 500 ML in EMPTY BAG 1 BAG IVPB ONE ×6 (05:00)
[2021-10-22] MEDS ORDERED: NOREPINEPHRINE 4 MG in SODIUM CHLORIDE 0.9% 250 ML IV SCH (05:00)
[2021-10-22] MEDS ORDERED: PAPAVERINE 360 MG in SODIUM CHLORIDE 0.9% 90 ML IV ONE ×2 (05:00→09:17)
[2021-10-22] MEDS ORDERED: CHLORHEXIDINE GLUCONATE 15 ML CUP MUCOUS MEM ONE (05:00)
[2021-10-22] MEDS ORDERED: NITROGLYCERIN-D5W PMX 25 MG/250 ML BTL IV ONE (05:00)
[2021-10-22] MEDS ORDERED: LACTATED RINGERS 1,000 ML IV SCH (05:00)
[2021-10-22] MEDS ORDERED: CLEVIDIPINE BUTYRATE 25 MG in EMPTY BAG 1 BAG IV SCH (05:00)
[2021-10-22] MEDS ORDERED: MANNITOL 25% 12.5 GM/50 ML VIAL IV ONE ×2 (05:00)
[2021-10-22] MEDS ORDERED: METOPROLOL TARTRATE 12.5 MG TAB PO ONE (05:00)
[2021-10-22] MEDS ORDERED: INSULIN REGULAR 100 UNIT in SODIUM CHLORIDE 0.9% 100 ML IV SCH ×2 (05:00→13:22)
[2021-10-22] MEDS ORDERED: MAGNESIUM SULFATE 16.24 MEQ in EMPTY SYRINGE 1 SYR IV ONE (05:00)
[2021-10-22] MEDS ORDERED: ELECTROLYTE-A SOLUTION 1,000 ML with POTASSIUM CHLORIDE 100 MEQ, MAGNESIUM SULFATE 16 M... IV SCH ×5 (05:00)
[2021-10-22] MEDS ORDERED: ELECTROLYTE-A SOLUTION 1,000 ML with POTASSIUM CHLORIDE 40 MEQ, MAGNESIUM SULFATE 16 ME... IV SCH ×5 (05:00)
[2021-10-22] MEDS ORDERED: SODIUM BICARB 8.4% 50 ML SYR (1 MEQ/ML) IV ONE (05:00)
[2021-10-22] MEDS ORDERED: HEPARIN SODIUM,PORCINE 5,000 UNIT in SODIUM CHLORIDE 0.9% 500 ML 500 ML IV ONE (05:00)
[2021-10-22] MEDS ORDERED: TRANEXAMIC ACID 2,000 MG in SODIUM CHLORIDE 0.9% 80 ML IV ONE (05:00)
[2021-10-22] MEDS ORDERED: PHENYLEPHRINE 40 MG in SODIUM CHLORIDE 0.9% 250 ML IV ONE (05:00)
[2021-10-22] MEDS ORDERED: ASPIRIN 325 MG TAB PO ONE (05:00)
[2021-10-22] MEDS ORDERED: HEPARIN SODIUM 1,000 UN/ML (10ML VL) IV ONE (05:00)
[2021-10-22] MEDS ORDERED: PHENYLEPHRINE 10 MG/ML VIAL IV ONE (05:00)
[2021-10-22] MEDS ORDERED: NITROGLYCERIN-D5W PMX 50 MG in DEXTROSE/WATER 1 250ML.BAG IV SCH (05:00)
[2021-10-22] MEDS ORDERED: ALBUMIN HUMAN 25% 50 ML in EMPTY BAG 1 BAG IVPB ONE (05:00)
[2021-10-22] MEDS ORDERED: PROTAMINE SULFATE 250 MG in EMPTY BAG 1 BAG IV ONE (05:00)
[2021-10-22] MEDS ORDERED: ceFAZolin 1,000 MG in SODIUM CHLORIDE 0.9% IRRIGATIO 1,000 ML IRRIGATION ONE (05:00)
[2021-10-22] MEDS ORDERED: CALCIUM CHLORIDE 100 MG/ML 10 ML SYRINGE IVP ONE (05:00)
[2021-10-22 05:02] LABS: Glucose,Whole Blood 112 mg/dL (75-99)
[2021-10-22] MEDS: ATORVASTATIN 40 MG TAB PO SCH (05:51)
[2021-10-22] MEDS ORDERED: IV FLUID CONTINUATION 1,000 ML IV ONE (06:15)
[2021-10-22] MEDS ORDERED: ALBUMIN HUMAN 5% (25gm) 500 ML VIAL IVPB ONE (07:40)
[2021-10-22] MEDS ORDERED: VECURONIUM 10 MG VIAL IV ONE (07:40)
[2021-10-22] MEDS ORDERED: SODIUM CHLORIDE 0.9% 100 ML BAG ONE (07:40)
[2021-10-22] MEDS ORDERED: ALBUMIN HUMAN 5% (12.5gm) 250 ML BOTTLE IVPB ONE (07:40)
[2021-10-22] MEDS ORDERED: MAGNESIUM SULFATE 4 MEQ/ML 10ML VIAL ONE (07:40)
[2021-10-22] MEDS ORDERED: ePHEDrine 50 MG/ML 1 ML VIAL ONE (07:40)
[2021-10-22] MEDS ORDERED: ceFAZolin 1,000 MG VIAL ONE (07:40)
[2021-10-22] MEDS ORDERED: PHENYLEPHRINE-0.9% NACL SYG 1,000 MCG/10 ML SYRINGE ONE (07:40)
[2021-10-22] MEDS ORDERED: PROPOFOL 10 MG/ML 20 ML VIAL IV ONE (07:40)
[2021-10-22] MEDS ORDERED: MIDAZOLAM 2 MG/2 ML VIAL ONE (07:40)
[2021-10-22] MEDS ORDERED: fentaNYL (PF) 50 MCG/ML 50 ML VIAL ONE (07:40)
[2021-10-22] MEDS ORDERED: POTASSIUM CHLORIDE OPEN HEART 20 MEQ/50 ML BAG IVPB ONE (07:40)
[2021-10-22] MEDS ORDERED: CALCIUM CHLORIDE 100 MG/ML 10 ML SYRINGE ONE (07:40)
[2021-10-22] MEDS ORDERED: SODIUM BICARB 8.4% 50 ML SYR (1 MEQ/ML) ONE (07:40)
[2021-10-22] MEDS ORDERED: NITROGLYCERIN-D5W PMX 50 MG/250 ML BOTTLE IV ONE (07:40)
[2021-10-22] MEDS ORDERED: HEPARIN SODIUM,PORCINE 10,000 UNIT/ML 1 ML VIAL ONE (07:40)
[2021-10-22] MEDS ORDERED: LIDOCAINE 2% SYG (PF) 100 MG/5 ML ONE (07:40)
[2021-10-22 08:29] LABS: ABG Base Excess -0.7 mmol/L; ABG Glucose Whole Blood 99 mg/dL (75-99); ABG HCO3 25 mmol/L (21-25); ABG Hematocrit 41 % (34.0-46.0); ABG Ionized Calcium 4.7 mg/dL (4.5-5.3); ABG Lactic Acid Whole Blood 1.5 mmol/L (0.5-1.6); ABG Oxygen Saturation 99.7 % (94-97); ABG PCO2 42 mmHg (35-45); ABG PH 7.38 (7.35-7.45); ABG PO2 215 mmHg (83-108); ABG Potassium Whole Blood 4.1 mmol/L (3.4-4.5); ABG Sodium Whole Blood 141 mmol/L (135-146); ABG TCO2 26 mmol/L (19-24)
[2021-10-22] MEDS ORDERED: SODIUM CHLORIDE 0.9% 500 ML 500 ML with HEPARIN SODIUM,PORCINE 5,000 UNIT IV ONE ×2 (09:16)
[2021-10-22] MEDS ORDERED: ceFAZolin 1,000 MG in SODIUM CHLORIDE 0.9% 1,000 ML IRRIGATION ONE (09:17)
[2021-10-22 09:54] LABS: ABG Base Excess -3.4 mmol/L; ABG Glucose Whole Blood 112 mg/dL (75-99); ABG HCO3 25 mmol/L (21-25); ABG Hematocrit 34 % (34.0-46.0); ABG Ionized Calcium 4.6 mg/dL (4.5-5.3); ABG Lactic Acid Whole Blood 0.6 mmol/L (0.5-1.6); ABG Oxygen Saturation 99.3 % (94-97); ABG PCO2 58 mmHg (35-45); ABG PH 7.24 (7.35-7.45); ABG PO2 197 mmHg (83-108); ABG Potassium Whole Blood 3.8 mmol/L (3.4-4.5); ABG Sodium Whole Blood 142 mmol/L (135-146); ABG TCO2 27 mmol/L (19-24)
[2021-10-22 10:25] LABS: ABG Base Excess 0.1 mmol/L; ABG Glucose Whole Blood 123 mg/dL (75-99); ABG HCO3 26 mmol/L (21-25); ABG Hematocrit 31 % (34.0-46.0); ABG Ionized Calcium 4.5 mg/dL (4.5-5.3); ABG Lactic Acid Whole Blood 0.6 mmol/L (0.5-1.6); ABG Oxygen Saturation 99.3 % (94-97); ABG PCO2 50 mmHg (35-45); ABG PH 7.33 (7.35-7.45); ABG PO2 176 mmHg (83-108); ABG Potassium Whole Blood 3.8 mmol/L (3.4-4.5); ABG Sodium Whole Blood 143 mmol/L (135-146); ABG TCO2 28 mmol/L (19-24)
[2021-10-22 11:00] LABS: ABG Glucose Whole Blood 124 mg/dL (75-99); ABG HCO3 25 mmol/L (21-25); ABG Hematocrit 29 % (34.0-46.0); ABG Ionized Calcium 4.3 mg/dL (4.5-5.3); ABG Lactic Acid Whole Blood 0.7 mmol/L (0.5-1.6); ABG Oxygen Saturation 99.5 % (94-97); ABG PCO2 43 mmHg (35-45); ABG PH 7.38 (7.35-7.45); ABG PO2 207 mmHg (83-108); ABG Potassium Whole Blood 4.3 mmol/L (3.4-4.5); ABG Sodium Whole Blood 142 mmol/L (135-146); ABG TCO2 27 mmol/L (19-24)
[2021-10-22 11:41] LABS: ABG Base Excess 0.2 mmol/L; ABG Glucose Whole Blood 120 mg/dL (75-99); ABG HCO3 26 mmol/L (21-25); ABG Hematocrit 30 % (34.0-46.0); ABG Ionized Calcium 4.7 mg/dL (4.5-5.3); ABG Lactic Acid Whole Blood 0.8 mmol/L (0.5-1.6); ABG Oxygen Saturation 99.6 % (94-97); ABG PCO2 46 mmHg (35-45); ABG PH 7.36 (7.35-7.45); ABG PO2 224 mmHg (83-108); ABG Potassium Whole Blood 4.2 mmol/L (3.4-4.5); ABG Sodium Whole Blood 142 mmol/L (135-146); ABG TCO2 27 mmol/L (19-24)
[2021-10-22 12:54] LABS: ABG Base Excess -1.1 mmol/L; ABG Glucose Whole Blood 117 mg/dL (75-99); ABG HCO3 25 mmol/L (21-25); ABG Hematocrit 34 % (34.0-46.0); ABG Ionized Calcium 5.5 mg/dL (4.5-5.3); ABG Oxygen Saturation 99.2 % (94-97); ABG PCO2 47 mmHg (35-45); ABG PH 7.34 (7.35-7.45); ABG PO2 174 mmHg (83-108); ABG Potassium Whole Blood 3.8 mmol/L (3.4-4.5); ABG Sodium Whole Blood 141 mmol/L (135-146); ABG TCO2 27 mmol/L (19-24)
--- NOTE | 2021-10-22 13:21 | P.PN ---
Progress Note - Text Progress Note Date: 10/22/21 Patient not seen, in OR for CABG. The impression and plan of care has been dictated as directed. : I performed a history and examination of this patient, discussed the same with the dictator. I agree with the dictator's note ,documented as a scribe. Any additional findings or plans will be noted.
[2021-10-22] MEDS ORDERED: hydrALAZINE HCL 20 MG/ML 1 ML VIAL IVP PRN (13:22)
[2021-10-22] MEDS ORDERED: METOCLOPRAMIDE 5 MG/ML 2 ML VIAL IVP PRN (13:22)
[2021-10-22] MEDS ORDERED: BENZOCAINE/MENTHOL LOZENG 1 EACH LOZENGE MUCOUS MEM PRN (13:22)
[2021-10-22] MEDS ORDERED: DEXMEDETOMIDINE/0.9% NACL(PMX) 400 MCG in EMPTY BAG 1 BAG IV SCH (13:22)
[2021-10-22] MEDS ORDERED: CALCIUM GLUCONATE 2 GM in SODIUM CHLORIDE 0.9% 100 ML IVPB PRN (13:22)
[2021-10-22] MEDS ORDERED: AMIODARONE 450 MG in DEXTROSE 5% IN WATER 250 ML IV PRN ×2 (13:22)
[2021-10-22] MEDS ORDERED: Phosphorus Replacement Protoco 1 EACH MISC MISCELLANE PRN (13:22)
[2021-10-22] MEDS ORDERED: Magnesium Replacement Protocol 1 EACH MISC MISCELLANE PRN (13:22)
[2021-10-22] MEDS ORDERED: AMIODARONE 360 MG in DEXTROSE 5% IN WATER 200 ML IV PRN ×2 (13:22)
[2021-10-22] MEDS ORDERED: ALBUMIN HUMAN 5% 250 ML IVPB ONE (13:22)
[2021-10-22] MEDS ORDERED: ONDANSETRON 4 MG/2 ML VIAL IVP PRN (13:22)
[2021-10-22] MEDS ORDERED: Potassium Replacement Protocol 1 EACH MISC MISCELLANE PRN (13:22)
[2021-10-22] MEDS ORDERED: IPRATROPIUM-ALBUTEROL 3 ML NEB INHALATION PRN (13:22)
[2021-10-22] MEDS: SODIUM CHLORIDE 0.9% 1,000 ML IV SCH (13:24)
[2021-10-22] MEDS: NOREPINEPHRINE 4 MG in SODIUM CHLORIDE 0.9% 250 ML IV SCH (13:30)
[2021-10-22 13:43] LABS: Glucose,Whole Blood 109 mg/dL (75-99)
--- NOTE | 2021-10-22 13:46 | P.OP ---
Date of Procedure: 10/22/21 Preoperative Diagnosis: NSTEMI Coronary Artery Disease Postoperative Diagnosis: Same Procedure(s) Performed: 1. Off Pump Coronary Artery Bypass Grafting x 2. Left internal thoracic artery to left anterior descending artery. Saphenous vein graft to posterior descending artery. 2. Endoscopic left greater saphenous vein harvest. 3. Trans-esophageal echo 4. Left atrial appendage ligation using #35mm AtraClip 5. Graft flow measurement using the Medistim flow device. Anesthesia: KEVINA Surgeon: Reinaldo Breen Family Support Specialist #1: Yusef Blackwell Family Support Specialist #2: Claude Rhoades Estimated Blood Loss (ml): 2,000 Pathology: none sent Condition: stable Disposition: ICU Indications for Procedure: This patient is a 71 year-old male who presented with chest pain. He was diagnosed with NSTEMI and underwent coronary angiography which revealed 3 vessel disease with decreased ejection fraction of 35%. Left heart cath revealed 99% proximal LAD lesion, completed occluded RCA and 70% circumflex stenosis however the circumflex system was extremely small on cath including the obtuse marginal branch. All risks, benefits, alternatives were discussed with the patient. His risk of morbidity and mortality were discussed with him including his STS score and informed consent was obtained. Operative Findings: MAX 1.25mm, small but good conduit. LAD 1.25mm small but a good target PDA 1.5mm diffusely diseased but a decent target distally. SVG 2.5mm and good conduit. EF after CABG improved to 45-50% ANGELES-LAD 22ml/min with 2.3 P.I. SVG- PDA 17ml/min with 4.6 P.I. Description of Procedure: The patient underwent central line, swan gretchen and arterial line placement by the anesthesia team in the pre-operative suite. He was brought back to the operating room and placed in the supine position. He was prepped from the chin to the ankles in the usual sterile fashion. A time-out was performed and antibiotics were given. An incision was made in the midline sternum. This was carried down to bone and a median sternotomy was performed. Hemostasis on the bone was achieved using gel foam and ostene. The left pleura was incised and the left internal thoracic artery was harvested in a skeletonized fashion. A left sided chest tube was placed and the patient was systemically heparinized and the MAX was ligated distally, transected and placed in a papverine jacuzzi. Simultaneously an retail event and sales assistant harvested the left greater saphenous vein endoscopically. The pericardium was opened in a T fashion and a pericardial cradle was created. Stay sutures were placed. The octopus stabilizer was placed on the LAD. The ANGELES was prepared and an arteriotomy was made on the LAD which was a 1.25mm decent target. An end to side anastomosis was performed using running 7-0 prolene. Next a 35mm atraclip was placed on the left atrial appendage effectively ligating it. Next the inferior wall of the heart was exposed and brought into the field. In the process of exposing the distal RCA, there was an injury noted to the acute marginal branch. This was a sub millimeter vessel and heavily calcified. I did have to ligate the vessel to control the injury. The octopus device was then used to stabilize the posterior descending artery which was a 1.5mm diffusely diseased vessel. We were able to find a good target distally. An end to side anastomosis was performed between the saphenous vein and PDA using running 7-0 prolene. Finally the saphenous vein was fashioned to the ascending aorta using the heartstring device and running 5-0 prolene suture. Protamine was given and graft flows were measured using the medistim device. Please refer to findings section for further details on exact graft flows. Hemostasis was assured and an additional chest tube and ese were left in the mediastinum. The pericardium was closed and the sternum was re-approximated using cables and a single steel wire. The fascia was closed using ethibond and the subcutaneous tissues and skin of the chest and leg were closed in layers using vicryl. The patient tolerated the off pump procedure well without any prolonged episodes of hypotension and transferred to ICU still intubated, not requiring any ionotropes. His EF was noted to have improved after revascularization to 45- 50%.. All counts were correct.
[2021-10-22 13:52] LABS: Basophils # (A) 0.1 k/uL (0-0.2); Basophils % (A) 1 %; Eosinophils # (A) 0.2 k/uL (0-0.7); Eosinophils % (A) 3 %; HCT 31.3 % (39.0-53.0); Lymphocytes # (A) 1.4 k/uL (1.0-4.8); Lymphocytes % (A) 21 %; MCH 32.6 pg (25.0-35.0); MCHC 34.2 g/dL (31.0-37.0); MCV 95.3 fL (80.0-100.0); Mean Platelet Volume 8.2; Monocytes # (A) 0.2 k/uL (0-1.0); Monocytes % (A) 3 %; Neutrophils # (A) 4.9 k/uL (1.3-7.7); Neutrophils % (A) 72 %; Platelet Count 100 k/uL (150-450); RBC 3.29 m/uL (4.30-5.90); RDW 15.3 % (11.5-15.5); WBC 6.8 k/uL (3.8-10.6)
[2021-10-22 13:55] LABS: HGB 10.7 gm/dL (13.0-17.5)
[2021-10-22] MEDS: ALBUMIN HUMAN 5% 250 ML in EMPTY BAG 1 BAG IVPB PRN ×3 (13:55→15:08)
[2021-10-22 13:57] LABS: Ionized Calcium 5.1 mg/dL (4.5-5.3)
[2021-10-22 14:00] LABS: INR 1.2 (<1.2)
[2021-10-22 14:05] LABS: ALT 34 U/L (4-49); AST 38 U/L (17-59); African American GFR (CKD) >90 (>60 ml/min/1.73 sqM); Albumin 2.7 g/dL (3.5-5.0); Alkaline Phosphatase 35 U/L (38-126); Anion Gap 5 mmol/L; Blood Urea Nitrogen 12 mg/dL (9-20); Calcium 7.9 mg/dL (8.4-10.2); Carbon Dioxide 22 mmol/L (22-30); Chloride 111 mmol/L (98-107); Glucose 108 mg/dL (74-99); Magnesium 1.8 mg/dL (1.6-2.3); Non-African American GFR(CKD) >90 (>60 ml/min/1.73 sqM); Potassium 3.8 mmol/L (3.5-5.1); Sodium 138 mmol/L (137-145); Total Bilirubin 1.2 mg/dL (0.2-1.3); Total Protein 4.2 g/dL (6.3-8.2)
[2021-10-22 14:11] LABS: ABG Base Excess -1.4 mmol/L; ABG HCO3 25 mmol/L (21-25); ABG Oxygen Saturation 99.5 % (94-97); ABG PCO2 46 mmHg (35-45); ABG PH 7.33 (7.35-7.45); ABG PO2 >400 mmHg (83-108); ABG TCO2 26 mmol/L (19-24)
[2021-10-22 14:13] LABS: Allen Test Performed? no
[2021-10-22] MEDS: CLEVIDIPINE BUTYRATE 25 MG in EMPTY BAG 1 BAG IV SCH (14:21)
[2021-10-22] MEDS: LACTATED RINGERS 1,000 ML IV SCH (14:22)
[2021-10-22] MEDS: NITROGLYCERIN-D5W PMX 50 MG in DEXTROSE/WATER 1 250ML.BAG IV SCH (14:23)
--- NOTE | 2021-10-22 14:26 | XR ---
EXAMINATION TYPE: XR chest 1V portable DATE OF EXAM: 10/22/2021 Comparison: 10/21/2021 Clinical History: 71-year-old male Post Operative Cardiac Surgery Findings: ET tube satisfactory. NG tube courses into the left upper quadrant. Mediastinal drains. Right IJ [place] -[place] catheter tip at the proximal right main pulmonary artery. Left chest tube in place. Possible ti ny 4 mm left apical pneumothorax. Mild interstitial prominence in the lower lungs. Hyperinflation. No sizable pleural effusion. Median sternotomy wires and post-CABG clips in the mediastinum. Heart norm al size. Impression: 1. Post-CABG changes. Left chest tube in place with possible tiny 4 mm left apical pneumothorax. 2. Some patchy interstitial changes in the lower lungs could reflect areas of prominent atelectasis o r mild pulmonary vascular congestion.
--- NOTE | 2021-10-22 14:34 | P.PN ---
Subjective Progress Note Date: 10/22/21 Principal diagnosis: Status post CABG, postoperative day #0 This is a 71-year-old white male patient of Dr. Marty Pal with past history of chronic and ongoing tobacco dependence, patient carries over [id number] smoking history, daily marijuana use, family history of heart failure, and diabetes mellitus. Patient is not on any home medications. He presented to the emergency department on 10/17/2021 when he was awoken out of his sleep at 4:00 in the morning with chest pain radiating to his left arm. Patient was not complaining of any shortness of breath, his chest pain she described as dull and achy with pressure on the left side. There was associated with some nausea and sweating. His EKG shows sinus rhythm with a rate of [address]PM with no significant ST or T-wave changes. His chest x-ray was negative for any acute process. His troponins were 0.026, 1.440, 2.450, 0.601. The rest of his blood work has been reviewed showing CBC within normal limits, electrolytes and renal profile were unremarkable, LFTs were unremarkable, his lipid profile was unremarkable with the exception of HDL which was 37.6. Urinalysis showed 1+ glucose, and the rest was within normal limits, COVID-19 PCR was negative. Patient had a cardiac catheterization and was found to have severe triple-vessel disease with subtotal 99% LAD stenosis extending to the ostium and followed by an aneurysm formation, total occlusion of the first diagonal, 70% stenosis of the circumflex, critical lesion proximally in the RCA and total occlusion in the midportion with collateral flow. Patient was referred to CT surgery for evaluation for possibility of coronary artery bypass grafting surgery. On 10/20/2021 patient seen in follow-up on selective care unit, she is resting comfortably in bed, has had no episodes of chest pain overnight, he remains on heparin infusion. Lung sounds are clear to auscultation, no dyspnea, no cough, no fever or chills, no complaints of chest discomfort. Preop FEV1 was 65% of predicted. Patient was evaluated by CT surgery, and the plan is to proceed with off-pump myocardial revascularization ANGELES, endovascular vein harvest, and left atrial appendage ligation on on 2021. On 10/21/2021 patient seen in follow-up on selective care unit, he had an uneventful night, breathing comfortably, no complaints of chest pain, tolerating ambulation in the hallway, room air pulse ox is 95%, he is achieving 9133-5907 mL on the incentive spirometer, no fever or chills, no compressive chest discomfort, no coughing or wheezing. Today's labs have been reviewed, CBC is unremarkable, electrodes renal profile are within normal limits. Patient was reevaluated today on 10/18/2021, patient is status post 2 vessel bypass surgery, off pump, patient is now in the ICU intubated and mechanically ventilated. Patient is on tidal volume of 550 assist-control rate of 14 FiO2 100% PEEP of 5. Patient is requiring norepinephrine at 0.03 mcg/kg/m, patient is on nitroglycerin drip at 5 mcg/m, is also on propofol at 20 mcg/kg/m. His cardiac output is 3.5, cardiac index is 1.8, patient is sedated, and he has a mediastinal chest tube in the left pleural chest tube in place. No significant bleeding is noted. ABG today showed a pO2 of more than 400 pCO2 of 46 pH of 7.33, rate was increased from 14-16, FiO2 cut down to 45%. Chest x-ray showed adequate placement of the endotracheal tube, and adequate placement of the different chest tubes, no acute process is noted. Objective - Vital Signs Vital signs: Vital Signs Temp 97.4 F L 10/22/21 05:59 Pulse 51 L 10/22/21 05:59 Resp 18 10/22/21 05:59 BP 133/76 10/22/21 05:59 Pulse Ox 99 10/22/21 05:59 Intake & Output 10/21/21 10/22/21 10/22/21 18:59 06:59 18:59 Intake Total 1203.32 169.28 53 Output Total 2580 Balance 1203.32 169.28 -2527 Weight 76.5 kg Intake: IV 50 53 Intake, IV Titration 623.32 119.28 Amount Heparin Sod,Pork in 0.45% 250 119.28 NaCl 25,000 unit In 0.45 % NaCl 1 250ml.bag @ 12 UNITS/KG/HR 9.525 mls/hr IV .Q24H [facility] Rx#: [id number] Heparin Sodium,Porcine 5, 133.32 000 unit In Sodium Chloride 0.9% 500 ml 500 ml @ As Directed IV ONCE ONE Rx#:[id number] Insulin Regular 100 unit 240 In Sodium Chloride 0.9% 100 ml @ Titrate IV .Q0M [facility] Rx#:[id number] Oral 580 Output: Urine 580 Estimated Blood Loss 2000 Other: Voiding Method Toilet Toilet # Voids 2 1 - Exam Physical Exam revealed 71-year-old white male intubated mechanically ventilated, in no distress. Head: Atraumatic, normocephalic. HEENT:[Neck is supple.] [No neck masses.] [No thyromegaly.] [No JVD.] Endotrach eal tube and orogastric tube are intact. Chest: [Symmetrical chest expansion minimal crackles at the bases, mediastinal chest tube and left pleural chest tube are noted. Cardiac Exam: [Normal S1 and S2, no S3 gallop, no murmur.] Abdomen: [Soft, nontender, no megaly, no rebound, no guarding, normal bowel sounds.] Extremities: [No clubbing, no edema, no cyanosis.] Neurological Exam: Cannot be assessed patient is sedated. Psychiatric: Could not be assessed, patient is sedated. - Labs CBC & Chem 7: 10/22/21 13:40 10/22/21 13:40 Labs: Abnormal Lab Results - Last 24 Hours (Table) 10/21/21 10/22/21 10/22/21 Range/Units 08:22 05:00 05:36 RBC (4.30-5.90) m/uL Hgb (13.0-17.5) gm/dL Hct (39.0-53.0) % Plt Count (150-450) k/uL PT (9.0-12.0) sec INR (<1.2) APTT 71.2 H (22.0-30.0) sec ABG pH (7.35-7.45) ABG pCO2 (35-45) mmHg ABG pO2 (83-108) mmHg ABG HCO3 (21-25) mmol/L ABG Total CO2 (19-24) mmol/L ABG O2 Saturation (94-97) % ABG Hematocrit (34.0-46.0) % ABG Ionized Calcium (4.5-5.3) mg/dL ABG Glucose (75-99) mg/dL Hemoglobin (13.0-17.5) gm/dL Chloride (98-107) mmol/L Creatinine (0.66-1.25) mg/dL Glucose (74-99) mg/dL POC Glucose (mg/dL) 112 H (75-99) mg/dL Calcium (8.4-10.2) mg/dL Alkaline Phosphatase (38-126) U/L Total Protein (6.3-8.2) g/dL Albumin (3.5-5.0) g/dL Arterial Blood Glucose (75-99) mg/dL Crossmatch See Detail 10/22/21 10/22/21 10/22/21 Range/Units 08:29 09:54 10:25 RBC (4.30-5.90) m/uL Hgb (13.0-17.5) gm/dL Hct (39.0-53.0) % Plt Count (150-450) k/uL PT (9.0-12.0) sec INR (<1.2) APTT (22.0-30.0) sec ABG pH 7.24 L 7.33 L (7.35-7.45) ABG pCO2 58 H 50 H (35-45) mmHg ABG pO2 215 H 197 H 176 H (83-108) mmHg ABG HCO3 26 H (21-25) mmol/L ABG Total CO2 26 H 27 H 28 H (19-24) mmol/L ABG O2 Saturation 99.7 H 99.3 H 99.3 H (94-97) % ABG Hematocrit 31 L (34.0-46.0) % ABG Ionized Calcium (4.5-5.3) mg/dL ABG Glucose 112 H 123 H (75-99) mg/dL Hemoglobin 11.2 L 10.2 L (13.0-17.5) gm/dL Chloride (98-107) mmol/L Creatinine (0.66-1.25) mg/dL Glucose (74-99) mg/dL POC Glucose (mg/dL) (75-99) mg/dL Calcium (8.4-10.2) mg/dL Alkaline Phosphatase (38-126) U/L Total Protein (6.3-8.2) g/dL Albumin (3.5-5.0) g/dL Arterial Blood Glucose 112 H 123 H (75-99) mg/dL Crossmatch 10/22/21 10/22/21 10/22/21 Range/Units 11:00 11:41 12:54 RBC (4.30-5.90) m/uL Hgb (13.0-17.5) gm/dL Hct (39.0-53.0) % Plt Count (150-450) k/uL PT (9.0-12.0) sec INR (<1.2) APTT (22.0-30.0) sec ABG pH 7.34 L (7.35-7.45) ABG pCO2 46 H 47 H (35-45) mmHg ABG pO2 207 H 224 H 174 H (83-108) mmHg ABG HCO3 26 H (21-25) mmol/L ABG Total CO2 27 H 27 H 27 H (19-24) mmol/L ABG O2 Saturation 99.5 H 99.6 H 99.2 H (94-97) % ABG Hematocrit 29 L 30 L (34.0-46.0) % ABG Ionized Calcium 4.3 L 5.5 H (4.5-5.3) mg/dL ABG Glucose 124 H 120 H 117 H (75-99) mg/dL Hemoglobin 9.5 L 9.7 L 11.2 L (13.0-17.5) gm/dL Chloride (98-107) mmol/L Creatinine (0.66-1.25) mg/dL Glucose (74-99) mg/dL POC Glucose (mg/dL) (75-99) mg/dL Calcium (8.4-10.2) mg/dL Alkaline Phosphatase (38-126) U/L Total Protein (6.3-8.2) g/dL Albumin (3.5-5.0) g/dL Arterial Blood Glucose 124 H 120 H 117 H (75-99) mg/dL Crossmatch 10/22/21 10/22/21 10/22/21 Range/Units 13:40 13:40 13:40 RBC 3.29 L (4.30-5.90) m/uL Hgb 10.7 L D (13.0-17.5) gm/dL Hct 31.3 L (39.0-53.0) % Plt Count 100 L (150-450) k/uL PT 13.0 H (9.0-12.0) sec INR 1.2 H (<1.2) APTT 35.0 H (22.0-30.0) sec ABG pH (7.35-7.45) ABG pCO2 (35-45) mmHg ABG pO2 (83-108) mmHg ABG HCO3 (21-25) mmol/L ABG Total CO2 (19-24) mmol/L ABG O2 Saturation (94-97) % ABG Hematocrit (34.0-46.0) % ABG Ionized Calcium (4.5-5.3) mg/dL ABG Glucose (75-99) mg/dL Hemoglobin (13.0-17.5) gm/dL Chloride (98-107) mmol/L Creatinine (0.66-1.25) mg/dL Glucose (74-99) mg/dL POC Glucose (mg/dL) 109 H (75-99) mg/dL Calcium (8.4-10.2) mg/dL Alkaline Phosphatase (38-126) U/L Total Protein (6.3-8.2) g/dL Albumin (3.5-5.0) g/dL Arterial Blood Glucose (75-99) mg/dL Crossmatch 10/22/21 10/22/21 Range/Units 13:40 14:09 RBC (4.30-5.90) m/uL Hgb (13.0-17.5) gm/dL Hct (39.0-53.0) % Plt Count (150-450) k/uL PT (9.0-12.0) sec INR (<1.2) APTT (22.0-30.0) sec ABG pH 7.33 L (7.35-7.45) ABG pCO2 46 H (35-45) mmHg ABG pO2 >400 H (83-108) mmHg ABG HCO3 (21-25) mmol/L ABG Total CO2 26 H (19-24) mmol/L ABG O2 Saturation 99.5 H (94-97) % ABG Hematocrit (34.0-46.0) % ABG Ionized Calcium (4.5-5.3) mg/dL ABG Glucose (75-99) mg/dL Hemoglobin (13.0-17.5) gm/dL Chloride 111 H (98-107) mmol/L Creatinine 0.58 L (0.66-1.25) mg/dL Glucose 108 H (74-99) mg/dL POC Glucose (mg/dL) (75-99) mg/dL Calcium 7.9 L (8.4-10.2) mg/dL Alkaline Phosphatase 35 L (38-126) U/L Total Protein 4.2 L (6.3-8.2) g/dL Albumin 2.7 L (3.5-5.0) g/dL Arterial Blood Glucose (75-99) mg/dL Crossmatch Microbiology - Last 24 Hours (Table) 10/21/21 16:03 Nasal Screen MRSA/MSSA - Preliminary Nasal Swab Assessment and Plan Assessment: Impression: Status post off-pump CABG 2, ANGELES to LAD, and SVG to posterior descending artery. Postoperative day #0. Status post acute non-ST elevation myocardial infarction on his initial presentation. Multivessel coronary artery disease Tobacco dependence syndrome, patient has a [id number] smoking history however his FEV1 was 65% of the predicted. Ischemic cardiomyopathy and LV dysfunction with ejection fraction of 30-35%. Recommendation: Continue ventilatory support. Decrease FiO2 to 45%. Increase the rate to 16. Continue norepinephrine, hemodynamic support as needed. Continue GI and DVT prophylaxis. Resume cardiac meds. Chest x-ray was reviewed and seems to be unremarkable. Plan to wean and extubate the patient in the next couple of hours. We'll continue to follow. Critical care time is over 30 minutes. Time with Patient: Greater than 30
[2021-10-22 14:46] LABS: Glucose,Whole Blood 122 mg/dL (75-99)
[2021-10-22] MEDS ORDERED: CALCIUM GLUCONATE 2 GM in SODIUM CHLORIDE 0.9% 100 ML IVPB ONE (15:45)
[2021-10-22] MEDS ORDERED: POTASSIUM BICARBONATE/CIT AC 20 MEQ TABLET.EFF OG-TUBE ONE (15:45)
[2021-10-22 15:49] LABS: Glucose,Whole Blood 132 mg/dL (75-99)
[2021-10-22] MEDS: MAGNESIUM SULFATE-D5W PMX 1 GM in DEXTROSE/WATER 1 100ML.BAG IVPB SCH ×2 (15:52→17:23)
[2021-10-22] MEDS ORDERED: IPRATROPIUM-ALBUTEROL 3 ML NEB INHALATION SCH (16:00)
[2021-10-22 16:28] LABS: Basophils % (A) 0 %; Eosinophils # (A) 0.1 k/uL (0-0.7); Eosinophils % (A) 1 %; HCT 28.4 % (39.0-53.0); HGB 9.8 gm/dL (13.0-17.5); Lymphocytes # (A) 0.8 k/uL (1.0-4.8); Lymphocytes % (A) 16 %; MCH 32.5 pg (25.0-35.0); MCHC 34.4 g/dL (31.0-37.0); MCV 94.7 fL (80.0-100.0); Mean Platelet Volume 7.9; Monocytes # (A) 0.2 k/uL (0-1.0); Monocytes % (A) 3 %; Neutrophils # (A) 4.2 k/uL (1.3-7.7); Neutrophils % (A) 78 %; RDW 15.2 % (11.5-15.5); WBC 5.4 k/uL (3.8-10.6)
[2021-10-22] MEDS: HEPARIN SODIUM,PORCINE/PF 5,000 UNIT/0.5 ML SYRINGE SQ SCH ×2 (16:43→23:54)
[2021-10-22 17:04] LABS: Glucose,Whole Blood 157 mg/dL (75-99)
[2021-10-22 17:13] LABS: Platelet Count 85 k/uL (150-450)
[2021-10-22] MEDS: ACETAMINOPHEN IV (For NPO) 1,000 MG in EMPTY BAG 1 BAG IVPB SCH ×2 (17:37→23:54)
[2021-10-22 18:03] LABS: Glucose,Whole Blood 169 mg/dL (75-99)
[2021-10-22 18:05] LABS: ABG Base Excess -1.2 mmol/L; ABG HCO3 25 mmol/L (21-25); ABG Oxygen Saturation 98.5 % (94-97); ABG PCO2 45 mmHg (35-45); ABG PH 7.35 (7.35-7.45); ABG PO2 127 mmHg (83-108); ABG TCO2 26 mmol/L (19-24)
[2021-10-22 18:06] LABS: Allen Test Performed? no
[2021-10-22 19:05] LABS: Glucose,Whole Blood 156 mg/dL (75-99)
[2021-10-22] MEDS: IPRATROPIUM-ALBUTEROL 3 ML NEB INHALATION SCH (19:25)
[2021-10-22 19:43] LABS: Basophils % (A) 0 %; Eosinophils % (A) 0 %; HCT 29.9 % (39.0-53.0); HGB 9.9 gm/dL (13.0-17.5); Lymphocytes # (A) 0.3 k/uL (1.0-4.8); Lymphocytes % (A) 6 %; MCH 31.6 pg (25.0-35.0); MCHC 33.2 g/dL (31.0-37.0); MCV 95.2 fL (80.0-100.0); Mean Platelet Volume 7.2; Monocytes # (A) 0.2 k/uL (0-1.0); Monocytes % (A) 4 %; Neutrophils # (A) 4.5 k/uL (1.3-7.7); Neutrophils % (A) 88 %; RBC 3.14 m/uL (4.30-5.90); RDW 15.3 % (11.5-15.5); WBC 5.1 k/uL (3.8-10.6)
[2021-10-22 19:47] LABS: Platelet Count 88 k/uL (150-450)
[2021-10-22 20:04] LABS: Glucose,Whole Blood 141 mg/dL (75-99)
[2021-10-22 20:56] LABS: Glucose,Whole Blood 137 mg/dL (75-99)
[2021-10-22 21:57] LABS: Glucose,Whole Blood 126 mg/dL (75-99)
[2021-10-22 23:14] LABS: Glucose,Whole Blood 116 mg/dL (75-99)
[2021-10-23 00:13] LABS: Glucose,Whole Blood 121 mg/dL (75-99)
[2021-10-23 01:02] LABS: Glucose,Whole Blood 127 mg/dL (75-99)
[2021-10-23 02:00] LABS: Glucose,Whole Blood 117 mg/dL (75-99)
[2021-10-23 03:04] LABS: Glucose,Whole Blood 113 mg/dL (75-99)
[2021-10-23 03:59] LABS: Glucose,Whole Blood 125 mg/dL (75-99)
[2021-10-23 04:17] LABS: Basophils % (A) 0 %; Eosinophils % (A) 0 %; HCT 30.6 % (39.0-53.0); HGB 10.8 gm/dL (13.0-17.5); Lymphocytes # (A) 0.8 k/uL (1.0-4.8); Lymphocytes % (A) 11 %; MCH 33.5 pg (25.0-35.0); MCHC 35.4 g/dL (31.0-37.0); MCV 94.5 fL (80.0-100.0); Mean Platelet Volume 8.3; Monocytes # (A) 0.4 k/uL (0-1.0); Monocytes % (A) 5 %; Neutrophils # (A) 5.8 k/uL (1.3-7.7); Neutrophils % (A) 83 %; Platelet Count 110 k/uL (150-450); RBC 3.24 m/uL (4.30-5.90); RDW 14.8 % (11.5-15.5); WBC 6.9 k/uL (3.8-10.6)
[2021-10-23 04:36] LABS: Ionized Calcium 4.8 mg/dL (4.5-5.3)
[2021-10-23 04:46] LABS: Potassium 4.2 mmol/L (3.5-5.1)
[2021-10-23 04:47] LABS: ALT 40 U/L (4-49); AST 45 U/L (17-59); African American GFR (CKD) >90 (>60 ml/min/1.73 sqM); Albumin 3.4 g/dL (3.5-5.0); Alkaline Phosphatase 44 U/L (38-126); Anion Gap 5 mmol/L; Blood Urea Nitrogen 12 mg/dL (9-20); Calcium 8.4 mg/dL (8.4-10.2); Carbon Dioxide 23 mmol/L (22-30); Chloride 106 mmol/L (98-107); Glucose 116 mg/dL (74-99); Magnesium 1.7 mg/dL (1.6-2.3); Non-African American GFR(CKD) >90 (>60 ml/min/1.73 sqM); Sodium 134 mmol/L (137-145); Total Bilirubin 1.9 mg/dL (0.2-1.3)
[2021-10-23 05:03] LABS: Glucose,Whole Blood 125 mg/dL (75-99)
[2021-10-23] MEDS: MAGNESIUM SULFATE-D5W PMX 1 GM in DEXTROSE/WATER 1 100ML.BAG IVPB SCH ×2 (05:13→06:30)
[2021-10-23] MEDS: HYDROcodone/APAP 5-325MG 1 EACH TAB PO PRN ×3 (05:18→20:10)
[2021-10-23] MEDS: ALBUMIN HUMAN 5% 250 ML in EMPTY BAG 1 BAG IVPB PRN ×6 (06:07→10:55)
[2021-10-23 07:11] LABS: Glucose,Whole Blood 136 mg/dL (75-99)
[2021-10-23] MEDS: IPRATROPIUM-ALBUTEROL 3 ML NEB INHALATION SCH ×4 (07:36→19:51)
[2021-10-23] MEDS ORDERED: KETOROLAC 30 MG/ML 1 ML VIAL IVP STA (07:48)
[2021-10-23 08:16] LABS: Glucose,Whole Blood 134 mg/dL (75-99)
[2021-10-23] MEDS: ASPIRIN 325 MG TAB PO SCH (08:57)
[2021-10-23] MEDS: ATORVASTATIN 40 MG TAB PO SCH (08:57)
[2021-10-23] MEDS: CLOPIDOGREL 75 MG TAB PO SCH (08:57)
[2021-10-23] MEDS: HEPARIN SODIUM,PORCINE/PF 5,000 UNIT/0.5 ML SYRINGE SQ SCH ×2 (08:57→17:03)
[2021-10-23] MEDS: PANTOPRAZOLE 40 MG/10 ML VIAL IVP SCH (08:57)
--- NOTE | 2021-10-23 08:59 | XR ---
EXAMINATION TYPE: XR chest 1V portable DATE OF EXAM: 10/23/2021 COMPARISON: X-ray dated 10/22/2021 HISTORY: Follow-up TECHNIQUE: Single frontal view of the chest is obtained. FINDINGS: Interval removal of the NG tube and endotracheal tube. Unchanged position of the mediastinal drains, left intercostal drainage tube and the right sided internal jugular [place] catheter. Left lower lung zone atelectasis/consolidation, slightly more prominent today, attention on follow-up with a smaller one in the right lung base. The previously described questionable minimal left pneumo thorax is hardly appreciated today. Transverse opacity superimposed on the right upper to midlung zones, incompletely characterized and c ould be related to patient's clothing, attention follow-up. IMPRESSION: Interval changes as described above.
[2021-10-23] MEDS ORDERED: MAGNESIUM HYDROXIDE 2,400 MG/10 ML CUP PO PRN (09:00)
[2021-10-23] MEDS: NOREPINEPHRINE 4 MG in SODIUM CHLORIDE 0.9% 250 ML IV SCH (09:00)
[2021-10-23] MEDS ORDERED: METOPROLOL TARTRATE 12.5 MG TAB PO SCH ×2 (09:00→21:00)
[2021-10-23] MEDS ORDERED: bisacodyL 10 MG SUPP RECTAL PRN (09:00)
--- NOTE | 2021-10-23 09:00 | PN ---
PROGRESS NOTE Mr. Murphy underwent aortocoronary bypass surgery yesterday that was performed by Dr. Breen. He had off-pump bypass with a left internal mammary artery graft to the LAD and vein graft to the PDA branch of RCA. Post procedure he is doing well. He is on a small dose of Levophed. He also is receiving some Valium. Blood pressure was somewhat low after they had him up. However, he is in sinus rhythm, clinically doing well, extubated. Blood pressure is 90/60, receiving some volume. Heart rate is about 70 per minute. S1-S2 heard normally. There is a soft pericardial rub audible. Lungs reveal bilateral air entry diminished. Abdomen is soft. Lower extremity exam revealed diminished pulses. Central nervous system: No focal deficits. IMPRESSION: 1. Status post aortocoronary bypass surgery in a patient with significant triple- vessel disease. 2. History of hypercholesterolemia and ischemic cardiomyopathy with an estimated ejection fraction prior to catheterization of about 35% with multiple wall motion abnormalities. RECOMMENDATIONS: I would recommend that we continue current supportive care with volume and a small dose of norepinephrine which can be weaned off soon hopefully. We will continue with incentive spirometry and pulmonary toilet. Prognosis remains guarded. MMODL / IJN: [id number] /
--- NOTE | 2021-10-23 09:03 | P.PN ---
<Pattie Mitchell M - Last Filed: 10/23/21 08:51> Subjective Progress Note Date: 10/23/21 This is a 71-year-old white male patient of Dr. Marty Pal with past history of chronic and ongoing tobacco dependence, patient carries over [id number] smoking history, daily marijuana use, family history of heart failure, and diab etes mellitus. Patient is not on any home medications. He presented to the emergency department on 10/17/2021 when he was awoken out of his sleep at 4:00 in the morning with chest pain radiating to his left arm. Patient was not complaining of any shortness of breath, his chest pain she described as dull and achy with pressure on the left side. There was associated with some nausea and sweating. His EKG shows sinus rhythm with a rate of 68 BPM with no significant ST or T-wave changes. His chest x-ray was negative for any acute process. His troponins were 0.026, 1.440, 2.450, 0.601. The rest of his blood work has been reviewed showing CBC within normal limits, electrolytes and renal profile were unremarkable, LFTs were unremarkable, his lipid profile was unremarkable with the exception of HDL which was 37.6. Urinalysis showed 1+ glucose, and the rest was within normal limits, COVID-19 PCR was negative. Patient had a cardiac catheterization and was found to have severe triple-vessel disease with subtotal 99% LAD stenosis extending to the ostium and followed by an aneurysm formation, total occlusion of the first diagonal, 70% stenosis of the circumflex, critical lesion proximally in the RCA and total occlusion in the midportion with collateral flow. Patient was referred to CT surgery for evaluation for possibility of coronary artery bypass grafting surgery. On 10/20/2021 patient seen in follow-up on selective care unit, she is resting comfortably in bed, has had no episodes of chest pain overnight, he remains on heparin infusion. Lung sounds are clear to auscultation, no dyspnea, no cough, no fever or chills, no complaints of chest discomfort. Preop FEV1 was 65% of predicted. Patient was evaluated by CT surgery, and the plan is to proceed with off-pump myocardial revascularization ANGELES, endovascular vein harvest, and left atrial appendage ligation on on 2021. On 10/21/2021 patient seen in follow-up on selective care unit, he had an uneventful night, breathing comfortably, no complaints of chest pain, tolerating ambulation in the hallway, room air pulse ox is 95%, he is achieving 3116-5237 mL on the incentive spirometer, no fever or chills, no compressive chest discomfort, no coughing or wheezing. Today's labs have been reviewed, CBC is unremarkable, electrodes renal profile are within normal limits. Patient was reevaluated today on 10/18/2021, patient is status post 2 vessel bypass surgery, off pump, patient is now in the ICU intubated and mechanically ventilated. Patient is on tidal volume of 550 assist-control rate of 14 FiO2 100% PEEP of 5. Patient is requiring norepinephrine at 0.03 mcg/kg/m, patient is on nitroglycerin drip at 5 mcg/m, is also on propofol at 20 mcg/kg/m. His cardiac output is 3.5, cardiac index is 1.8, patient is sedated, and he has a mediastinal chest tube in the left pleural chest tube in place. No significant bleeding is noted. ABG today showed a pO2 of more than 400 pCO2 of 46 pH of 7.33, rate was increased from 14-16, FiO2 cut down to 45%. Chest x-ray showed adequate placement of the endotracheal tube, and adequate placement of the different chest tubes, no acute process is noted. On 10/23/2021 patient seen in follow-up in the intensive care unit. Today is postoperative day #1, status post off-pump two-vessel coronary artery bypass grafting surgery, endoscopic left greater saphenous vein harvest, left atrial appendage ligation. Patient was successfully weaned and extubated within just under 5 hours from OR exit time. Postoperatively patient had hypotension, patient received fluid resuscitation, and he has received 1.5 L and 5% albumin preoperatively, 1 L of albumin postoperatively, and 750 ML of 5% albumin this morning. No significant bleeding out of the chest tubes. Patient is currently sitting up in a chair, breathing fairly comfortably, he is having some posto perative pain which is currently better controlled with medications. He is on 4 L per nasal cannula and his pulse ox is 95%. His chest x-ray today shows post thoracotomy changes, left chest tube in place with the possibility of a tiny 4 mm left apical pneumothorax, some patchy interstitial changes in the lower lungs that could relate to atelectasis or pulmonary vascular congestion. Patient is u sing incentive spirometer, achieving 750 on it today. Patient is currently on lactated Ringer's at 50 ML per hour, norepinephrine at 0.02 mics per kilo per minute. Insulin infusion is at 2 units per hour. Nitroglycerin drip is currently off, patient is in sinus mechanism with a rate of 86 BPM, V wires are in place, with VVI backup of 50 BPM. Currently blood pressure is 87/38, PA pressure is 22/8, cardiac output is 6.9 and index is 3.5. Sternal incision is clean dry and intact, 2 mediastinal chest tubes are connected to the Pleur-evac with 650 ML sanguineous output since surgery, left pleural chest tube was 350 ML of sanguinous output since surgery. urine output is 35-45 ML per hour this morning. This morning's labs have been reviewed, white blood cell count is 6.9, hemoglobin is 10.8, platelet count is 110, serum sodium is 134, the rest of electrolytes and renal profile were unremarkable, LFTs were within normal limits. Objective - Vital Signs Vital signs: Vital Signs Temp 99.7 F H 10/23/21 08:00 Pulse 88 10/23/21 08:00 Resp 7 L 10/23/21 08:00 BP 98/54 10/23/21 08:00 Pulse Ox 96 10/23/21 08:00 Intake & Output 10/22/21 10/23/21 10/23/21 18:59 06:59 18:59 Intake Total 6449.753 0650.125 693.396 Output Total 3920 1780 100 Balance -1959.540 -20.875 593.396 Weight 80.8 kg Intake: IV 53 1335.5 459.5 Acetominophen 100 Albumin 250 250 CO/CI 270 40 Kefzol 50 50 LR @50mls/hr 550 100 Nitro 16.5 1.5 Pressure Bag 99 18 Intake, IV Titration 1847.460 183.625 233.896 Amount ACETAMINOPHEN IV (For NPO 100 ) 1,000 mg In Empty Bag 1 bag @ 400 mls/hr IVPB Q6HR [facility] Rx#:[id number] Albumin Human 5% 250 ml 1000 In Empty Bag 1 bag @ 250 mls/hr IVPB Q1HR PRN Rx#: [id number] Calcium Gluconate 2 gm In 100 Sodium Chloride 0.9% 100 ml @ 100 mls/hr IVPB ONCE ONE Rx#:[id number] Insulin Regular 100 unit 3.425 22.313 In Sodium Chloride 0.9% 100 ml @ Per Protocol IV .Q0M [facility] Rx#:[id number] Lactated Ringers 1,000 ml 250 50 @ 50 mls/hr IV .Q20H [facility] Rx#:[id number] Magnesium Sulfate-D5w Pmx 200 1 gm In Dextrose/Water 1 100ml.bag @ 100 mls/hr IVPB Q1H [facility] Rx#: [id number] Magnesium Sulfate-D5w Pmx 100 100 1 gm In Dextrose/Water 1 100ml.bag @ 100 mls/hr IVPB Q1H [facility] Rx#: [id number] Nitroglycerin-D5w Pmx 50 7.5 1.5 25.325 mg In Dextrose/Water 1 250ml.bag @ 5 MCG/MIN 1.5 mls/hr IV .Q24H [facility] Rx#: [id number] Norepinephrine 4 mg In 67.908 9.812 108.571 Sodium Chloride 0.9% 250 ml @ 0.05 MCG/KG/MIN 14. 573 mls/hr IV .[id number] [facility] Rx#:[id number] Norepinephrine 4 mg In 17.0 Sodium Chloride 0.9% 250 ml @ Titrate IV .Q0M [facility] Rx#:[id number] ceFAZolin 2 gm In Sodium 50 Chloride 0.9% 50 ml @ 100 mls/hr IVPB Q8HR [facility] Rx# :[id number] propofoL 1,000 mg In 51.627 Empty Bag 1 bag @ Titrate IV .Q0M [facility] Rx#: [id number] Oral 240 Other 60 Output: Chest Tube Drainage 620 330 20 lt pleural 280 40 0 ms x2 340 290 20 Urine 1300 1450 80 Estimated Blood Loss 2000 Other: Voiding Method Indwelling Catheter Indwelling Catheter ABP, PAP, CO, CI - Last Documented Arterial Blood Pressure 116/42 Pulmonary Artery Pressure 27/9 Cardiac Output 6.9 Cardiac Index 3.5 - Exam GENERAL EXAM: Alert, pleasant, 71-year-old white male on 4 l/min with a pulse ox of 94% comfortable in no apparent distress. HEAD: Normocephalic/atraumatic. EYES: Normal reaction of pupils, equal size. Conjunctiva pink, sclera white. NOSE: Clear with pink turbinates. right IJ cordis with swan gretchen catheter in place THROAT: No erythema or exudates. NECK: No masses, no JVD, no thyroid enlargement, no adenopathy. CHEST: No chest wall deformity. Symmetrical expansion. midsternal incision is clean dry and intact, 2 mediastinal and 1 left pleural chest tubes in place to pleuravac, MS chest tube pleuravac has 650 ml of sanguineous output and left pleural chest tube has 350 of sanguineous output. Ventricular wires in place connected to the external pacemaker at 50 VVI back up, intrinsic rhythm is Sinus rhythm at 86 bpm LUNGS: Equal air entry with no crackles, wheeze, rhonchi or dullness. CVS: Regular rate and rhythm, normal S1 and S2, no gallops, no murmurs, no rubs ABDOMEN: Soft, nontender. No hepatosplenomegaly, normal bowel sounds, no guarding or rigidity. EXTREMITIES: No clubbing, no edema, no cyanosis, 2+ pulses and upper and lower extremities. Left inner thigh interrupted incision is clean dry and intact, covered with a dressing MUSCULOSKELETAL: Muscle strength and tone normal. SPINE: No scoliosis or deformity SKIN: No rashes CENTRAL NERVOUS SYSTEM: Alert and oriented -3. No focal deficits, tone is normal in all 4 extremities. PSYCHIATRIC: Alert and oriented -3. Appropriate affect. Intact judgment and insight. - Labs CBC & Chem 7: 10/23/21 04:00 10/23/21 04:00 Labs: Abnormal Lab Results - Last 24 Hours (Table) 10/21/21 10/22/21 10/22/21 Range/Units 08:22 08:29 09:54 RBC (4.30-5.90) m/uL Hgb (13.0-17.5) gm/dL Hct (39.0-53.0) % Plt Count (150-450) k/uL Lymphocytes # (1.0-4.8) k/uL PT (9.0-12.0) sec INR (<1.2) APTT (22.0-30.0) sec ABG pH 7.24 L (7.35-7.45) ABG pCO2 58 H (35-45) mmHg ABG pO2 215 H 197 H (83-108) mmHg ABG HCO3 (21-25) mmol/L ABG Total CO2 26 H 27 H (19-24) mmol/L ABG O2 Saturation 99.7 H 99.3 H (94-97) % ABG Hematocrit (34.0-46.0) % ABG Ionized Calcium (4.5-5.3) mg/dL ABG Glucose 112 H (75-99) mg/dL Hemoglobin 11.2 L (13.0-17.5) gm/dL Sodium (137-145) mmol/L Chloride (98-107) mmol/L Creatinine (0.66-1.25) mg/dL Glucose (74-99) mg/dL POC Glucose (mg/dL) (75-99) mg/dL Calcium (8.4-10.2) mg/dL Total Bilirubin (0.2-1.3) mg/dL Alkaline Phosphatase (38-126) U/L Total Protein (6.3-8.2) g/dL Albumin (3.5-5.0) g/dL Arterial Blood Glucose 112 H (75-99) mg/dL Crossmatch See Detail 10/22/21 10/22/21 10/22/21 Range/Units 10:25 11:00 11:41 RBC (4.30-5.90) m/uL Hgb (13.0-17.5) gm/dL Hct (39.0-53.0) % Plt Count (150-450) k/uL Lymphocytes # (1.0-4.8) k/uL PT (9.0-12.0) sec INR (<1.2) APTT (22.0-30.0) sec ABG pH 7.33 L (7.35-7.45) ABG pCO2 50 H 46 H (35-45) mmHg ABG pO2 176 H 207 H 224 H (83-108) mmHg ABG HCO3 26 H 26 H (21-25) mmol/L ABG Total CO2 28 H 27 H 27 H (19-24) mmol/L ABG O2 Saturation 99.3 H 99.5 H 99.6 H (94-97) % ABG Hematocrit 31 L 29 L 30 L (34.0-46.0) % ABG Ionized Calcium 4.3 L (4.5-5.3) mg/dL ABG Glucose 123 H 124 H 120 H (75-99) mg/dL Hemoglobin 10.2 L 9.5 L 9.7 L (13.0-17.5) gm/dL Sodium (137-145) mmol/L Chloride (98-107) mmol/L Creatinine (0.66-1.25) mg/dL Glucose (74-99) mg/dL POC Glucose (mg/dL) (75-99) mg/dL Calcium (8.4-10.2) mg/dL Total Bilirubin (0.2-1.3) mg/dL Alkaline Phosphatase (38-126) U/L Total Protein (6.3-8.2) g/dL Albumin (3.5-5.0) g/dL Arterial Blood Glucose 123 H 124 H 120 H (75-99) mg/dL Crossmatch 10/22/21 10/22/21 10/22/21 Range/Units 12:54 13:40 13:40 RBC 3.29 L (4.30-5.90) m/uL Hgb 10.7 L D (13.0-17.5) gm/dL Hct 31.3 L (39.0-53.0) % Plt Count 100 L (150-450) k/uL Lymphocytes # (1.0-4.8) k/uL PT (9.0-12.0) sec INR (<1.2) APTT (22.0-30.0) sec ABG pH 7.34 L (7.35-7.45) ABG pCO2 47 H (35-45) mmHg ABG pO2 174 H (83-108) mmHg ABG HCO3 (21-25) mmol/L ABG Total CO2 27 H (19-24) mmol/L ABG O2 Saturation 99.2 H (94-97) % ABG Hematocrit (34.0-46.0) % ABG Ionized Calcium 5.5 H (4.5-5.3) mg/dL ABG Glucose 117 H (75-99) mg/dL Hemoglobin 11.2 L (13.0-17.5) gm/dL Sodium (137-145) mmol/L Chloride (98-107) mmol/L Creatinine (0.66-1.25) mg/dL Glucose (74-99) mg/dL POC Glucose (mg/dL) 109 H (75-99) mg/dL Calcium (8.4-10.2) mg/dL Total Bilirubin (0.2-1.3) mg/dL Alkaline Phosphatase (38-126) U/L Total Protein (6.3-8.2) g/dL Albumin (3.5-5.0) g/dL Arterial Blood Glucose 117 H (75-99) mg/dL Crossmatch 10/22/21 10/22/21 10/22/21 Range/Units 13:40 13:40 14:09 RBC (4.30-5.90) m/uL Hgb (13.0-17.5) gm/dL Hct (39.0-53.0) % Plt Count (150-450) k/uL Lymphocytes # (1.0-4.8) k/uL PT 13.0 H (9.0-12.0) sec INR 1.2 H (<1.2) APTT 35.0 H (22.0-30.0) sec ABG pH 7.33 L (7.35-7.45) ABG pCO2 46 H (35-45) mmHg ABG pO2 >400 H (83-108) mmHg ABG HCO3 (21-25) mmol/L ABG Total CO2 26 H (19-24) mmol/L ABG O2 Saturation 99.5 H (94-97) % ABG Hematocrit (34.0-46.0) % ABG Ionized Calcium (4.5-5.3) mg/dL ABG Glucose (75-99) mg/dL Hemoglobin (13.0-17.5) gm/dL Sodium (137-145) mmol/L Chloride 111 H (98-107) mmol/L Creatinine 0.58 L (0.66-1.25) mg/dL Glucose 108 H (74-99) mg/dL POC Glucose (mg/dL) (75-99) mg/dL Calcium 7.9 L (8.4-10.2) mg/dL Total Bilirubin (0.2-1.3) mg/dL Alkaline Phosphatase 35 L (38-126) U/L Total Protein 4.2 L (6.3-8.2) g/dL Albumin 2.7 L (3.5-5.0) g/dL Arterial Blood Glucose (75-99) mg/dL Crossmatch 10/22/21 10/22/21 10/22/21 Range/Units 14:44 15:45 15:47 RBC 3.00 L (4.30-5.90) m/uL Hgb 9.8 L (13.0-17.5) gm/dL Hct 28.4 L (39.0-53.0) % Plt Count 85 L (150-450) k/uL Lymphocytes # 0.8 L (1.0-4.8) k/uL PT (9.0-12.0) sec INR (<1.2) APTT (22.0-30.0) sec ABG pH (7.35-7.45) ABG pCO2 (35-45) mmHg ABG pO2 (83-108) mmHg ABG HCO3 (21-25) mmol/L ABG Total CO2 (19-24) mmol/L ABG O2 Saturation (94-97) % ABG Hematocrit (34.0-46.0) % ABG Ionized Calcium (4.5-5.3) mg/dL ABG Glucose (75-99) mg/dL Hemoglobin (13.0-17.5) gm/dL Sodium (137-145) mmol/L Chloride (98-107) mmol/L Creatinine (0.66-1.25) mg/dL Glucose (74-99) mg/dL POC Glucose (mg/dL) 122 H 132 H (75-99) mg/dL Calcium (8.4-10.2) mg/dL Total Bilirubin (0.2-1.3) mg/dL Alkaline Phosphatase (38-126) U/L Total Protein (6.3-8.2) g/dL Albumin (3.5-5.0) g/dL Arterial Blood Glucose (75-99) mg/dL Crossmatch 10/22/21 10/22/21 10/22/21 Range/Units 17:02 18:02 18:03 RBC (4.30-5.90) m/uL Hgb (13.0-17.5) gm/dL Hct (39.0-53.0) % Plt Count (150-450) k/uL Lymphocytes # (1.0-4.8) k/uL PT (9.0-12.0) sec INR (<1.2) APTT (22.0-30.0) sec ABG pH (7.35-7.45) ABG pCO2 (35-45) mmHg ABG pO2 127 H (83-108) mmHg ABG HCO3 (21-25) mmol/L ABG Total CO2 26 H (19-24) mmol/L ABG O2 Saturation 98.5 H (94-97) % ABG Hematocrit (34.0-46.0) % ABG Ionized Calcium (4.5-5.3) mg/dL ABG Glucose (75-99) mg/dL Hemoglobin (13.0-17.5) gm/dL Sodium (137-145) mmol/L Chloride (98-107) mmol/L Creatinine (0.66-1.25) mg/dL Glucose (74-99) mg/dL POC Glucose (mg/dL) 157 H 169 H (75-99) mg/dL Calcium (8.4-10.2) mg/dL Total Bilirubin (0.2-1.3) mg/dL Alkaline Phosphatase (38-126) U/L Total Protein (6.3-8.2) g/dL Albumin (3.5-5.0) g/dL Arterial Blood Glucose (75-99) mg/dL Crossmatch 10/22/21 10/22/21 10/22/21 Range/Units 19:00 19:04 19:55 RBC 3.14 L (4.30-5.90) m/uL Hgb 9.9 L (13.0-17.5) gm/dL Hct 29.9 L (39.0-53.0) % Plt Count 88 L (150-450) k/uL Lymphocytes # 0.3 L (1.0-4.8) k/uL PT (9.0-12.0) sec INR (<1.2) APTT (22.0-30.0) sec ABG pH (7.35-7.45) ABG pCO2 (35-45) mmHg ABG pO2 (83-108) mmHg ABG HCO3 (21-25) mmol/L ABG Total CO2 (19-24) mmol/L ABG O2 Saturation (94-97) % ABG Hematocrit (34.0-46.0) % ABG Ionized Calcium (4.5-5.3) mg/dL ABG Glucose (75-99) mg/dL Hemoglobin (13.0-17.5) gm/dL Sodium (137-145) mmol/L Chloride (98-107) mmol/L Creatinine (0.66-1.25) mg/dL Glucose (74-99) mg/dL POC Glucose (mg/dL) 156 H 141 H (75-99) mg/dL Calcium (8.4-10.2) mg/dL Total Bilirubin (0.2-1.3) mg/dL Alkaline Phosphatase (38-126) U/L Total Protein (6.3-8.2) g/dL Albumin (3.5-5.0) g/dL Arterial Blood Glucose (75-99) mg/dL Crossmatch 10/22/21 10/22/21 10/22/21 Range/Units 20:52 21:52 23:01 RBC (4.30-5.90) m/uL Hgb (13.0-17.5) gm/dL Hct (39.0-53.0) % Plt Count (150-450) k/uL Lymphocytes # (1.0-4.8) k/uL PT (9.0-12.0) sec INR (<1.2) APTT (22.0-30.0) sec ABG pH (7.35-7.45) ABG pCO2 (35-45) mmHg ABG pO2 (83-108) mmHg ABG HCO3 (21-25) mmol/L ABG Total CO2 (19-24) mmol/L ABG O2 Saturation (94-97) % ABG Hematocrit (34.0-46.0) % ABG Ionized Calcium (4.5-5.3) mg/dL ABG Glucose (75-99) mg/dL Hemoglobin (13.0-17.5) gm/dL Sodium (137-145) mmol/L Chloride (98-107) mmol/L Creatinine (0.66-1.25) mg/dL Glucose (74-99) mg/dL POC Glucose (mg/dL) 137 H 126 H 116 H (75-99) mg/dL Calcium (8.4-10.2) mg/dL Total Bilirubin (0.2-1.3) mg/dL Alkaline Phosphatase (38-126) U/L Total Protein (6.3-8.2) g/dL Albumin (3.5-5.0) g/dL Arterial Blood Glucose (75-99) mg/dL Crossmatch 10/23/21 10/23/21 10/23/21 Range/Units 00:12 01:00 01:59 RBC (4.30-5.90) m/uL Hgb (13.0-17.5) gm/dL Hct (39.0-53.0) % Plt Count (150-450) k/uL Lymphocytes # (1.0-4.8) k/uL PT (9.0-12.0) sec INR (<1.2) APTT (22.0-30.0) sec ABG pH (7.35-7.45) ABG pCO2 (35-45) mmHg ABG pO2 (83-108) mmHg ABG HCO3 (21-25) mmol/L ABG Total CO2 (19-24) mmol/L ABG O2 Saturation (94-97) % ABG Hematocrit (34.0-46.0) % ABG Ionized Calcium (4.5-5.3) mg/dL ABG Glucose (75-99) mg/dL Hemoglobin (13.0-17.5) gm/dL Sodium (137-145) mmol/L Chloride (98-107) mmol/L Creatinine (0.66-1.25) mg/dL Glucose (74-99) mg/dL POC Glucose (mg/dL) 121 H 127 H 117 H (75-99) mg/dL Calcium (8.4-10.2) mg/dL Total Bilirubin (0.2-1.3) mg/dL Alkaline Phosphatase (38-126) U/L Total Protein (6.3-8.2) g/dL Albumin (3.5-5.0) g/dL Arterial Blood Glucose (75-99) mg/dL Crossmatch 10/23/21 10/23/21 10/23/21 Range/Units 03:03 03:57 04:00 RBC 3.24 L (4.30-5.90) m/uL Hgb 10.8 L (13.0-17.5) gm/dL Hct 30.6 L (39.0-53.0) % Plt Count 110 L (150-450) k/uL Lymphocytes # 0.8 L (1.0-4.8) k/uL PT (9.0-12.0) sec INR (<1.2) APTT (22.0-30.0) sec ABG pH (7.35-7.45) ABG pCO2 (35-45) mmHg ABG pO2 (83-108) mmHg ABG HCO3 (21-25) mmol/L ABG Total CO2 (19-24) mmol/L ABG O2 Saturation (94-97) % ABG Hematocrit (34.0-46.0) % ABG Ionized Calcium (4.5-5.3) mg/dL ABG Glucose (75-99) mg/dL Hemoglobin (13.0-17.5) gm/dL Sodium (137-145) mmol/L Chloride (98-107) mmol/L Creatinine (0.66-1.25) mg/dL Glucose (74-99) mg/dL POC Glucose (mg/dL) 113 H 125 H (75-99) mg/dL Calcium (8.4-10.2) mg/dL Total Bilirubin (0.2-1.3) mg/dL Alkaline Phosphatase (38-126) U/L Total Protein (6.3-8.2) g/dL Albumin (3.5-5.0) g/dL Arterial Blood Glucose (75-99) mg/dL Crossmatch 10/23/21 10/23/21 10/23/21 Range/Units 04:00 05:01 06:58 RBC (4.30-5.90) m/uL Hgb (13.0-17.5) gm/dL Hct (39.0-53.0) % Plt Count (150-450) k/uL Lymphocytes # (1.0-4.8) k/uL PT (9.0-12.0) sec INR (<1.2) APTT (22.0-30.0) sec ABG pH (7.35-7.45) ABG pCO2 (35-45) mmHg ABG pO2 (83-108) mmHg ABG HCO3 (21-25) mmol/L ABG Total CO2 (19-24) mmol/L ABG O2 Saturation (94-97) % ABG Hematocrit (34.0-46.0) % ABG Ionized Calcium (4.5-5.3) mg/dL ABG Glucose (75-99) mg/dL Hemoglobin (13.0-17.5) gm/dL Sodium 134 L (137-145) mmol/L Chloride (98-107) mmol/L Creatinine 0.57 L (0.66-1.25) mg/dL Glucose 116 H (74-99) mg/dL POC Glucose (mg/dL) 125 H 136 H (75-99) mg/dL Calcium (8.4-10.2) mg/dL Total Bilirubin 1.9 H (0.2-1.3) mg/dL Alkaline Phosphatase (38-126) U/L Total Protein 5.0 L (6.3-8.2) g/dL Albumin 3.4 L (3.5-5.0) g/dL Arterial Blood Glucose (75-99) mg/dL Crossmatch 10/23/21 Range/Units 08:15 RBC (4.30-5.90) m/uL Hgb (13.0-17.5) gm/dL Hct (39.0-53.0) % Plt Count (150-450) k/uL Lymphocytes # (1.0-4.8) k/uL PT (9.0-12.0) sec INR (<1.2) APTT (22.0-30.0) sec ABG pH (7.35-7.45) ABG pCO2 (35-45) mmHg ABG pO2 (83-108) mmHg ABG HCO3 (21-25) mmol/L ABG Total CO2 (19-24) mmol/L ABG O2 Saturation (94-97) % ABG Hematocrit (34.0-46.0) % ABG Ionized Calcium (4.5-5.3) mg/dL ABG Glucose (75-99) mg/dL Hemoglobin (13.0-17.5) gm/dL Sodium (137-145) mmol/L Chloride (98-107) mmol/L Creatinine (0.66-1.25) mg/dL Glucose (74-99) mg/dL POC Glucose (mg/dL) 134 H (75-99) mg/dL Calcium (8.4-10.2) mg/dL Total Bilirubin (0.2-1.3) mg/dL Alkaline Phosphatase (38-126) U/L Total Protein (6.3-8.2) g/dL Albumin (3.5-5.0) g/dL Arterial Blood Glucose (75-99) mg/dL Crossmatch Microbiology - Last 24 Hours (Table) 10/21/21 16:03 Nasal Screen MRSA/MSSA - Final Nasal Swab Assessment and Plan Plan: Assessment: #1. Multivessel coronary artery disease, with severe triple-vessel disease with subtotal 99% LAD stenosis, 100% occlusion of the first diagonal, 70% occlusion o f the circumflex, critical stenosis of the RCA proximally and total occlusion in the midportion, with collateral flow. S/P Off pump 2 vessel CABG with ANGELES to the LAD, SVG to the PDA, endoscopic greater saphenous vein harvest, and left atrial exclusion on 10/22/2021 #2. Acute non-ST elevated myocardial infarction #3. Routine post-operative ventilator management, patient successfully weaned and extubated on post-op day 0 within 5 hours of OR exit time #4. Post-op hypotension, likely hypovolemic, currently on small dose of norepinephrine #5. Chronic and ongoing history of smoking, carries [id number] smoking history, preop FEV1 was 65% of predicted #6. Daily marijuana smoker #7. Ischemic cardiomyopathy with EF of 30-35% Plan: Patient successfully weaned and extubated on post-op day 0 Encourage deep breathing and coughing Maintain pain control Close hemodynamic monitoring, monitor chest tube output, urine output no significant bleeding from the chest tubes Doing well, up in chair GI/DVT prophylaxis per CT surgery Will follow his course closely in the intensive care unit I performed a history & physical examination of the patient and discussed their management with my nurse practitioner, Pattie Mitchell. I reviewed the nurse practitioner's note and agree with the documented findings and plan of care. Lung sounds are positive for clear breath sounds throughout the lung hyatt. The findings and the impression was discussed with the patient. I attest to the documentation by the nurse practitioner. I have personally seen and examined the patient, performed the documentation and the assessment and plan as written. Number of minutes spent on the visit: 10 Time with Patient: Less than 30 <Camila Butler - Last Filed: 10/23/21 18:59> Objective - Vital Signs Vital signs: Vital Signs Temp 99.5 F 10/23/21 12:00 Pulse 82 10/23/21 18:00 Resp 11 L 10/23/21 18:00 BP 100/61 10/23/21 18:00 Pulse Ox 98 10/23/21 18:18 Intake & Output 10/22/21 10/23/21 10/23/21 18:59 06:59 18:59 Intake Total 0091.162 8207.125 2078.136 Output Total 3920 1780 1350 Balance -1959.540 -20.875 728.136 Weight 80.8 kg 80.8 kg Intake: IV 53 1335.5 1809.5 Acetominophen 100 Albumin 250 1000 CO/CI 270 50 Kefzol 50 100 LR @50mls/hr 550 550 Nitro 16.5 1.5 Pressure Bag 99 108 Intake, IV Titration 1847.460 183.625 268.636 Amount ACETAMINOPHEN IV (For NPO 100 ) 1,000 mg In Empty Bag 1 bag @ 400 mls/hr IVPB Q6HR [facility] Rx#:[id number] Albumin Human 5% 250 ml 1000 In Empty Bag 1 bag @ 250 mls/hr IVPB Q1HR PRN Rx#: [id number] Calcium Gluconate 2 gm In 100 Sodium Chloride 0.9% 100 ml @ 100 mls/hr IVPB ONCE ONE Rx#:[id number] Insulin Regular 100 unit 3.425 22.313 19.098 In Sodium Chloride 0.9% 100 ml @ Per Protocol IV .Q0M [facility] Rx#:[id number] Lactated Ringers 1,000 ml 250 50 @ 50 mls/hr IV .Q20H [facility] Rx#:[id number] Magnesium Sulfate-D5w Pmx 200 1 gm In Dextrose/Water 1 100ml.bag @ 100 mls/hr IVPB Q1H [facility] Rx#: [id number] Magnesium Sulfate-D5w Pmx 100 100 1 gm In Dextrose/Water 1 100ml.bag @ 100 mls/hr IVPB Q1H [facility] Rx#: [id number] Nitroglycerin-D5w Pmx 50 7.5 1.5 25.325 mg In Dextrose/Water 1 250ml.bag @ 5 MCG/MIN 1.5 mls/hr IV .Q24H [facility] Rx#: [id number] Norepinephrine 4 mg In 67.908 9.812 124.213 Sodium Chloride 0.9% 250 ml @ 0.05 MCG/KG/MIN 14. 573 mls/hr IV .[id number] [facility] Rx#:[id number] Norepinephrine 4 mg In 17.0 Sodium Chloride 0.9% 250 ml @ Titrate IV .Q0M [facility] Rx#:[id number] ceFAZolin 2 gm In Sodium 50 Chloride 0.9% 50 ml @ 100 mls/hr IVPB Q8HR [facility] Rx# :[id number] propofoL 1,000 mg In 51.627 Empty Bag 1 bag @ Titrate IV .Q0M [facility] Rx#: [id number] Oral 240 Other 60 Output: Chest Tube Drainage 620 330 270 lt pleural 280 40 120 ms x2 340 290 150 Urine 1300 1450 1080 Estimated Blood Loss 2000 Other: Voiding Method Indwelling Catheter Indwelling Catheter Indwelling Catheter ABP, PAP, CO, CI - Last Documented Arterial Blood Pressure 119/49 Pulmonary Artery Pressure 37/15 Cardiac Output 7.6 Cardiac Index 3.9 - Labs CBC & Chem 7: 10/23/21 04:00 10/23/21 04:00 Labs: Abnormal Lab Results - Last 24 Hours (Table) 10/21/21 10/22/21 10/22/21 Range/Units 08:22 19:00 19:04 RBC 3.14 L (4.30-5.90) m/uL Hgb 9.9 L (13.0-17.5) gm/dL Hct 29.9 L (39.0-53.0) % Plt Count 88 L (150-450) k/uL Lymphocytes # 0.3 L (1.0-4.8) k/uL Sodium (137-145) mmol/L Creatinine (0.66-1.25) mg/dL Glucose (74-99) mg/dL POC Glucose (mg/dL) 156 H (75-99) mg/dL Total Bilirubin (0.2-1.3) mg/dL Total Protein (6.3-8.2) g/dL Albumin (3.5-5.0) g/dL Crossmatch See Detail 10/22/21 10/22/21 10/22/21 Range/Units 19:55 20:52 21:52 RBC (4.30-5.90) m/uL Hgb (13.0-17.5) gm/dL Hct (39.0-53.0) % Plt Count (150-450) k/uL Lymphocytes # (1.0-4.8) k/uL Sodium (137-145) mmol/L Creatinine (0.66-1.25) mg/dL Glucose (74-99) mg/dL POC Glucose (mg/dL) 141 H 137 H 126 H (75-99) mg/dL Total Bilirubin (0.2-1.3) mg/dL Total Protein (6.3-8.2) g/dL Albumin (3.5-5.0) g/dL Crossmatch 10/22/21 10/23/21 10/23/21 Range/Units 23:01 00:12 01:00 RBC (4.30-5.90) m/uL Hgb (13.0-17.5) gm/dL Hct (39.0-53.0) % Plt Count (150-450) k/uL Lymphocytes # (1.0-4.8) k/uL Sodium (137-145) mmol/L Creatinine (0.66-1.25) mg/dL Glucose (74-99) mg/dL POC Glucose (mg/dL) 116 H 121 H 127 H (75-99) mg/dL Total Bilirubin (0.2-1.3) mg/dL Total Protein (6.3-8.2) g/dL Albumin (3.5-5.0) g/dL Crossmatch 10/23/21 10/23/21 10/23/21 Range/Units 01:59 03:03 03:57 RBC (4.30-5.90) m/uL Hgb (13.0-17.5) gm/dL Hct (39.0-53.0) % Plt Count (150-450) k/uL Lymphocytes # (1.0-4.8) k/uL Sodium (137-145) mmol/L Creatinine (0.66-1.25) mg/dL Glucose (74-99) mg/dL POC Glucose (mg/dL) 117 H 113 H 125 H (75-99) mg/dL Total Bilirubin (0.2-1.3) mg/dL Total Protein (6.3-8.2) g/dL Albumin (3.5-5.0) g/dL Crossmatch 10/23/21 10/23/21 10/23/21 Range/Units 04:00 04:00 05:01 RBC 3.24 L (4.30-5.90) m/uL Hgb 10.8 L (13.0-17.5) gm/dL Hct 30.6 L (39.0-53.0) % Plt Count 110 L (150-450) k/uL Lymphocytes # 0.8 L (1.0-4.8) k/uL Sodium 134 L (137-145) mmol/L Creatinine 0.57 L (0.66-1.25) mg/dL Glucose 116 H (74-99) mg/dL POC Glucose (mg/dL) 125 H (75-99) mg/dL Total Bilirubin 1.9 H (0.2-1.3) mg/dL Total Protein 5.0 L (6.3-8.2) g/dL Albumin 3.4 L (3.5-5.0) g/dL Crossmatch 10/23/21 10/23/21 10/23/21 Range/Units 06:58 08:15 09:25 RBC (4.30-5.90) m/uL Hgb (13.0-17.5) gm/dL Hct (39.0-53.0) % Plt Count (150-450) k/uL Lymphocytes # (1.0-4.8) k/uL Sodium (137-145) mmol/L Creatinine (0.66-1.25) mg/dL Glucose (74-99) mg/dL POC Glucose (mg/dL) 136 H 134 H 141 H (75-99) mg/dL Total Bilirubin (0.2-1.3) mg/dL Total Protein (6.3-8.2) g/dL Albumin (3.5-5.0) g/dL Crossmatch 10/23/21 10/23/21 10/23/21 Range/Units 10:27 11:10 12:36 RBC (4.30-5.90) m/uL Hgb (13.0-17.5) gm/dL Hct (39.0-53.0) % Plt Count (150-450) k/uL Lymphocytes # (1.0-4.8) k/uL Sodium (137-145) mmol/L Creatinine (0.66-1.25) mg/dL Glucose (74-99) mg/dL POC Glucose (mg/dL) 126 H 110 H 108 H (75-99) mg/dL Total Bilirubin (0.2-1.3) mg/dL Total Protein (6.3-8.2) g/dL Albumin (3.5-5.0) g/dL Crossmatch 10/23/21 10/23/21 10/23/21 Range/Units 14:17 15:13 16:44 RBC (4.30-5.90) m/uL Hgb (13.0-17.5) gm/dL Hct (39.0-53.0) % Plt Count (150-450) k/uL Lymphocytes # (1.0-4.8) k/uL Sodium (137-145) mmol/L Creatinine (0.66-1.25) mg/dL Glucose (74-99) mg/dL POC Glucose (mg/dL) 134 H 151 H 111 H (75-99) mg/dL Total Bilirubin (0.2-1.3) mg/dL Total Protein (6.3-8.2) g/dL Albumin (3.5-5.0) g/dL Crossmatch 10/23/21 Range/Units 17:58 RBC (4.30-5.90) m/uL Hgb (13.0-17.5) gm/dL Hct (39.0-53.0) % Plt Count (150-450) k/uL Lymphocytes # (1.0-4.8) k/uL Sodium (137-145) mmol/L Creatinine (0.66-1.25) mg/dL Glucose (74-99) mg/dL POC Glucose (mg/dL) 123 H (75-99) mg/dL Total Bilirubin (0.2-1.3) mg/dL Total Protein (6.3-8.2) g/dL Albumin (3.5-5.0) g/dL Crossmatch Microbiology - Last 24 Hours (Table) 10/21/21 16:03 Nasal Screen MRSA/MSSA - Final Nasal Swab Assessment and Plan Plan: This is a joint evaluation that was done with the nurse practitioner. This evaluation was done more than 20 minutes. As mentioned earlier, the patient is post bypass surgery. He was having issues with hypotension. He was given a total of 4 L of IV albumin. He was also on low-dose norepinephrine infusion. He was able to maintain a adequate cardiac output and index. We'll continue fluid resuscitation. We'll give another 500 mL of IV albumin and wean off the pressors. We'll monitor the hemodynamic profile. Urine output is adequate and the order of 50 mL an hour. No signs of any pulmonary edema. Respiratory st atus is stable. We'll continue to follow. The patient is postop day number 1
[2021-10-23 09:26] LABS: Glucose,Whole Blood 141 mg/dL (75-99)
--- NOTE | 2021-10-23 09:58 | P.PN ---
Subjective Progress Note Date: 10/23/21 Principal diagnosis: Coronary artery disease, non-STEMI this admission. Past medical history significant for current tobacco dependence, mild COPD, hyperlipidemia, ischemic cardiomyopathy, family history of heart failure, and diabetes. Vaccinated, not boosted against Covid-19. POD #1 off-pump coronary artery bypass grafting 2 with left internal thoracic artery to the left anterior descending coronary artery, a reverse greater saphenous vein graft to the posterior descending coronary artery. Endoscopic left greater saphenous vein harvest, left atrial appendage ligation using a 35 mm Atriclip, intraoperative transesophageal echocardiogram and graft flow measurements using the i[employer] Globalstim flow device. Postoperative acute blood loss anemia, expected given hemodilution. The patient was seen in follow-up today 10/23/2021 at his bedside in the intensive care unit. Currently sitting up to the bedside chair, is awake, alert, oriented 3 and is in no acute distress. He was successfully extubated at 6:12 PM last evening, currently he is on 4 L nasal cannula with oxygen saturation is 96%. He is achieving 1000 mL on his incentive spirometry with much encouragement. Norepinephrine drip is infusing at 0.03 mcg/kg/m for blood pressure support. Right IJ Cordis and [place]-Arcenio catheter remained in place with current hemodynamic showing a cardiac output of 6.2, cardiac index 3.5, PA pressures 27/7, and CVP 2 mmHg. Mediastinal and left pleural chest tubes remain in place to low continuous wall suction -20 cm H2O. No air leak is present. Draining thin serosanguineous drainage. Mediastinal chest tubes drained 200 mL output in the last 8 hours and 630 mL output since surgery. Left pleural chest tube drained 20 mL output in the last 8 hours and 310 mL output since surgery. Bedside telemetry showing normal sinus rhythm heart rate 85 BPM. Patient denies any complaints of shortness of breath at this time although was complaining of some surgical type pain to his chest tube insertion sites rating his pain 9 out of 10 on the pain scale. Objective - Vital Signs Vital signs: Vital Signs Temp 99.7 F H 10/23/21 08:00 Pulse 85 10/23/21 09:00 Resp 20 10/23/21 09:00 BP 88/52 10/23/21 09:00 Pulse Ox 96 10/23/21 09:00 Intake & Output 10/22/21 10/23/21 10/23/21 18:59 06:59 18:59 Intake Total 2033.136 8539.125 1005.796 Output Total 3920 1780 200 Balance -1959.540 -20.875 805.796 Weight 80.8 kg Intake: IV 53 1335.5 768.5 Acetominophen 100 Albumin 250 500 CO/CI 270 40 Kefzol 50 100 LR @50mls/hr 550 100 Nitro 16.5 1.5 Pressure Bag 99 27 Intake, IV Titration 1847.460 183.625 237.296 Amount ACETAMINOPHEN IV (For NPO 100 ) 1,000 mg In Empty Bag 1 bag @ 400 mls/hr IVPB Q6HR [facility] Rx#:[id number] Albumin Human 5% 250 ml 1000 In Empty Bag 1 bag @ 250 mls/hr IVPB Q1HR PRN Rx#: [id number] Calcium Gluconate 2 gm In 100 Sodium Chloride 0.9% 100 ml @ 100 mls/hr IVPB ONCE ONE Rx#:[id number] Insulin Regular 100 unit 3.425 22.313 In Sodium Chloride 0.9% 100 ml @ Per Protocol IV .Q0M [facility] Rx#:[id number] Lactated Ringers 1,000 ml 250 50 @ 50 mls/hr IV .Q20H [facility] Rx#:[id number] Magnesium Sulfate-D5w Pmx 200 1 gm In Dextrose/Water 1 100ml.bag @ 100 mls/hr IVPB Q1H [facility] Rx#: [id number] Magnesium Sulfate-D5w Pmx 100 100 1 gm In Dextrose/Water 1 100ml.bag @ 100 mls/hr IVPB Q1H [facility] Rx#: [id number] Nitroglycerin-D5w Pmx 50 7.5 1.5 25.325 mg In Dextrose/Water 1 250ml.bag @ 5 MCG/MIN 1.5 mls/hr IV .Q24H [facility] Rx#: [id number] Norepinephrine 4 mg In 67.908 9.812 111.971 Sodium Chloride 0.9% 250 ml @ 0.05 MCG/KG/MIN 14. 573 mls/hr IV .[id number] [facility] Rx#:[id number] Norepinephrine 4 mg In 17.0 Sodium Chloride 0.9% 250 ml @ Titrate IV .Q0M [facility] Rx#:[id number] ceFAZolin 2 gm In Sodium 50 Chloride 0.9% 50 ml @ 100 mls/hr IVPB Q8HR [facility] Rx# :[id number] propofoL 1,000 mg In 51.627 Empty Bag 1 bag @ Titrate IV .Q0M [facility] Rx#: [id number] Oral 240 Other 60 Output: Chest Tube Drainage 620 330 60 lt pleural 280 40 0 ms x2 340 290 60 Urine 1300 1450 140 Estimated Blood Loss 2000 Other: Voiding Method Indwelling Catheter Indwelling Catheter Indwelling Catheter ABP, PAP, CO, CI - Last Documented Arterial Blood Pressure 90/39 Pulmonary Artery Pressure 27/8 Cardiac Output 6.9 Cardiac Index 3.5 - Exam CONSTITUTIONAL: Sitting up to the bedside chair in the intensive care unit, appears comfortable, cooperative, no apparent acute distress. HEENT: Neck is supple, no JVD, no lymphadenopathy. Right IJ Cordis and [place]- Arcenio catheter in place and functioning. RESPIRATORY: Lungs sounds essentially clear throughout, diminished to his bilateral bases. Respirations are symmetrical and nonlabored. Currently on 4 L nasal cannula with oxygen saturations 96%. Able to achieve 1000 mL on his incentive spirometry. Strong cough. CARDIOVASCULAR: Regular rhythm and rate. S1 and S2 present, negative for S3, gallop or murmur. Sternum is stable. Palpable peripheral pulses bilaterally. No calf pain or tenderness noted. Heart hugger in place with patient demonstrating appropriate use. Knee-high JEANNETTE hose and sequential compression devices in place to his bilateral lower extremities. GASTROINTESTINAL: Abdomen soft, nontender, nondistended. Active bowel sounds present 4 quadrants. Tolerating diet. Passing flatus. No guarding or rigidity. GENITOURINARY: Peng present draining clear, yellow urine. Output 860 mL in the last 8 hours. INTEGUMENTARY: Skin is warm and dry with no evidence of clubbing or cyanosis. Midline sternal incision clean dry and well approximated, covered with dry in tact dressing. Left lower extremity EVH sites well approximated without redness or drainage. NEUROLOGIC: Cranial nerves II through XII intact. No focal deficits. MUSKULOSKELETAL: Able to move all extremities, strength equal bilaterally, generalized weakness. PSYCHIATRIC: Alert and oriented to person place and time, appropriate affect, intact judgment and insight. INVASIVE LINES AND TUBES: Mediastinal/left pleural chest tubes present and connected to low continuous wall suction, no air leaks present. Mediastinal tube with 200 mL of thin serosanguineous drainage overnight, 630 mL output in the last 24 hours. Left pleural chest tube with 20 mL of thin serosanguineous drainage overnight, 310 mL output in the last 24 hours. Ventricular epicardial pacemaker wires present, connected to generator, VVI backup rate 50 bpm. Right internal jugular [place]/Cordis, right radial arterial line present. Last CO 6.2, CI 3.5, PA 24/7 and CVP 2 mmHg. - Allied health notes Allied health notes reviewed: nursing - Labs CBC & Chem 7: 10/23/21 04:00 10/23/21 04:00 Labs: Abnormal Lab Results - Last 24 Hours (Table) 10/21/21 10/22/21 10/22/21 Range/Units 08:22 08:29 09:54 RBC (4.30-5.90) m/uL Hgb (13.0-17.5) gm/dL Hct (39.0-53.0) % Plt Count (150-450) k/uL Lymphocytes # (1.0-4.8) k/uL PT (9.0-12.0) sec INR (<1.2) APTT (22.0-30.0) sec ABG pH 7.24 L (7.35-7.45) ABG pCO2 58 H (35-45) mmHg ABG pO2 215 H 197 H (83-108) mmHg ABG HCO3 (21-25) mmol/L ABG Total CO2 26 H 27 H (19-24) mmol/L ABG O2 Saturation 99.7 H 99.3 H (94-97) % ABG Hematocrit (34.0-46.0) % ABG Ionized Calcium (4.5-5.3) mg/dL ABG Glucose 112 H (75-99) mg/dL Hemoglobin 11.2 L (13.0-17.5) gm/dL Sodium (137-145) mmol/L Chloride (98-107) mmol/L Creatinine (0.66-1.25) mg/dL Glucose (74-99) mg/dL POC Glucose (mg/dL) (75-99) mg/dL Calcium (8.4-10.2) mg/dL Total Bilirubin (0.2-1.3) mg/dL Alkaline Phosphatase (38-126) U/L Total Protein (6.3-8.2) g/dL Albumin (3.5-5.0) g/dL Arterial Blood Glucose 112 H (75-99) mg/dL Crossmatch See Detail 10/22/21 10/22/21 10/22/21 Range/Units 10:25 11:00 11:41 RBC (4.30-5.90) m/uL Hgb (13.0-17.5) gm/dL Hct (39.0-53.0) % Plt Count (150-450) k/uL Lymphocytes # (1.0-4.8) k/uL PT (9.0-12.0) sec INR (<1.2) APTT (22.0-30.0) sec ABG pH 7.33 L (7.35-7.45) ABG pCO2 50 H 46 H (35-45) mmHg ABG pO2 176 H 207 H 224 H (83-108) mmHg ABG HCO3 26 H 26 H (21-25) mmol/L ABG Total CO2 28 H 27 H 27 H (19-24) mmol/L ABG O2 Saturation 99.3 H 99.5 H 99.6 H (94-97) % ABG Hematocrit 31 L 29 L 30 L (34.0-46.0) % ABG Ionized Calcium 4.3 L (4.5-5.3) mg/dL ABG Glucose 123 H 124 H 120 H (75-99) mg/dL Hemoglobin 10.2 L 9.5 L 9.7 L (13.0-17.5) gm/dL Sodium (137-145) mmol/L Chloride (98-107) mmol/L Creatinine (0.66-1.25) mg/dL Glucose (74-99) mg/dL POC Glucose (mg/dL) (75-99) mg/dL Calcium (8.4-10.2) mg/dL Total Bilirubin (0.2-1.3) mg/dL Alkaline Phosphatase (38-126) U/L Total Protein (6.3-8.2) g/dL Albumin (3.5-5.0) g/dL Arterial Blood Glucose 123 H 124 H 120 H (75-99) mg/dL Crossmatch 10/22/21 10/22/21 10/22/21 Range/Units 12:54 13:40 13:40 RBC 3.29 L (4.30-5.90) m/uL Hgb 10.7 L D (13.0-17.5) gm/dL Hct 31.3 L (39.0-53.0) % Plt Count 100 L (150-450) k/uL Lymphocytes # (1.0-4.8) k/uL PT (9.0-12.0) sec INR (<1.2) APTT (22.0-30.0) sec ABG pH 7.34 L (7.35-7.45) ABG pCO2 47 H (35-45) mmHg ABG pO2 174 H (83-108) mmHg ABG HCO3 (21-25) mmol/L ABG Total CO2 27 H (19-24) mmol/L ABG O2 Saturation 99.2 H (94-97) % ABG Hematocrit (34.0-46.0) % ABG Ionized Calcium 5.5 H (4.5-5.3) mg/dL ABG Glucose 117 H (75-99) mg/dL Hemoglobin 11.2 L (13.0-17.5) gm/dL Sodium (137-145) mmol/L Chloride (98-107) mmol/L Creatinine (0.66-1.25) mg/dL Glucose (74-99) mg/dL POC Glucose (mg/dL) 109 H (75-99) mg/dL Calcium (8.4-10.2) mg/dL Total Bilirubin (0.2-1.3) mg/dL Alkaline Phosphatase (38-126) U/L Total Protein (6.3-8.2) g/dL Albumin (3.5-5.0) g/dL Arterial Blood Glucose 117 H (75-99) mg/dL Crossmatch 10/22/21 10/22/21 10/22/21 Range/Units 13:40 13:40 14:09 RBC (4.30-5.90) m/uL Hgb (13.0-17.5) gm/dL Hct (39.0-53.0) % Plt Count (150-450) k/uL Lymphocytes # (1.0-4.8) k/uL PT 13.0 H (9.0-12.0) sec INR 1.2 H (<1.2) APTT 35.0 H (22.0-30.0) sec ABG pH 7.33 L (7.35-7.45) ABG pCO2 46 H (35-45) mmHg ABG pO2 >400 H (83-108) mmHg ABG HCO3 (21-25) mmol/L ABG Total CO2 26 H (19-24) mmol/L ABG O2 Saturation 99.5 H (94-97) % ABG Hematocrit (34.0-46.0) % ABG Ionized Calcium (4.5-5.3) mg/dL ABG Glucose (75-99) mg/dL Hemoglobin (13.0-17.5) gm/dL Sodium (137-145) mmol/L Chloride 111 H (98-107) mmol/L Creatinine 0.58 L (0.66-1.25) mg/dL Glucose 108 H (74-99) mg/dL POC Glucose (mg/dL) (75-99) mg/dL Calcium 7.9 L (8.4-10.2) mg/dL Total Bilirubin (0.2-1.3) mg/dL Alkaline Phosphatase 35 L (38-126) U/L Total Protein 4.2 L (6.3-8.2) g/dL Albumin 2.7 L (3.5-5.0) g/dL Arterial Blood Glucose (75-99) mg/dL Crossmatch 10/22/21 10/22/21 10/22/21 Range/Units 14:44 15:45 15:47 RBC 3.00 L (4.30-5.90) m/uL Hgb 9.8 L (13.0-17.5) gm/dL Hct 28.4 L (39.0-53.0) % Plt Count 85 L (150-450) k/uL Lymphocytes # 0.8 L (1.0-4.8) k/uL PT (9.0-12.0) sec INR (<1.2) APTT (22.0-30.0) sec ABG pH (7.35-7.45) ABG pCO2 (35-45) mmHg ABG pO2 (83-108) mmHg ABG HCO3 (21-25) mmol/L ABG Total CO2 (19-24) mmol/L ABG O2 Saturation (94-97) % ABG Hematocrit (34.0-46.0) % ABG Ionized Calcium (4.5-5.3) mg/dL ABG Glucose (75-99) mg/dL Hemoglobin (13.0-17.5) gm/dL Sodium (137-145) mmol/L Chloride (98-107) mmol/L Creatinine (0.66-1.25) mg/dL Glucose (74-99) mg/dL POC Glucose (mg/dL) 122 H 132 H (75-99) mg/dL Calcium (8.4-10.2) mg/dL Total Bilirubin (0.2-1.3) mg/dL Alkaline Phosphatase (38-126) U/L Total Protein (6.3-8.2) g/dL Albumin (3.5-5.0) g/dL Arterial Blood Glucose (75-99) mg/dL Crossmatch 10/22/21 10/22/21 10/22/21 Range/Units 17:02 18:02 18:03 RBC (4.30-5.90) m/uL Hgb (13.0-17.5) gm/dL Hct (39.0-53.0) % Plt Count (150-450) k/uL Lymphocytes # (1.0-4.8) k/uL PT (9.0-12.0) sec INR (<1.2) APTT (22.0-30.0) sec ABG pH (7.35-7.45) ABG pCO2 (35-45) mmHg ABG pO2 127 H (83-108) mmHg ABG HCO3 (21-25) mmol/L ABG Total CO2 26 H (19-24) mmol/L ABG O2 Saturation 98.5 H (94-97) % ABG Hematocrit (34.0-46.0) % ABG Ionized Calcium (4.5-5.3) mg/dL ABG Glucose (75-99) mg/dL Hemoglobin (13.0-17.5) gm/dL Sodium (137-145) mmol/L Chloride (98-107) mmol/L Creatinine (0.66-1.25) mg/dL Glucose (74-99) mg/dL POC Glucose (mg/dL) 157 H 169 H (75-99) mg/dL Calcium (8.4-10.2) mg/dL Total Bilirubin (0.2-1.3) mg/dL Alkaline Phosphatase (38-126) U/L Total Protein (6.3-8.2) g/dL Albumin (3.5-5.0) g/dL Arterial Blood Glucose (75-99) mg/dL Crossmatch 10/22/21 10/22/21 10/22/21 Range/Units 19:00 19:04 19:55 RBC 3.14 L (4.30-5.90) m/uL Hgb 9.9 L (13.0-17.5) gm/dL Hct 29.9 L (39.0-53.0) % Plt Count 88 L (150-450) k/uL Lymphocytes # 0.3 L (1.0-4.8) k/uL PT (9.0-12.0) sec INR (<1.2) APTT (22.0-30.0) sec ABG pH (7.35-7.45) ABG pCO2 (35-45) mmHg ABG pO2 (83-108) mmHg ABG HCO3 (21-25) mmol/L ABG Total CO2 (19-24) mmol/L ABG O2 Saturation (94-97) % ABG Hematocrit (34.0-46.0) % ABG Ionized Calcium (4.5-5.3) mg/dL ABG Glucose (75-99) mg/dL Hemoglobin (13.0-17.5) gm/dL Sodium (137-145) mmol/L Chloride (98-107) mmol/L Creatinine (0.66-1.25) mg/dL Glucose (74-99) mg/dL POC Glucose (mg/dL) 156 H 141 H (75-99) mg/dL Calcium (8.4-10.2) mg/dL Total Bilirubin (0.2-1.3) mg/dL Alkaline Phosphatase (38-126) U/L Total Protein (6.3-8.2) g/dL Albumin (3.5-5.0) g/dL Arterial Blood Glucose (75-99) mg/dL Crossmatch 10/22/21 10/22/21 10/22/21 Range/Units 20:52 21:52 23:01 RBC (4.30-5.90) m/uL Hgb (13.0-17.5) gm/dL Hct (39.0-53.0) % Plt Count (150-450) k/uL Lymphocytes # (1.0-4.8) k/uL PT (9.0-12.0) sec INR (<1.2) APTT (22.0-30.0) sec ABG pH (7.35-7.45) ABG pCO2 (35-45) mmHg ABG pO2 (83-108) mmHg ABG HCO3 (21-25) mmol/L ABG Total CO2 (19-24) mmol/L ABG O2 Saturation (94-97) % ABG Hematocrit (34.0-46.0) % ABG Ionized Calcium (4.5-5.3) mg/dL ABG Glucose (75-99) mg/dL Hemoglobin (13.0-17.5) gm/dL Sodium (137-145) mmol/L Chloride (98-107) mmol/L Creatinine (0.66-1.25) mg/dL Glucose (74-99) mg/dL POC Glucose (mg/dL) 137 H 126 H 116 H (75-99) mg/dL Calcium (8.4-10.2) mg/dL Total Bilirubin (0.2-1.3) mg/dL Alkaline Phosphatase (38-126) U/L Total Protein (6.3-8.2) g/dL Albumin (3.5-5.0) g/dL Arterial Blood Glucose (75-99) mg/dL Crossmatch 10/23/21 10/23/21 10/23/21 Range/Units 00:12 01:00 01:59 RBC (4.30-5.90) m/uL Hgb (13.0-17.5) gm/dL Hct (39.0-53.0) % Plt Count (150-450) k/uL Lymphocytes # (1.0-4.8) k/uL PT (9.0-12.0) sec INR (<1.2) APTT (22.0-30.0) sec ABG pH (7.35-7.45) ABG pCO2 (35-45) mmHg ABG pO2 (83-108) mmHg ABG HCO3 (21-25) mmol/L ABG Total CO2 (19-24) mmol/L ABG O2 Saturation (94-97) % ABG Hematocrit (34.0-46.0) % ABG Ionized Calcium (4.5-5.3) mg/dL ABG Glucose (75-99) mg/dL Hemoglobin (13.0-17.5) gm/dL Sodium (137-145) mmol/L Chloride (98-107) mmol/L Creatinine (0.66-1.25) mg/dL Glucose (74-99) mg/dL POC Glucose (mg/dL) 121 H 127 H 117 H (75-99) mg/dL Calcium (8.4-10.2) mg/dL Total Bilirubin (0.2-1.3) mg/dL Alkaline Phosphatase (38-126) U/L Total Protein (6.3-8.2) g/dL Albumin (3.5-5.0) g/dL Arterial Blood Glucose (75-99) mg/dL Crossmatch 10/23/21 10/23/21 10/23/21 Range/Units 03:03 03:57 04:00 RBC 3.24 L (4.30-5.90) m/uL Hgb 10.8 L (13.0-17.5) gm/dL Hct 30.6 L (39.0-53.0) % Plt Count 110 L (150-450) k/uL Lymphocytes # 0.8 L (1.0-4.8) k/uL PT (9.0-12.0) sec INR (<1.2) APTT (22.0-30.0) sec ABG pH (7.35-7.45) ABG pCO2 (35-45) mmHg ABG pO2 (83-108) mmHg ABG HCO3 (21-25) mmol/L ABG Total CO2 (19-24) mmol/L ABG O2 Saturation (94-97) % ABG Hematocrit (34.0-46.0) % ABG Ionized Calcium (4.5-5.3) mg/dL ABG Glucose (75-99) mg/dL Hemoglobin (13.0-17.5) gm/dL Sodium (137-145) mmol/L Chloride (98-107) mmol/L Creatinine (0.66-1.25) mg/dL Glucose (74-99) mg/dL POC Glucose (mg/dL) 113 H 125 H (75-99) mg/dL Calcium (8.4-10.2) mg/dL Total Bilirubin (0.2-1.3) mg/dL Alkaline Phosphatase (38-126) U/L Total Protein (6.3-8.2) g/dL Albumin (3.5-5.0) g/dL Arterial Blood Glucose (75-99) mg/dL Crossmatch 10/23/21 10/23/21 10/23/21 Range/Units 04:00 05:01 06:58 RBC (4.30-5.90) m/uL Hgb (13.0-17.5) gm/dL Hct (39.0-53.0) % Plt Count (150-450) k/uL Lymphocytes # (1.0-4.8) k/uL PT (9.0-12.0) sec INR (<1.2) APTT (22.0-30.0) sec ABG pH (7.35-7.45) ABG pCO2 (35-45) mmHg ABG pO2 (83-108) mmHg ABG HCO3 (21-25) mmol/L ABG Total CO2 (19-24) mmol/L ABG O2 Saturation (94-97) % ABG Hematocrit (34.0-46.0) % ABG Ionized Calcium (4.5-5.3) mg/dL ABG Glucose (75-99) mg/dL Hemoglobin (13.0-17.5) gm/dL Sodium 134 L (137-145) mmol/L Chloride (98-107) mmol/L Creatinine 0.57 L (0.66-1.25) mg/dL Glucose 116 H (74-99) mg/dL POC Glucose (mg/dL) 125 H 136 H (75-99) mg/dL Calcium (8.4-10.2) mg/dL Total Bilirubin 1.9 H (0.2-1.3) mg/dL Alkaline Phosphatase (38-126) U/L Total Protein 5.0 L (6.3-8.2) g/dL Albumin 3.4 L (3.5-5.0) g/dL Arterial Blood Glucose (75-99) mg/dL Crossmatch 10/23/21 10/23/21 Range/Units 08:15 09:25 RBC (4.30-5.90) m/uL Hgb (13.0-17.5) gm/dL Hct (39.0-53.0) % Plt Count (150-450) k/uL Lymphocytes # (1.0-4.8) k/uL PT (9.0-12.0) sec INR (<1.2) APTT (22.0-30.0) sec ABG pH (7.35-7.45) ABG pCO2 (35-45) mmHg ABG pO2 (83-108) mmHg ABG HCO3 (21-25) mmol/L ABG Total CO2 (19-24) mmol/L ABG O2 Saturation (94-97) % ABG Hematocrit (34.0-46.0) % ABG Ionized Calcium (4.5-5.3) mg/dL ABG Glucose (75-99) mg/dL Hemoglobin (13.0-17.5) gm/dL Sodium (137-145) mmol/L Chloride (98-107) mmol/L Creatinine (0.66-1.25) mg/dL Glucose (74-99) mg/dL POC Glucose (mg/dL) 134 H 141 H (75-99) mg/dL Calcium (8.4-10.2) mg/dL Total Bilirubin (0.2-1.3) mg/dL Alkaline Phosphatase (38-126) U/L Total Protein (6.3-8.2) g/dL Albumin (3.5-5.0) g/dL Arterial Blood Glucose (75-99) mg/dL Crossmatch Microbiology - Last 24 Hours (Table) 10/21/21 16:03 Nasal Screen MRSA/MSSA - Final Nasal Swab - Imaging and Cardiology Chest x-ray: report reviewed, image reviewed Assessment and Plan Assessment: 1. Coronary artery disease, status post off-pump 2 vessel coronary artery bypass grafting surgery 2. Non-STEMI this admission 3. Current tobacco dependence 4. Mild COPD with FEV1 65% of predicted 5. Hyperlipidemia, untreated, cholesterol 174, LDL 107 6. Ischemic cardiomyopathy, EF 30-35% with apical LV wall hypokinesis 7. Family history of heart failure, and diabetes 8. Vaccinated, not boosted against Covid-19 Plan: 1. Continue aspirin, statin, Plavix and beta cuco. We will increase metoprolol tartrate as tolerated. 2. Wean O2 as tolerated. Encourage incentive spirometry 10 times every hour while awake. Bronchodilators per pulmonology. 3. Increase activity, ambulate as tolerated. PT/OT/cardiac rehab consulted. 4. GI/DVT prophylaxis. 5. Pain control with current medication regimen. Toradol 15 mg IV 1 now. 6. Will monitor daily labs and chest x-rays. Electrolyte replacement per protocol. 7. Insulin management per primary care service. Patient is not diabetic, preoperative hemoglobin A1c 6.0%, however patient does need tight blood sugar control to prevent infection and promote sternal union 8. Continue right IJ Cordis/[place]-Arcenio catheter. Continue to monitor hemodynamics. Wean norepinephrine drip as tolerated. 9. Continue mediastinal/left pleural chest tubes for another 24 hours. 10. Continue Peng catheter for another 24 hours for strict accurate intake and output. Daily weights. 11. Keep ventricular epicardial pacemaker wires in place and connected to back up to bedside generator. 12. More recommendations to follow based on patient's clinical course. Time with Patient: Greater than 30
[2021-10-23 10:28] LABS: Glucose,Whole Blood 126 mg/dL (75-99)
[2021-10-23] MEDS: LACTATED RINGERS 1,000 ML IV SCH (10:28)
[2021-10-23] MEDS: MIDODRINE 5 MG TAB PO SCH ×2 (10:34→17:04)
[2021-10-23] MEDS ORDERED: ALBUMIN HUMAN 5% 500 ML in EMPTY BAG 1 BAG IVPB ONE (11:00)
[2021-10-23 11:11] VITALS: BMI 24.1
[2021-10-23 11:11] LABS: Glucose,Whole Blood 110 mg/dL (75-99)
[2021-10-23 12:38] LABS: Glucose,Whole Blood 108 mg/dL (75-99)
[2021-10-23 14:19] LABS: Glucose,Whole Blood 134 mg/dL (75-99)
[2021-10-23 15:14] LABS: Glucose,Whole Blood 151 mg/dL (75-99)
[2021-10-23] MEDS ORDERED: CALCIUM GLUCONATE 1 GM in SODIUM CHLORIDE 0.9% 100 ML IVPB ONE (15:30)
[2021-10-23] MEDS: NITROGLYCERIN-D5W PMX 50 MG in DEXTROSE/WATER 1 250ML.BAG IV SCH (15:31)
[2021-10-23] MEDS: CLEVIDIPINE BUTYRATE 25 MG in EMPTY BAG 1 BAG IV SCH (15:32)
--- NOTE | 2021-10-23 15:32 | P.PN ---
Subjective Progress Note Date: 10/23/21 This is a 71-year-old gentleman admitted with acute non-STEMI. Status post cardiac catheterization reporting multi-vessel CAD with severe triple vessel disease with subtotal 99% LAD stenosis, 100% occlusion of the first diagonal, 70% occlusion of the circumflex, critical stenosis of the RCA proximally and total occlusion in the midportion, with collateral flow. . Anticoagulated on heparin drip, scheduled for CABG on . Denies chest pain, palpitations or shortness of breath. Maintaining O2 sats in the 90s on room air. 10/21/2021 had episode of heartburn last night, resolved with additional PPI with no reoccurrence. Denies chest pain, palpitations or shortness of breath. Afebrile. Maintaining O2 sats in the high 90s on room air. Chest x-ray pending. Labs pending. 10/23/21 status post CABG, postop day #1. Extubated yesterday. Left pleural chest tube 320ml, mediastinal X 2 630mls output since surgery. Hypotensive, received IV fluid resuscitation/albumin yesterday and this morning maintained on levophed and insulin drips. CO/CI 6.9/3.5. Telemetry sinus rhythm. Complains of pain at chest tube insertion sites, Toradol has been ordered. Incentive spirometer 900. Chest x-ray noted. Maintaining O2 sats in the mid 90s on 4 L nasal cannula. Afebrile, WBC 6.9, hemoglobin 10.8, platelets 110. Sodium 134, potassium 4.2, magnesium 1.7 .Renal function stable. Objective - Vital Signs Vital signs: Vital Signs Temp 99.5 F 10/23/21 12:00 Pulse 80 10/23/21 14:00 Resp 16 10/23/21 14:00 BP 80/63 10/23/21 14:00 Pulse Ox 96 10/23/21 13:00 Intake & Output 10/22/21 10/23/21 10/23/21 18:59 06:59 18:59 Intake Total 3749.552 2732.125 1837.212 Output Total 3920 1780 1100 Balance -1959.540 -20.875 737.212 Weight 80.8 kg 80.8 kg Intake: IV 53 1335.5 1573.5 Acetominophen 100 Albumin 250 1000 CO/CI 270 50 Kefzol 50 100 LR @50mls/hr 550 350 Nitro 16.5 1.5 Pressure Bag 99 72 Intake, IV Titration 1847.460 183.625 263.712 Amount ACETAMINOPHEN IV (For NPO 100 ) 1,000 mg In Empty Bag 1 bag @ 400 mls/hr IVPB Q6HR [facility] Rx#:[id number] Albumin Human 5% 250 ml 1000 In Empty Bag 1 bag @ 250 mls/hr IVPB Q1HR [facility] Rx#: [id number] Calcium Gluconate 2 gm In 100 Sodium Chloride 0.9% 100 ml @ 100 mls/hr IVPB ONCE ONE Rx#:[id number] Insulin Regular 100 unit 3.425 22.313 14.174 In Sodium Chloride 0.9% 100 ml @ Per Protocol IV .Q0M [facility] Rx#:[id number] Lactated Ringers 1,000 ml 250 50 @ 50 mls/hr IV .Q20H [facility] Rx#:[id number] Magnesium Sulfate-D5w Pmx 200 1 gm In Dextrose/Water 1 100ml.bag @ 100 mls/hr IVPB Q1H [facility] Rx#: [id number] Magnesium Sulfate-D5w Pmx 100 100 1 gm In Dextrose/Water 1 100ml.bag @ 100 mls/hr IVPB Q1H [facility] Rx#: [id number] Nitroglycerin-D5w Pmx 50 7.5 1.5 25.325 mg In Dextrose/Water 1 250ml.bag @ 5 MCG/MIN 1.5 mls/hr IV .Q24H [facility] Rx#: [id number] Norepinephrine 4 mg In 67.908 9.812 124.213 Sodium Chloride 0.9% 250 ml @ 0.05 MCG/KG/MIN 14. 573 mls/hr IV .[id number] [facility] Rx#:[id number] Norepinephrine 4 mg In 17.0 Sodium Chloride 0.9% 250 ml @ Titrate IV .Q0M [facility] Rx#:[id number] ceFAZolin 2 gm In Sodium 50 Chloride 0.9% 50 ml @ 100 mls/hr IVPB Q8HR [facility] Rx# :[id number] propofoL 1,000 mg In 51.627 Empty Bag 1 bag @ Titrate IV .Q0M [facility] Rx#: [id number] Oral 240 Other 60 Output: Chest Tube Drainage 620 330 220 lt pleural 280 40 70 ms x2 340 290 150 Urine 1300 1450 880 Estimated Blood Loss 1999 Other: Voiding Method Indwelling Catheter Indwelling Catheter Indwelling Catheter ABP, PAP, CO, CI - Last Documented Arterial Blood Pressure 93/43 Pulmonary Artery Pressure 32/10 Cardiac Output 6.6 Cardiac Index 3.4 - Exam PHYSICAL EXAM: VITAL SIGNS: [As above] GENERAL: Sitting up in chair, no acute distress HEENT: Conjunctivae normal. eyes normal. Oral mucosa moist NECK: Supple, No JVD. CARDIOVASCULAR: S1, S2 regular. No murmur RESPIRATION: Breath sounds diminished in the bases. Mediastinal 2 and one left pleural chest tubes present with sanguanous drainage. ABDOMEN: Soft, nontender . No guarding. no masses palpable. Positive bowel sounds. LEGS: No edema. no swelling. wearing knee High JEANNETTE hose with sequential compression PSYCHIATRY: Alert and oriented X3, mood and affect normal. NERVOUS SYSTEM: Cranial N 2-12 grossly normal. Moves all 4 limbs. No focal deficits. Strength and sensation grossly intact. Skin: Warm and dry, no rash - Labs CBC & Chem 7: 10/23/21 04:00 10/23/21 04:00 Labs: Abnormal Lab Results - Last 24 Hours (Table) 10/21/21 10/22/21 10/22/21 Range/Units 08:22 15:45 15:47 RBC 3.00 L (4.30-5.90) m/uL Hgb 9.8 L (13.0-17.5) gm/dL Hct 28.4 L (39.0-53.0) % Plt Count 85 L (150-450) k/uL Lymphocytes # 0.8 L (1.0-4.8) k/uL ABG pO2 (83-108) mmHg ABG Total CO2 (19-24) mmol/L ABG O2 Saturation (94-97) % Sodium (137-145) mmol/L Creatinine (0.66-1.25) mg/dL Glucose (74-99) mg/dL POC Glucose (mg/dL) 132 H (75-99) mg/dL Total Bilirubin (0.2-1.3) mg/dL Total Protein (6.3-8.2) g/dL Albumin (3.5-5.0) g/dL Crossmatch See Detail 10/22/21 10/22/21 10/22/21 Range/Units 17:02 18:02 18:03 RBC (4.30-5.90) m/uL Hgb (13.0-17.5) gm/dL Hct (39.0-53.0) % Plt Count (150-450) k/uL Lymphocytes # (1.0-4.8) k/uL ABG pO2 127 H (83-108) mmHg ABG Total CO2 26 H (19-24) mmol/L ABG O2 Saturation 98.5 H (94-97) % Sodium (137-145) mmol/L Creatinine (0.66-1.25) mg/dL Glucose (74-99) mg/dL POC Glucose (mg/dL) 157 H 169 H (75-99) mg/dL Total Bilirubin (0.2-1.3) mg/dL Total Protein (6.3-8.2) g/dL Albumin (3.5-5.0) g/dL Crossmatch 10/22/21 10/22/21 10/22/21 Range/Units 19:00 19:04 19:55 RBC 3.14 L (4.30-5.90) m/uL Hgb 9.9 L (13.0-17.5) gm/dL Hct 29.9 L (39.0-53.0) % Plt Count 88 L (150-450) k/uL Lymphocytes # 0.3 L (1.0-4.8) k/uL ABG pO2 (83-108) mmHg ABG Total CO2 (19-24) mmol/L ABG O2 Saturation (94-97) % Sodium (137-145) mmol/L Creatinine (0.66-1.25) mg/dL Glucose (74-99) mg/dL POC Glucose (mg/dL) 156 H 141 H (75-99) mg/dL Total Bilirubin (0.2-1.3) mg/dL Total Protein (6.3-8.2) g/dL Albumin (3.5-5.0) g/dL Crossmatch 10/22/21 10/22/21 10/22/21 Range/Units 20:52 21:52 23:01 RBC (4.30-5.90) m/uL Hgb (13.0-17.5) gm/dL Hct (39.0-53.0) % Plt Count (150-450) k/uL Lymphocytes # (1.0-4.8) k/uL ABG pO2 (83-108) mmHg ABG Total CO2 (19-24) mmol/L ABG O2 Saturation (94-97) % Sodium (137-145) mmol/L Creatinine (0.66-1.25) mg/dL Glucose (74-99) mg/dL POC Glucose (mg/dL) 137 H 126 H 116 H (75-99) mg/dL Total Bilirubin (0.2-1.3) mg/dL Total Protein (6.3-8.2) g/dL Albumin (3.5-5.0) g/dL Crossmatch 10/23/21 10/23/21 10/23/21 Range/Units 00:12 01:00 01:59 RBC (4.30-5.90) m/uL Hgb (13.0-17.5) gm/dL Hct (39.0-53.0) % Plt Count (150-450) k/uL Lymphocytes # (1.0-4.8) k/uL ABG pO2 (83-108) mmHg ABG Total CO2 (19-24) mmol/L ABG O2 Saturation (94-97) % Sodium (137-145) mmol/L Creatinine (0.66-1.25) mg/dL Glucose (74-99) mg/dL POC Glucose (mg/dL) 121 H 127 H 117 H (75-99) mg/dL Total Bilirubin (0.2-1.3) mg/dL Total Protein (6.3-8.2) g/dL Albumin (3.5-5.0) g/dL Crossmatch 10/23/21 10/23/21 10/23/21 Range/Units 03:03 03:57 04:00 RBC 3.24 L (4.30-5.90) m/uL Hgb 10.8 L (13.0-17.5) gm/dL Hct 30.6 L (39.0-53.0) % Plt Count 110 L (150-450) k/uL Lymphocytes # 0.8 L (1.0-4.8) k/uL ABG pO2 (83-108) mmHg ABG Total CO2 (19-24) mmol/L ABG O2 Saturation (94-97) % Sodium (137-145) mmol/L Creatinine (0.66-1.25) mg/dL Glucose (74-99) mg/dL POC Glucose (mg/dL) 113 H 125 H (75-99) mg/dL Total Bilirubin (0.2-1.3) mg/dL Total Protein (6.3-8.2) g/dL Albumin (3.5-5.0) g/dL Crossmatch 10/23/21 10/23/21 10/23/21 Range/Units 04:00 05:01 06:58 RBC (4.30-5.90) m/uL Hgb (13.0-17.5) gm/dL Hct (39.0-53.0) % Plt Count (150-450) k/uL Lymphocytes # (1.0-4.8) k/uL ABG pO2 (83-108) mmHg ABG Total CO2 (19-24) mmol/L ABG O2 Saturation (94-97) % Sodium 134 L (137-145) mmol/L Creatinine 0.57 L (0.66-1.25) mg/dL Glucose 116 H (74-99) mg/dL POC Glucose (mg/dL) 125 H 136 H (75-99) mg/dL Total Bilirubin 1.9 H (0.2-1.3) mg/dL Total Protein 5.0 L (6.3-8.2) g/dL Albumin 3.4 L (3.5-5.0) g/dL Crossmatch 10/23/21 10/23/21 10/23/21 Range/Units 08:15 09:25 10:27 RBC (4.30-5.90) m/uL Hgb (13.0-17.5) gm/dL Hct (39.0-53.0) % Plt Count (150-450) k/uL Lymphocytes # (1.0-4.8) k/uL ABG pO2 (83-108) mmHg ABG Total CO2 (19-24) mmol/L ABG O2 Saturation (94-97) % Sodium (137-145) mmol/L Creatinine (0.66-1.25) mg/dL Glucose (74-99) mg/dL POC Glucose (mg/dL) 134 H 141 H 126 H (75-99) mg/dL Total Bilirubin (0.2-1.3) mg/dL Total Protein (6.3-8.2) g/dL Albumin (3.5-5.0) g/dL Crossmatch 10/23/21 10/23/21 10/23/21 Range/Units 11:10 12:36 14:17 RBC (4.30-5.90) m/uL Hgb (13.0-17.5) gm/dL Hct (39.0-53.0) % Plt Count (150-450) k/uL Lymphocytes # (1.0-4.8) k/uL ABG pO2 (83-108) mmHg ABG Total CO2 (19-24) mmol/L ABG O2 Saturation (94-97) % Sodium (137-145) mmol/L Creatinine (0.66-1.25) mg/dL Glucose (74-99) mg/dL POC Glucose (mg/dL) 110 H 108 H 134 H (75-99) mg/dL Total Bilirubin (0.2-1.3) mg/dL Total Protein (6.3-8.2) g/dL Albumin (3.5-5.0) g/dL Crossmatch Microbiology - Last 24 Hours (Table) 10/21/21 16:03 Nasal Screen MRSA/MSSA - Final Nasal Swab Assessment and Plan Assessment: Acute non-STEMI with severe triple vessel disease, status post CABG Hypovolemic hypotension, pressor dependent Ischemic cardiomyopathy, EF 30-35% with apical left ventricular wall hypokinesis COPD Ongoing nicotine dependence Daily marijuana Plan: Continue on current medication regime ,monitoring and symptomatic treatment. Aggressive pulmonary toileting with incentive spirometer reinforced. Pain management. Prognosis guarded given multiple complex medical issues. The impression and plan of care has been dictated as directed. : I performed a history and examination of this patient, discussed the same with the dictator. I agree with the dictator's note ,documented as a scribe. Any additional findings or plans will be noted.
--- NOTE | 2021-10-23 16:27 | CONS ---
CONSULTATION DATE OF CONSULTATION: 10/19/21 I have seen, examined, and agree with the midlevel's findings. I met with this patient for 45 minutes during this consultation. BIPIN / FAMILIA: [id number] / [phone]
[2021-10-23 16:45] LABS: Glucose,Whole Blood 111 mg/dL (75-99)
[2021-10-23 17:59] LABS: Glucose,Whole Blood 123 mg/dL (75-99)
[2021-10-23 19:17] LABS: Glucose,Whole Blood 135 mg/dL (75-99)
[2021-10-23] MEDS: SENNOSIDES-DOCUSATE SODIUM 1 EACH TAB PO SCH (20:11)
[2021-10-23 20:16] LABS: Glucose,Whole Blood 171 mg/dL (75-99)
[2021-10-23 21:29] LABS: Glucose,Whole Blood 145 mg/dL (75-99)
[2021-10-23 22:06] LABS: Glucose,Whole Blood 121 mg/dL (75-99)
[2021-10-24 00:15] LABS: Glucose,Whole Blood 106 mg/dL (75-99)
[2021-10-24] MEDS: HEPARIN SODIUM,PORCINE/PF 5,000 UNIT/0.5 ML SYRINGE SQ SCH ×4 (00:28→23:51)
[2021-10-24] MEDS: HYDROcodone/APAP 5-325MG 1 EACH TAB PO PRN (01:57)
[2021-10-24 02:01] LABS: Glucose,Whole Blood 112 mg/dL (75-99)
[2021-10-24 03:30] LABS: Glucose,Whole Blood 145 mg/dL (75-99)
[2021-10-24 03:39] LABS: Basophils % (A) 0 %; Eosinophils % (A) 0 %; HCT 25.7 % (39.0-53.0); Lymphocytes # (A) 0.5 k/uL (1.0-4.8); Lymphocytes % (A) 10 %; MCH 32.8 pg (25.0-35.0); MCHC 34.7 g/dL (31.0-37.0); MCV 94.5 fL (80.0-100.0); Mean Platelet Volume 9.1; Monocytes # (A) 0.3 k/uL (0-1.0); Monocytes % (A) 6 %; Neutrophils # (A) 4.1 k/uL (1.3-7.7); Neutrophils % (A) 82 %; Platelet Count 83 k/uL (150-450); RBC 2.72 m/uL (4.30-5.90); RDW 15.2 % (11.5-15.5)
[2021-10-24 03:44] LABS: Ionized Calcium 4.8 mg/dL (4.5-5.3)
[2021-10-24 04:05] LABS: ALT 26 U/L (4-49); AST 32 U/L (17-59); African American GFR (CKD) >90 (>60 ml/min/1.73 sqM); Albumin 3.5 g/dL (3.5-5.0); Alkaline Phosphatase 42 U/L (38-126); Anion Gap 6 mmol/L; Blood Urea Nitrogen 10 mg/dL (9-20); Calcium 8.5 mg/dL (8.4-10.2); Carbon Dioxide 24 mmol/L (22-30); Chloride 105 mmol/L (98-107); Glucose 131 mg/dL (74-99); Non-African American GFR(CKD) >90 (>60 ml/min/1.73 sqM); Potassium 3.7 mmol/L (3.5-5.1); Sodium 135 mmol/L (137-145); Total Protein 5.1 g/dL (6.3-8.2)
[2021-10-24 05:00] LABS: HGB 8.9 gm/dL (13.0-17.5)
[2021-10-24] MEDS ORDERED: POTASSIUM CHLORIDE ER 20 MEQ TAB.ER PO SCH (05:00)
[2021-10-24 05:41] LABS: Glucose,Whole Blood 131 mg/dL (75-99)
[2021-10-24] MEDS: MIDODRINE 5 MG TAB PO SCH ×3 (05:59→16:34)
[2021-10-24 06:35] LABS: Glucose,Whole Blood 104 mg/dL (75-99)
[2021-10-24] MEDS: NOREPINEPHRINE 4 MG in SODIUM CHLORIDE 0.9% 250 ML IV SCH (06:56)
[2021-10-24] MEDS: METOPROLOL TARTRATE 12.5 MG TAB PO SCH ×2 (07:21→21:05)
--- NOTE | 2021-10-24 07:29 | XR ---
EXAMINATION TYPE: XR chest 1V portable DATE OF EXAM: 10/24/2021 COMPARISON: Chest x-ray 10/23/2021 HISTORY: Postop cardiac surgery, chest tube TECHNIQUE: Single frontal view of the chest is obtained. FINDINGS: Right jugular central venous catheter is present with the distal tip in the pulmonary susanna ry. This median sternal drain. 2 left-sided chest tubes are again seen. There are overlying artifacts . No evident pneumothorax or pleural effusion. Patchy basilar density is again noted, the interstitiu m is increased. Cardiac mediastinal silhouette shows a similar appearance, patient is post median inés rnotomy and left atrial appendage clip placement. IMPRESSION: There may be a component of volume overload, interstitial edema, basilar atelectasis, pn eumonia felt to be less likely.
[2021-10-24] MEDS: IPRATROPIUM-ALBUTEROL 3 ML NEB INHALATION SCH ×4 (08:11→21:19)
[2021-10-24 08:18] LABS: Glucose,Whole Blood 134 mg/dL (75-99)
[2021-10-24] MEDS: ASPIRIN 325 MG TAB PO SCH (08:22)
[2021-10-24] MEDS: PANTOPRAZOLE 40 MG/10 ML VIAL IVP SCH (08:23)
[2021-10-24] MEDS: ATORVASTATIN 40 MG TAB PO SCH (08:23)
[2021-10-24] MEDS: CLOPIDOGREL 75 MG TAB PO SCH (08:23)
[2021-10-24] MEDS ORDERED: CALCIUM GLUCONATE 1 GM in SODIUM CHLORIDE 0.9% 100 ML IVPB ONE (09:30)
[2021-10-24] MEDS: guaiFENesin 600 MG TABLET.ER PO SCH ×2 (09:41→21:05)
[2021-10-24] MEDS: NICOTINE 14MG/24HR PATCH TRANSDERM SCH (09:42)
[2021-10-24] MEDS: PANTOPRAZOLE 40 MG TABLET PO SCH (09:42)
[2021-10-24] MEDS: LACTATED RINGERS 1,000 ML IV SCH (09:52)
--- NOTE | 2021-10-24 09:55 | PN ---
PROGRESS NOTE Mr. Murphy is status post aortocoronary bypass surgery. He is doing well, recovering nicely. He is still slightly hypotensive, probably has some vasodilatation. He is on a very small dose of Levophed, making reasonably good amount of urine. He has some pain where the chest tube was taken out from, but he is maintaining sinus rhythm, hemodynamically stable on a very small dose of Levophed. Vitals are stable; 108/60, pulse rate 70, sinus. JVD 1 cm. No carotid bruit. S1-S2 heard normally. Short systolic murmur. Lungs revealed decent air entry. Abdomen and lower extremity exam unchanged. Plan is to continue current medical regimen with incentive spirometry, pulmonary toilet and gradually wean off the Levophed. MMODL / IJN: [id number] /
[2021-10-24 11:18] LABS: Glucose,Whole Blood 141 mg/dL (75-99)
[2021-10-24] MEDS: MAGNESIUM SULFATE-D5W PMX 1 GM in DEXTROSE/WATER 1 100ML.BAG IVPB SCH ×2 (12:00→16:51)
[2021-10-24] MEDS: INSULIN ASPART (NovoLOG) 100 UNIT/ML VIAL SQ SCH ×3 (12:00→21:04)
--- NOTE | 2021-10-24 12:20 | P.PN ---
Subjective Progress Note Date: 10/24/21 Principal diagnosis: Coronary artery disease, non-STEMI this admission. Past medical history significant for current tobacco dependence, mild COPD, hyperlipidemia, ischemic cardiomyopathy, family history of heart failure, and diabetes. Vaccinated, not boosted against Covid-19. POD #2 off-pump coronary artery bypass grafting 2 with left internal thoracic artery to the left anterior descending coronary artery, a reverse greater saphenous vein graft to the posterior descending coronary artery. Endoscopic left greater saphenous vein harvest, left atrial appendage ligation using a 35 mm Atriclip, intraoperative transesophageal echocardiogram and graft flow measurements using the Medistim flow device. Postoperative acute blood loss anemia, expected given hemodilution. The patient was seen in follow-up today 10/24/2021 at his bedside in the intensive care unit. Currently sitting up to the bedside chair, is awake, alert, oriented 3 and is in no acute distress. He denies any complaints of pain or shortness of breath this time. Oxygen saturations are 96% on 6 L nasal cannula. He is achieving 750 mL on his incentive spirometry with encouragement. Bedside telemetry showing sinus tachycardia heart rate 109 BPM. Right IJ Cordis and Sidney-Arcenio catheter remains in place with current hemodynamic showing a cardiac output of 6.6, cardiac index 3.4, PA pressures 36/60, and CVP 7 mmHg. He remains on norepinephrine drip at 0.02 mcg/kg/m for blood pressure support. Mediastinal and left pleural chest tube to remain in place to low continuous wall suction -20 cm H2O. No air leak is present. Draining thin serosanguineous drainage with his mediastinal chest tubes draining 70 ml output in the last 8 hours and 280 mL in the last 24 hours. Left pleural chest tube drained 130 milliliters output in the last 8 hours and 300 mL output in the last 24 hours. Urine output is been 490 mL output in the last 8 hours. The patient was up ambulating in the intensive care unit hallway this morning with minimal assistance from nursing staff and tolerated the block well. Objective - Vital Signs Vital signs: Vital Signs Temp 98.7 F 10/24/21 08:00 Pulse 89 10/24/21 10:00 Resp 15 10/24/21 10:00 BP 104/62 10/24/21 10:00 Pulse Ox 94 L 10/24/21 10:00 Intake & Output 0210/24/21 10/24/21 18:59 06:59 18:59 Intake Total 2078.136 1537.007 346.837 Output Total 1350 1090 280 Balance 728.136 447.007 66.837 Weight 80.8 kg 83 kg Intake: IV 1809.5 807 131 Albumin 1000 CO/CI 50 40 20 Kefzol 100 LR @50mls/hr 550 650 90 Nitro 1.5 Pressure Bag 108 117 21 Intake, IV Titration 268.636 250.007 15.837 Amount Insulin Regular 100 unit 19.098 8.249 0 In Sodium Chloride 0.9% 100 ml @ Per Protocol IV .Q0M [facility] Rx#:[id number] Magnesium Sulfate-D5w Pmx 100 1 gm In Dextrose/Water 1 100ml.bag @ 100 mls/hr IVPB Q1H [facility] Rx#: [id number] Nitroglycerin-D5w Pmx 50 25.325 mg In Dextrose/Water 1 250ml.bag @ 5 MCG/MIN 1.5 mls/hr IV .Q24H [facility] Rx#: [id number] Norepinephrine 4 mg In 124.213 241.758 15.837 Sodium Chloride 0.9% 250 ml @ 0.05 MCG/KG/MIN 14. 573 mls/hr IV .[id number] [facility] Rx#:[id number] Oral 480 200 Output: Chest Tube Drainage 270 270 40 lt pleural 120 170 20 ms x2 150 100 20 Urine 1080 820 240 Other: Voiding Method Indwelling Catheter Indwelling Catheter Indwelling Catheter ABP, PAP, CO, CI - Last Documented Arterial Blood Pressure 99/53 Pulmonary Artery Pressure 32/15 Cardiac Output 6.5 Cardiac Index 3.3 - Exam CONSTITUTIONAL: Sitting up to the bedside chair in the intensive care unit, appears comfortable, cooperative, no apparent acute distress. HEENT: Neck is supple, no JVD, no lymphadenopathy. Right IJ Cordis and Sidney- Arcenio catheter in place and functioning. RESPIRATORY: Lungs sounds essentially clear throughout, diminished to his bilateral bases. Respirations are symmetrical and nonlabored. Currently on 6 L nasal cannula with oxygen saturations 96%. Able to achieve 750 mL on his incentive spirometry. Strong cough. CARDIOVASCULAR: Regular rhythm and rate. S1 and S2 present, negative for S3, gallop or murmur. Sternum is stable. Palpable peripheral pulses bilaterally. No calf pain or tenderness noted. Heart hugger in place with patient demonstrating appropriate use. Knee-high JEANNETTE hose and sequential compression devices in place to his bilateral lower extremities. GASTROINTESTINAL: Abdomen soft, nontender, nondistended. Active bowel sounds present 4 quadrants. Tolerating diet. Passing flatus. No guarding or ri gidity. GENITOURINARY: Peng present draining clear, yellow urine. Output 490 mL in the last 8 hours. INTEGUMENTARY: Skin is warm and dry with no evidence of clubbing or cyanosis. Midline sternal incision clean dry and well approximated, covered with dry intact dressing. Left lower extremity EVH sites well approximated without redness or drainage. NEUROLOGIC: Cranial nerves II through XII intact. No focal deficits. MUSKULOSKELETAL: Able to move all extremities, strength equal bilaterally, generalized weakness. PSYCHIATRIC: Alert and oriented to person place and time, appropriate affect, intact judgment and insight. INVASIVE LINES AND TUBES: Mediastinal/left pleural chest tubes present and connected to low continuous wall suction, no air leaks present. Mediastinal tube with 70 mL of thin serosanguineous drainage overnight, 280 mL output in the last 24 hours. Left pleural chest tube with 130 mL of thin serosanguineous drainage overnight, 300mL output in the last 24 hours. Ventricular epicardial pacemaker wires present, connected to generator, VVI backup rate 50 bpm. Right internal jugular Sidney/Cordis, right radial arterial line present. Last CO 6.6, CI 3.4, PA 236/16 and CVP 7 mmHg. - Allied health notes Allied health notes reviewed: nursing - Labs CBC & Chem 7: 10/24/21 03:30 10/24/21 03:30 Labs: Abnormal Lab Results - Last 24 Hours (Table) 10/23/21 10/23/21 10/23/21 Range/Units 12:36 14:17 15:13 RBC (4.30-5.90) m/uL Hgb (13.0-17.5) gm/dL Hct (39.0-53.0) % Plt Count (150-450) k/uL Lymphocytes # (1.0-4.8) k/uL Sodium (137-145) mmol/L Creatinine (0.66-1.25) mg/dL Glucose (74-99) mg/dL POC Glucose (mg/dL) 108 H 134 H 151 H (75-99) mg/dL Total Bilirubin (0.2-1.3) mg/dL Total Protein (6.3-8.2) g/dL 10/23/21 10/23/21 10/23/21 Range/Units 16:44 17:58 19:15 RBC (4.30-5.90) m/uL Hgb (13.0-17.5) gm/dL Hct (39.0-53.0) % Plt Count (150-450) k/uL Lymphocytes # (1.0-4.8) k/uL Sodium (137-145) mmol/L Creatinine (0.66-1.25) mg/dL Glucose (74-99) mg/dL POC Glucose (mg/dL) 111 H 123 H 135 H (75-99) mg/dL Total Bilirubin (0.2-1.3) mg/dL Total Protein (6.3-8.2) g/dL 10/23/21 10/23/21 10/23/21 Range/Units 20:14 21:27 22:04 RBC (4.30-5.90) m/uL Hgb (13.0-17.5) gm/dL Hct (39.0-53.0) % Plt Count (150-450) k/uL Lymphocytes # (1.0-4.8) k/uL Sodium (137-145) mmol/L Creatinine (0.66-1.25) mg/dL Glucose (74-99) mg/dL POC Glucose (mg/dL) 171 H 145 H 121 H (75-99) mg/dL Total Bilirubin (0.2-1.3) mg/dL Total Protein (6.3-8.2) g/dL 10/24/21 10/24/21 10/24/21 Range/Units 00:14 01:58 03:29 RBC (4.30-5.90) m/uL Hgb (13.0-17.5) gm/dL Hct (39.0-53.0) % Plt Count (150-450) k/uL Lymphocytes # (1.0-4.8) k/uL Sodium (137-145) mmol/L Creatinine (0.66-1.25) mg/dL Glucose (74-99) mg/dL POC Glucose (mg/dL) 106 H 112 H 145 H (75-99) mg/dL Total Bilirubin (0.2-1.3) mg/dL Total Protein (6.3-8.2) g/dL 10/24/21 10/24/21 10/24/21 Range/Units 03:30 03:30 05:40 RBC 2.72 L (4.30-5.90) m/uL Hgb 8.9 L D (13.0-17.5) gm/dL Hct 25.7 L (39.0-53.0) % Plt Count 83 L (150-450) k/uL Lymphocytes # 0.5 L (1.0-4.8) k/uL Sodium 135 L (137-145) mmol/L Creatinine 0.59 L (0.66-1.25) mg/dL Glucose 131 H (74-99) mg/dL POC Glucose (mg/dL) 131 H (75-99) mg/dL Total Bilirubin 2.0 H (0.2-1.3) mg/dL Total Protein 5.1 L (6.3-8.2) g/dL 10/24/21 10/24/21 10/24/21 Range/Units 06:33 08:17 11:16 RBC (4.30-5.90) m/uL Hgb (13.0-17.5) gm/dL Hct (39.0-53.0) % Plt Count (150-450) k/uL Lymphocytes # (1.0-4.8) k/uL Sodium (137-145) mmol/L Creatinine (0.66-1.25) mg/dL Glucose (74-99) mg/dL POC Glucose (mg/dL) 104 H 134 H 141 H (75-99) mg/dL Total Bilirubin (0.2-1.3) mg/dL Total Protein (6.3-8.2) g/dL - Imaging and Cardiology Chest x-ray: report reviewed, image reviewed Assessment and Plan Assessment: 1. Coronary artery disease, status post off-pump 2 vessel coronary artery bypass grafting surgery 2. Non-STEMI this admission 3. Current tobacco dependence 4. Mild COPD with FEV1 65% of predicted 5. Hyperlipidemia, untreated, cholesterol 174, LDL 107 6. Ischemic cardiomyopathy, EF 30-35% with apical LV wall hypokinesis 7. Family history of heart failure, and diabetes 8. Vaccinated, not boosted against Covid-19 Plan: 1. Continue aspirin, statin, Plavix and beta cuco. We will increase metoprolol tartrate as tolerated. 2. Wean O2 as tolerated. Encourage incentive spirometry 10 times every hour while awake. Bronchodilators per pulmonology. 3. Increase activity, ambulate as tolerated. PT/OT/cardiac rehab following. 4. GI/DVT prophylaxis. 5. Pain control with current medication regimen. Discontinue [place] and place on acetaminophen 1000 mg by mouth every 6 hours when necessary pain. 6. Will monitor daily labs and chest x-rays. Electrolyte replacement per protocol. 7. Insulin management per primary care service. Patient is not diabetic, preoperative hemoglobin A1c 6.0%, however patient does need tight blood sugar control to prevent infection and promote sternal union 8. Removal Sidney-Arcenio catheter, Alexei right IJ Cordis in place to continuous CVP monitoring. Discontinue norepinephrine drip. 9. Mediastinal left pleural chest tubes removed without incident. 10. Remove Peng catheter, continue to record strict accurate intake and output. Daily weights. 11. Keep ventricular epicardial pacemaker wires in place, we will ground to the pacemaker wires. 12. Continue Midodrine 10 mg PO TID. 13. Nicotine patch 14mg/24 hrs started. The importance of risk modification including smoking cessation and discussed with patient. 14. More recommendations to follow based on patient's clinical course. Time with Patient: Greater than 30
--- NOTE | 2021-10-24 12:53 | P.PN ---
Subjective Progress Note Date: 10/24/21 This is a 71-year-old white male patient of Dr. Marty Pal with past history of chronic and ongoing tobacco dependence, patient carries over [id number] smoking history, daily marijuana use, family history of heart failure, and diabetes mellitus. Patient is not on any home medications. He presented to the emergency department on 10/17/2021 when he was awoken out of his sleep at 4:00 in the morning with chest pain radiating to his left arm. Patient was not complaining of any shortness of breath, his chest pain she described as dull and achy with pressure on the left side. There was associated with some nausea and sweating. His EKG shows sinus rhythm with a rate of 68 BPM with no significant ST or T-wave changes. His chest x-ray was negative for any acute process. His troponins were 0.026, 1.440, 2.450, 0.601. The rest of his blood work has been reviewed showing CBC within normal limits, electrolytes and renal profile were unremarkable, LFTs were unremarkable, his lipid profile was unremarkable with the exception of HDL which was 37.6. Urinalysis showed 1+ glucose, and the rest was within normal limits, COVID-19 PCR was negative. Patient had a cardiac catheterization and was found to have severe triple-vessel disease with subtotal 99% LAD stenosis extending to the ostium and followed by an aneurysm formation, total occlusion of the first diagonal, 70% stenosis of the circumflex, critical lesion proximally in the RCA and total occlusion in the midportion with collateral flow. Patient was referred to CT surgery for evaluation for possibility of coronary artery bypass grafting surgery. On 10/20/2021 patient seen in follow-up on selective care unit, she is resting comfortably in bed, has had no episodes of chest pain overnight, he remains on heparin infusion. Lung sounds are clear to auscultation, no dyspnea, no cough, no fever or chills, no complaints of chest discomfort. Preop FEV1 was 65% of predicted. Patient was evaluated by CT surgery, and the plan is to proceed with off-pump myocardial revascularization ANGELES, endovascular vein harvest, and left atrial appendage ligation on on 2021. On 10/21/2021 patient seen in follow-up on selective care unit, he had an uneventful night, breathing comfortably, no complaints of chest pain, tolerating ambulation in the hallway, room air pulse ox is 95%, he is achieving 5227-0190 mL on the incentive spirometer, no fever or chills, no compressive chest discomfort, no coughing or wheezing. Today's labs have been reviewed, CBC is unremarkable, electrodes renal profile are within normal limits. Patient was reevaluated today on 10/18/2021, patient is status post 2 vessel bypass surgery, off pump, patient is now in the ICU intubated and mechanically ventilated. Patient is on tidal volume of 550 assist-control rate of 14 FiO2 100% PEEP of 5. Patient is requiring norepinephrine at 0.03 mcg/kg/m, patient is on nitroglycerin drip at 5 mcg/m, is also on propofol at 20 mcg/kg/m. His cardiac output is 3.5, cardiac index is 1.8, patient is sedated, and he has a mediastinal chest tube in the left pleural chest tube in place. No significant bleeding is noted. ABG today showed a pO2 of more than 400 pCO2 of 46 pH of 7.33, rate was increased from 14-16, FiO2 cut down to 45%. Chest x-ray showed adequate placement of the endotracheal tube, and adequate placement of the different chest tubes, no acute process is noted. On 10/23/2021 patient seen in follow-up in the intensive care unit. Today is postoperative day #1, status post off-pump two-vessel coronary artery bypass grafting surgery, endoscopic left greater saphenous vein harvest, left atrial appendage ligation. Patient was successfully weaned and extubated within just under 5 hours from OR exit time. Postoperatively patient had hypotension, patient received fluid resuscitation, and he has received 1.5 L and 5% albumin preoperatively, 1 L of albumin postoperatively, and 750 ML of 5% albumin this morning. No significant bleeding out of the chest tubes. Patient is currently sitting up in a chair, breathing fairly comfortably, he is having some postoperative pain which is currently better controlled with medications. He is on 4 L per nasal cannula and his pulse ox is 95%. His chest x-ray today shows post thoracotomy changes, left chest tube in place with the possibility of a tiny 4 mm left apical pneumothorax, some patchy interstitial changes in the lower lungs that could relate to atelectasis or pulmonary vascular congestion. Patient is using incentive spirometer, achieving 750 on it today. Patient is currently on lactated Ringer's at 50 ML per hour, norepinephrine at 0.02 mics per kilo per minute. Insulin infusion is at 2 units per hour. Nitroglycerin drip is currently off, patient is in sinus mechanism with a rate of 86 BPM, V wires are in place, with VVI backup of 50 BPM. Currently blood pressure is 87/38, PA pressure is 22/8, cardiac output is 6.9 and index is 3.5. Sternal incision is clean dry and intact, 2 mediastinal chest tubes are connected to the Pleur-evac with 650 ML sanguineous output since surgery, left pleural chest tube was 350 ML of sanguinous output since surgery. urine output is 35-45 ML per hour this morning. This morning's labs have been reviewed, white blood cell cou nt is 6.9, hemoglobin is 10.8, platelet count is 110, serum sodium is 134, the rest of electrolytes and renal profile were unremarkable, LFTs were within normal limits. 10/24/2021, the patient is postop day #2 and the patient is currently being seen in follow-up in the intensive care unit. The patient underwent an off-pump two- vessel bypass surgery. The patient was weaned off the mechanical ventilator and the patient was extubated blood any major difficulties. The patient for now is hemodynamically stable. Norepinephrine infusion is running at 0.02 microvascular kilogram per minute. The patient is a cardiac output of 6.6 with an index of 3.3. Pulmonary pressures are 25 over 17 mmHg. The patient has still 2 mediastinal chest tubes and a left pleural chest tube. Output from the chest tubes are quite low at this point in time. The patient using incentive spirometer and the patient is pulling approximately 750 mL and the patient remains on 6 L about 2 by nasal cannula pulse ox of 96%. Chest x-ray from today shows no evidence of any pneumothorax. There is some atelectatic changes small effusion the lung bases bilaterally. Urine output is adequate in the order of 60-70 mL an hour. The patient has no specific complaints. Most of the 15 chest wall pain. Cardiac rhythm is sinus. No other significant issues over the past 24 hours. He is afebrile hemodynamically stable. Objective - Vital Signs Vital signs: Vital Signs Temp 98.4 F 10/24/21 12:11 Pulse 98 10/24/21 12:11 Resp 13 10/24/21 12:11 BP 86/53 10/24/21 12:11 Pulse Ox 94 L 10/24/21 12:11 Intake & Output 10/23/21 10/24/21 10/24/21 18:59 06:59 18:59 Intake Total 2078.136 1537.007 546.837 Output Total 1350 1090 330 Balance 728.136 447.007 216.837 Weight 80.8 kg 83 kg Intake: IV 1809.5 807 331 Albumin 1000 CO/CI 50 40 20 Calcium Gluconate 1 gm In 100 Sodium Chloride 0.9% 100 ml @ 100 mls/hr IVPB ONCE ONE Rx#:[id number] Kefzol 100 LR @50mls/hr 550 650 90 Magnesium Sulfate-D5w Pmx 100 1 gm In Dextrose/Water 1 100ml.bag @ 100 mls/hr IVPB Q1H [facility] Rx#: [id number] Nitro 1.5 Pressure Bag 108 117 21 Intake, IV Titration 268.636 250.007 15.837 Amount Insulin Regular 100 unit 19.098 8.249 0 In Sodium Chloride 0.9% 100 ml @ Per Protocol IV .Q0M [facility] Rx#:[id number] Magnesium Sulfate-D5w Pmx 100 1 gm In Dextrose/Water 1 100ml.bag @ 100 mls/hr IVPB Q1H [facility] Rx#: [id number] Nitroglycerin-D5w Pmx 50 25.325 mg In Dextrose/Water 1 250ml.bag @ 5 MCG/MIN 1.5 mls/hr IV .Q24H [facility] Rx#: [id number] Norepinephrine 4 mg In 124.213 241.758 15.837 Sodium Chloride 0.9% 250 ml @ 0.05 MCG/KG/MIN 14. 573 mls/hr IV .[id number] [facility] Rx#:[id number] Oral 480 200 Output: Chest Tube Drainage 270 270 40 lt pleural 120 170 20 ms x2 150 100 20 Urine 1080 820 290 Other: Voiding Method Indwelling Catheter Indwelling Catheter Indwelling Catheter ABP, PAP, CO, CI - Last Documented Arterial Blood Pressure 99/53 Pulmonary Artery Pressure 32/15 Cardiac Output 6.5 Cardiac Index 3.3 - Exam CONSTITUTIONAL: Sitting up to the bedside chair in the intensive care unit, appears comfortable, cooperative, no apparent acute distress. HEENT: Neck is supple, no JVD, no lymphadenopathy. Right IJ Cord[place] and [place]- [place]io catheter in place and functioning. RESPIRATORY: Lungs sounds essentially clear throughout, diminished to his bilateral bases. Respirations are symmetrical and nonlabored. Currently on 6 L nasal cannula with oxygen saturations 96%. Able to achieve 750 mL on his incentive spirometry. Strong cough. CARDIOVASCULAR: Regular rhythm and rate. S1 and S2 present, negative for S3, gallop or murmur. Sternum is stable. Palpable peripheral pulses bilaterally. No calf pain or tenderness noted. Heart hugger in place with patient demonstrating appropriate use. Knee-high JEANNETTE hose and sequential compression devices in place to his bilateral lower extremities. GASTROINTESTINAL: Abdomen soft, nontender, nondistended. Active bowel sounds present 4 quadrants. Tolerating diet. Passing flatus. No guarding or rigidity. GENITOURINARY: Peng present draining clear, yellow urine. Output 490 mL in the last 8 hours. INTEGUMENTARY: Skin is warm and dry with no evidence of clubbing or cyanosis. Midline sternal incision clean dry and well approximated, covered with dry intact dressing. Left lower extremity EVH sites well approximated without r edness or drainage. NEUROLOGIC: Cranial nerves II through XII intact. No focal deficits. MUSKULOSKELETAL: Able to move all extremities, strength equal bilaterally, generalized weakness. PSYCHIATRIC: Alert and oriented to person place and time, appropriate affect, intact judgment and insight. INVASIVE LINES AND TUBES: Mediastinal/left pleural chest tubes present and connected to low continuous wall suction, no air leaks present. Mediastinal tube with 70 mL of thin serosanguineous drainage overnight, 280 mL output in the last 24 hours. Left pleural chest tube with 130 mL of thin serosanguineous drainage overnight, 300mL output in the last 24 hours. Ventricular epicardial pacemaker wires present, connected to generator, VVI backup rate 50 bpm. Right internal jugular [place], right radial arterial line present. Last CO 6.6, CI 3.4, PA 236/16 and CVP 7 mmHg. - Labs CBC & Chem 7: 10/24/21 03:30 10/24/21 03:30 Labs: Abnormal Lab Results - Last 24 Hours (Table) 10/23/21 10/23/21 10/23/21 Range/Units 14:17 15:13 16:44 RBC (4.30-5.90) m/uL Hgb (13.0-17.5) gm/dL Hct (39.0-53.0) % Plt Count (150-450) k/uL Lymphocytes # (1.0-4.8) k/uL Sodium (137-145) mmol/L Creatinine (0.66-1.25) mg/dL Glucose (74-99) mg/dL POC Glucose (mg/dL) 134 H 151 H 111 H (75-99) mg/dL Total Bilirubin (0.2-1.3) mg/dL Total Protein (6.3-8.2) g/dL 10/23/21 10/23/21 10/23/21 Range/Units 17:58 19:15 20:14 RBC (4.30-5.90) m/uL Hgb (13.0-17.5) gm/dL Hct (39.0-53.0) % Plt Count (150-450) k/uL Lymphocytes # (1.0-4.8) k/uL Sodium (137-145) mmol/L Creatinine (0.66-1.25) mg/dL Glucose (74-99) mg/dL POC Glucose (mg/dL) 123 H 135 H 171 H (75-99) mg/dL Total Bilirubin (0.2-1.3) mg/dL Total Protein (6.3-8.2) g/dL 10/23/21 10/23/21 10/24/21 Range/Units 21:27 22:04 00:14 RBC (4.30-5.90) m/uL Hgb (13.0-17.5) gm/dL Hct (39.0-53.0) % Plt Count (150-450) k/uL Lymphocytes # (1.0-4.8) k/uL Sodium (137-145) mmol/L Creatinine (0.66-1.25) mg/dL Glucose (74-99) mg/dL POC Glucose (mg/dL) 145 H 121 H 106 H (75-99) mg/dL Total Bilirubin (0.2-1.3) mg/dL Total Protein (6.3-8.2) g/dL 10/24/21 10/24/21 10/24/21 Range/Units 01:58 03:29 03:30 RBC 2.72 L (4.30-5.90) m/uL Hgb 8.9 L D (13.0-17.5) gm/dL Hct 25.7 L (39.0-53.0) % Plt Count 83 L (150-450) k/uL Lymphocytes # 0.5 L (1.0-4.8) k/uL Sodium (137-145) mmol/L Creatinine (0.66-1.25) mg/dL Glucose (74-99) mg/dL POC Glucose (mg/dL) 112 H 145 H (75-99) mg/dL Total Bilirubin (0.2-1.3) mg/dL Total Protein (6.3-8.2) g/dL 10/24/21 10/24/21 10/24/21 Range/Units 03:30 05:40 06:33 RBC (4.30-5.90) m/uL Hgb (13.0-17.5) gm/dL Hct (39.0-53.0) % Plt Count (150-450) k/uL Lymphocytes # (1.0-4.8) k/uL Sodium 135 L (137-145) mmol/L Creatinine 0.59 L (0.66-1.25) mg/dL Glucose 131 H (74-99) mg/dL POC Glucose (mg/dL) 131 H 104 H (75-99) mg/dL Total Bilirubin 2.0 H (0.2-1.3) mg/dL Total Protein 5.1 L (6.3-8.2) g/dL 10/24/21 10/24/21 Range/Units 08:17 11:16 RBC (4.30-5.90) m/uL Hgb (13.0-17.5) gm/dL Hct (39.0-53.0) % Plt Count (150-450) k/uL Lymphocytes # (1.0-4.8) k/uL Sodium (137-145) mmol/L Creatinine (0.66-1.25) mg/dL Glucose (74-99) mg/dL POC Glucose (mg/dL) 134 H 141 H (75-99) mg/dL Total Bilirubin (0.2-1.3) mg/dL Total Protein (6.3-8.2) g/dL Assessment and Plan Plan: #1. Multivessel coronary artery disease, with severe triple-vessel disease with subtotal 99% LAD stenosis, 100% occlusion of the first diagonal, 70% occlusion of the circumflex, critical stenosis of the RCA proximally and total occlusion in the midportion, with collateral flow. S/P Off pump 2 vessel CABG with ANGELES to the LAD, SVG to the PDA, endoscopic greater saphenous vein harvest, and left atrial exclusion on 10/22/2021, the patient has been extubated successfully major difficulties. The patient remains on low-dose norepinephrine infusion for hemodynamic support and can be easily weaned off. Cardiac output and index are adequate with adequate filling pressures. #2. Acute non-ST elevated myocardial infarction #3. Post thoracotomy, extubated without any major difficulties. The patient continues to have chest tubes in place with diminished output. No evidence of any pneumothorax. #4. Post-op hypotension, likely hypovolemic, currently on small dose of norepinephrine, hemodynamically stable with adequate cardiac output and index. #5. Chronic and ongoing history of smoking, carries [id number] smoking history, preop FEV1 was 65% of predicted #6. Daily marijuana smoker #7. Ischemic cardiomyopathy with EF of 30-35% Plan: Will remove the chest tubes We'll wean off the norepinephrine infusion and discontinue Will monitor hemodynamics. Hemodynamically parameters are stable for now. [place] catheter can be removed at a later stage. Remove the Peng catheter. Patient was started on midodrine 10 mg by mouth 3 times a day Continue aspirin and Plavix Metoprolol will be started low dose continue using incentive spirometer we'll be asking the patient to ambulate at a later stage we'll continue to follow make further recommendations based on his progress. He'll be staying in ICU for another 24 hours.
[2021-10-24 16:26] LABS: Glucose,Whole Blood 91 mg/dL (75-99)
[2021-10-24] MEDS: ACETAMINOPHEN TAB 500 MG TAB PO PRN (16:33)
[2021-10-24 20:56] LABS: Glucose,Whole Blood 122 mg/dL (75-99)
[2021-10-24] MEDS: SENNOSIDES-DOCUSATE SODIUM 1 EACH TAB PO SCH (21:05)
--- NOTE | 2021-10-24 22:21 | P.PN ---
Subjective Progress Note Date: 10/24/21 This is a 71-year-old gentleman admitted with acute non-STEMI. Status post cardiac catheterization reporting multi-vessel CAD with severe triple vessel disease with subtotal 99% LAD stenosis, 100% occlusion of the first diagonal, 70% occlusion of the circumflex, critical stenosis of the RCA proximally and total occlusion in the midportion, with collateral flow. . Anticoagulated on heparin drip, scheduled for CABG on . Denies chest pain, palpitations or shortness of breath. Maintaining O2 sats in the 90s on room air. 10/21/2021 had episode of heartburn last night, resolved with additional PPI with no reoccurrence. Denies chest pain, palpitations or shortness of breath. Afebrile. Maintaining O2 sats in the high 90s on room air. Chest x-ray pending. Labs pending. 10/23/21 status post CABG, postop day #1. Extubated yesterday. Left pleural chest tube 320ml, mediastinal X 2 630mls output since surgery. Hypotensive, received IV fluid resuscitation/albumin yesterday and this morning maintained on levophed and insulin drips. CO/CI 6.9/3.5. Telemetry sinus rhythm. Complains of pain at chest tube insertion sites, Toradol has been ordered. Incentive spirometer 900. Chest x-ray noted. Maintaining O2 sats in the mid 90s on 4 L nasal cannula. Afebrile, WBC 6.9, hemoglobin 10.8, platelets 110. Sodium 134, potassium 4.2, magnesium 1.7 .Renal function stable. 10/24/2021 Patient is currently in the MICU. Lying in the bed comfortably. Awake alert and oriented x3. Status post CABG postoperative day 2. Off mechanical ventilator. Patient does have mediastinal and left pleural chest tube in place. Participating in incentive spirometry. Chest x-ray showed there may be a component of volume overload., Interstitial edema, bilateral atelectasis, pneumonia of left less likely. Laboratory showed WBC 5.0 hemoglobin 8.9 and platelets 83 sodium 135 potassium 3.7 chloride 105 bicarb is 24 BUN 10 and creatinine 0.59 Patient is being continued on aspirin, statins and Plavix and metoprolol. Also on midodrine 10 mg 3 times daily. Cardiology pulmonary and CT surgery is on board. Patient is able to ambulate in the room and tolerating oral diet. Afebrile. No complaints of cough or sputum production. No nausea vomiting or abdominal pain or diarrhea. Current medications reviewed. Objective - Vital Signs Vital signs: Vital Signs Temp 98.4 F 10/24/21 12:11 Pulse 92 10/24/21 13:00 Resp 16 10/24/21 13:00 BP 82/58 10/24/21 13:00 Pulse Ox 96 10/24/21 13:00 Intake & Output 10/23/21 10/24/21 10/24/21 18:59 06:59 18:59 Intake Total 2078.136 1537.007 546.837 Output Total 1350 1090 330 Balance 728.136 447.007 216.837 Weight 80.8 kg 83 kg Intake: IV 1809.5 807 331 Albumin 1000 CO/CI 50 40 20 Calcium Gluconate 1 gm In 100 Sodium Chloride 0.9% 100 ml @ 100 mls/hr IVPB ONCE ONE Rx#:[id number] Kefzol 100 LR @50mls/hr 550 650 90 Magnesium Sulfate-D5w Pmx 100 1 gm In Dextrose/Water 1 100ml.bag @ 100 mls/hr IVPB Q1H [facility] Rx#: [id number] Nitro 1.5 Pressure Bag 108 117 21 Intake, IV Titration 268.636 250.007 15.837 Amount Insulin Regular 100 unit 19.098 8.249 0 In Sodium Chloride 0.9% 100 ml @ Per Protocol IV .Q0M [facility] Rx#:[id number] Magnesium Sulfate-D5w Pmx 100 1 gm In Dextrose/Water 1 100ml.bag @ 100 mls/hr IVPB Q1H [facility] Rx#: [id number] Nitroglycerin-D5w Pmx 50 25.325 mg In Dextrose/Water 1 250ml.bag @ 5 MCG/MIN 1.5 mls/hr IV .Q24H [facility] Rx#: [id number] Norepinephrine 4 mg In 124.213 241.758 15.837 Sodium Chloride 0.9% 250 ml @ 0.05 MCG/KG/MIN 14. 573 mls/hr IV .[id number] [facility] Rx#:[id number] Oral 480 200 Output: Chest Tube Drainage 270 270 40 lt pleural 120 170 20 ms x2 150 100 20 Urine 1080 820 290 Other: Voiding Method Indwelling Catheter Indwelling Catheter Indwelling Catheter ABP, PAP, CO, CI - Last Documented Arterial Blood Pressure 99/53 Pulmonary Artery Pressure 32/15 Cardiac Output 6.5 Cardiac Index 3.3 - Exam PHYSICAL EXAMINATION: Patient is lying in the bed comfortably, no acute distress, awake alert and oriented.. HEENT: Normocephalic. Neck is supple. Pupils reactive. Nostrils clear. Oral cavity is moist. Neck reveals no JVD, carotid bruits, or thyromegaly. CHEST EXAMINATION: Trachea is central. Symmetrical expansion. Bibasilar diminished sounds. Chest tubes inplace. heart hugger in place CARDIAC: Normal S1, S2 with no gallops. No murmurs ABDOMEN: Soft. Bowel sounds normal. No organomegaly. No abdominal bruits. Extremities: reveal no edema. No clubbing or cyanosis Neurologically awake, alert, oriented x3 with well-coordinated movements. No focal deficits noted Skin: No rash or skin lesions. Psychiatric: Cooperative. Nonsuicidal Musculoskeletal: No joint swelling or deformity. Normal range of motion. - Labs CBC & Chem 7: 10/24/21 03:30 10/24/21 03:30 Labs: Abnormal Lab Results - Last 24 Hours (Table) 10/23/21 10/23/21 10/23/21 Range/Units 15:13 16:44 17:58 RBC (4.30-5.90) m/uL Hgb (13.0-17.5) gm/dL Hct (39.0-53.0) % Plt Count (150-450) k/uL Lymphocytes # (1.0-4.8) k/uL Sodium (137-145) mmol/L Creatinine (0.66-1.25) mg/dL Glucose (74-99) mg/dL POC Glucose (mg/dL) 151 H 111 H 123 H (75-99) mg/dL Total Bilirubin (0.2-1.3) mg/dL Total Protein (6.3-8.2) g/dL 10/23/21 10/23/21 10/23/21 Range/Units 19:15 20:14 21:27 RBC (4.30-5.90) m/uL Hgb (13.0-17.5) gm/dL Hct (39.0-53.0) % Plt Count (150-450) k/uL Lymphocytes # (1.0-4.8) k/uL Sodium (137-145) mmol/L Creatinine (0.66-1.25) mg/dL Glucose (74-99) mg/dL POC Glucose (mg/dL) 135 H 171 H 145 H (75-99) mg/dL Total Bilirubin (0.2-1.3) mg/dL Total Protein (6.3-8.2) g/dL 10/23/21 10/24/21 10/24/21 Range/Units 22:04 00:14 01:58 RBC (4.30-5.90) m/uL Hgb (13.0-17.5) gm/dL Hct (39.0-53.0) % Plt Count (150-450) k/uL Lymphocytes # (1.0-4.8) k/uL Sodium (137-145) mmol/L Creatinine (0.66-1.25) mg/dL Glucose (74-99) mg/dL POC Glucose (mg/dL) 121 H 106 H 112 H (75-99) mg/dL Total Bilirubin (0.2-1.3) mg/dL Total Protein (6.3-8.2) g/dL 10/24/21 10/24/21 10/24/21 Range/Units 03:29 03:30 03:30 RBC 2.72 L (4.30-5.90) m/uL Hgb 8.9 L D (13.0-17.5) gm/dL Hct 25.7 L (39.0-53.0) % Plt Count 83 L (150-450) k/uL Lymphocytes # 0.5 L (1.0-4.8) k/uL Sodium 135 L (137-145) mmol/L Creatinine 0.59 L (0.66-1.25) mg/dL Glucose 131 H (74-99) mg/dL POC Glucose (mg/dL) 145 H (75-99) mg/dL Total Bilirubin 2.0 H (0.2-1.3) mg/dL Total Protein 5.1 L (6.3-8.2) g/dL 10/24/21 10/24/21 10/24/21 Range/Units 05:40 06:33 08:17 RBC (4.30-5.90) m/uL Hgb (13.0-17.5) gm/dL Hct (39.0-53.0) % Plt Count (150-450) k/uL Lymphocytes # (1.0-4.8) k/uL Sodium (137-145) mmol/L Creatinine (0.66-1.25) mg/dL Glucose (74-99) mg/dL POC Glucose (mg/dL) 131 H 104 H 134 H (75-99) mg/dL Total Bilirubin (0.2-1.3) mg/dL Total Protein (6.3-8.2) g/dL 10/24/21 Range/Units 11:16 RBC (4.30-5.90) m/uL Hgb (13.0-17.5) gm/dL Hct (39.0-53.0) % Plt Count (150-450) k/uL Lymphocytes # (1.0-4.8) k/uL Sodium (137-145) mmol/L Creatinine (0.66-1.25) mg/dL Glucose (74-99) mg/dL POC Glucose (mg/dL) 141 H (75-99) mg/dL Total Bilirubin (0.2-1.3) mg/dL Total Protein (6.3-8.2) g/dL Assessment and Plan Assessment: Acute non-STEMI with severe triple vessel disease, status post CABG. POD # 2 Hypovolemic hypotension, pressor dependent Ischemic cardiomyopathy, EF 30-35% with apical left ventricular wall hypokinesis COPD Ongoing nicotine dependence Daily marijuana Plan: Continue on current medication regime ,monitoring and symptomatic treatment. Aggressive pulmonary toileting with incentive spirometer reinforced. Pain management. Prognosis guarded given multiple complex medical issues.
[2021-10-25 04:20] LABS: Basophils % (A) 0 %; Eosinophils % (A) 0 %; HCT 25.8 % (39.0-53.0); HGB 8.7 gm/dL (13.0-17.5); Lymphocytes # (A) 0.6 k/uL (1.0-4.8); Lymphocytes % (A) 12 %; MCHC 33.7 g/dL (31.0-37.0); Mean Platelet Volume 7.3; Monocytes # (A) 0.3 k/uL (0-1.0); Monocytes % (A) 5 %; Neutrophils # (A) 4.2 k/uL (1.3-7.7); Neutrophils % (A) 80 %; Platelet Count 104 k/uL (150-450); RBC 2.71 m/uL (4.30-5.90); WBC 5.2 k/uL (3.8-10.6)
[2021-10-25 04:28] LABS: ALT 23 U/L (4-49); AST 30 U/L (17-59); African American GFR (CKD) >90 (>60 ml/min/1.73 sqM); Albumin 3.2 g/dL (3.5-5.0); Alkaline Phosphatase 54 U/L (38-126); Anion Gap 2 mmol/L; Blood Urea Nitrogen 11 mg/dL (9-20); Calcium 8.1 mg/dL (8.4-10.2); Carbon Dioxide 27 mmol/L (22-30); Chloride 106 mmol/L (98-107); Glucose 130 mg/dL (74-99); Magnesium 1.9 mg/dL (1.6-2.3); Non-African American GFR(CKD) >90 (>60 ml/min/1.73 sqM); Potassium 3.7 mmol/L (3.5-5.1); Sodium 135 mmol/L (137-145); Total Bilirubin 1.9 mg/dL (0.2-1.3); Total Protein 5.1 g/dL (6.3-8.2)
[2021-10-25] MEDS: MAGNESIUM SULFATE-D5W PMX 1 GM in DEXTROSE/WATER 1 100ML.BAG IVPB SCH ×2 (05:43→07:48)
[2021-10-25] MEDS ORDERED: AMIODARONE IN DEXTROSE,ISO-OSM 150 MG/100 ML PLAST..BAG IV ONE ×2 (05:48→09:30)
[2021-10-25] MEDS: DEXTROSE 5% IN WATER 100 ML with AMIODARONE 150 MG IV PRN ×2 (05:48→09:30)
[2021-10-25] MEDS ORDERED: POTASSIUM CHLORIDE ER 20 MEQ TAB.ER PO SCH (06:00)
[2021-10-25] MEDS ORDERED: DEXTROSE 5% IN WATER 100 ML with AMIODARONE 150 MG IV ONE (06:30)
[2021-10-25] MEDS ORDERED: AMIODARONE 360 MG in DEXTROSE 5% IN WATER 200 ML IV ONE ×2 (06:40)
[2021-10-25] MEDS ORDERED: FUROSEMIDE 10 MG/ML 2 ML VIAL IV ONE ×2 (07:15→09:00)
[2021-10-25 07:39] LABS: Glucose,Whole Blood 179 mg/dL (75-99)
--- NOTE | 2021-10-25 07:39 | XR ---
EXAMINATION TYPE: XR chest 1V portable DATE OF EXAM: 10/25/2021 COMPARISON: Chest x-ray 10/24/2021 HISTORY: Status post coronary artery bypass graft TECHNIQUE: Single frontal view of the chest is obtained. FINDINGS: Patient is post median sternotomy and left atrial appendage clip placement. Left-sided selin st tube has been removed in the interval. No sizable pneumothorax. Right jugular central venous christelle ter is no longer seen, central venous sheath thought to be in place. Airspace disease is present at t he right lung base, patchy density also present on the left along the hemidiaphragm. Cardiac mediasti nal silhouette is stable. Right costophrenic angles not included on exam. Interstitium is increased. There are overlying artifacts. IMPRESSION: No evident complication status post chest tube removal. Correlate for pneumonia versus e ty, atelectasis
[2021-10-25] MEDS: MIDODRINE 5 MG TAB PO SCH ×3 (07:47→16:48)
[2021-10-25] MEDS: PANTOPRAZOLE 40 MG TABLET PO SCH (07:47)
[2021-10-25] MEDS: INSULIN ASPART (NovoLOG) 100 UNIT/ML VIAL SQ SCH ×4 (07:47→20:11)
[2021-10-25] MEDS: guaiFENesin 600 MG TABLET.ER PO SCH ×2 (08:35→20:10)
[2021-10-25] MEDS: NICOTINE 14MG/24HR PATCH TRANSDERM SCH (08:35)
[2021-10-25] MEDS: HEPARIN SODIUM,PORCINE/PF 5,000 UNIT/0.5 ML SYRINGE SQ SCH ×3 (08:35→23:07)
[2021-10-25] MEDS: ATORVASTATIN 40 MG TAB PO SCH (08:36)
[2021-10-25] MEDS: ASPIRIN 325 MG TAB PO SCH (08:36)
[2021-10-25] MEDS: CLOPIDOGREL 75 MG TAB PO SCH (08:36)
[2021-10-25] MEDS: TAMSULOSIN 0.4 MG CAP.ER.24H PO SCH (08:36)
[2021-10-25] MEDS ORDERED: METOPROLOL TARTRATE 25 MG TAB PO SCH ×2 (09:00→21:00)
[2021-10-25] MEDS: IPRATROPIUM-ALBUTEROL 3 ML NEB INHALATION SCH ×4 (09:04→19:35)
--- NOTE | 2021-10-25 09:22 | P.PN ---
Subjective Progress Note Date: 10/25/21 Principal diagnosis: Coronary artery disease, non-STEMI this admission. Past medical history significant for current tobacco dependence, mild COPD, hyperlipidemia, ischemic cardiomyopathy, family history of heart failure, and diabetes. Vaccinated, not boosted against Covid-19. POD #3 off-pump coronary artery bypass grafting 2 with left internal thoracic artery to the left anterior descending coronary artery, a reverse greater saphenous vein graft to the posterior descending coronary artery. Endoscopic left greater saphenous vein harvest, left atrial appendage ligation using a 35 mm Atriclip, intraoperative transesophageal echocardiogram and graft flow measurements using the Medistim flow device. Postoperative acute blood loss anemia, expected given hemodilution. Postoperative paroxysmal atrial fibrillation, a known common occurrence after cardiac surgery. The patient was seen in follow-up today 10/25/2021 at his bedside in the intensive care unit. Currently living in bed, with his head elevated, he is awake, alert and oriented 3. He is in no acute apparent distress. Bedside telemetry showing atrial fibrillation heart rate 116 BPM. Amiodarone drip per protocol was initiated and is currently infusing at 0.5 mg/m. He remains hemodynamically stable and is currently on no inotropic or pressor support. Oxygen saturations are 94% on 4 L nasal cannula and he is achieving 1665-2680 mL on his incentive spirometry. Right IJ Cordis remains in place with continuous CVP monitoring, current CVP pressure 10 mmHg. The patient reports he was having some urinary retention throughout the night requiring placement of a Peng catheter. Urine output last 8 hours was 950 mL. He reports he has been up ambulating in the intensive care unit hallway with minimal assistance from nursing and therapy staff. Objective - Vital Signs Vital signs: Vital Signs Temp 98.6 F 10/25/21 08:00 Pulse 146 H 10/25/21 08:00 Resp 21 10/25/21 08:00 BP 91/68 10/25/21 08:00 Pulse Ox 94 L 10/25/21 08:00 Intake & Output 10/24/21 10/25/21 10/25/21 18:59 06:59 18:59 Intake Total 866.837 823 596 Output Total 840 1140 450 Balance 26.837 -317 146 Intake: IV 451 373 446 Amio Bolus 300 CO/CI 20 Calcium Gluconate 1 gm In 100 Sodium Chloride 0.9% 100 ml @ 100 mls/hr IVPB ONCE ONE Rx#:[id number] LR @50mls/hr 210 240 40 Magnesium Sulfate-D5w Pmx 100 100 100 1 gm In Dextrose/Water 1 100ml.bag @ 100 mls/hr IVPB Q1H [facility] Rx#: [id number] Pressure Bag 21 33 6 Intake, IV Titration 15.837 Amount Insulin Regular 100 unit 0 In Sodium Chloride 0.9% 100 ml @ Per Protocol IV .Q0M [facility] Rx#:[id number] Norepinephrine 4 mg In 15.837 Sodium Chloride 0.9% 250 ml @ 0.05 MCG/KG/MIN 14. 573 mls/hr IV .[id number] [facility] Rx#:[id number] Oral 400 450 150 Output: Chest Tube Drainage 40 lt pleural 20 ms x2 20 Urine 800 1140 450 Other: Voiding Method Indwelling Catheter Urinal Indwelling Catheter ABP, PAP, CO, CI - Last Documented Arterial Blood Pressure 99/53 Pulmonary Artery Pressure 32/15 Cardiac Output 6.5 Cardiac Index 3.3 - Exam CONSTITUTIONAL: Sitting up in bed in the intensive care unit, appears comfortable, cooperative, no apparent acute distress. HEENT: Neck is supple, no JVD, no lymphadenopathy. Right IJ Cordis in place and functioning. RESPIRATORY: Lungs sounds essentially clear throughout, diminished to his bilateral bases. Respirations are symmetrical and nonlabored. Currently on 4 L nasal cannula with oxygen saturations 94%. Able to achieve 5508-2153 mL on his incentive spirometry. Strong cough. CARDIOVASCULAR: Regular rhythm and rate. S1 and S2 present, negative for S3, gallop or murmur. Sternum is stable. Palpable peripheral pulses bilaterally. No calf pain or tenderness noted. Heart hugger in place with patient demonstrating appropriate use. Knee-high JEANNETTE hose and sequential compression devices in place to his bilateral lower extremities. GASTROINTESTINAL: Abdomen soft, nontender, nondistended. Active bowel sounds present 4 quadrants. Tolerating diet. Passing flatus. No guarding or rigidity. Bowel movement yesterday 10/24/2021. GENITOURINARY: Peng present draining clear, yellow urine. Output 950 mL in the last 8 hours. INTEGUMENTARY: Skin is warm and dry with no evidence of clubbing or cyanosis. Midline sternal incision clean dry and well approximated, covered with dry intact dressing. Left lower extremity EVH sites well approximated without redness or drainage. NEUROLOGIC: Cranial nerves II through XII intact. No focal deficits. MUSKULOSKELETAL: Able to move all extremities, strength equal bilaterally, generalized weakness. PSYCHIATRIC: Alert and oriented to person place and time, appropriate affect, intact judgment and insight. INVASIVE LINES AND TUBES: Ventricular epicardial pacemaker wires present, connected to generator, VVI backup rate 50 bpm. Right internal jugular Cordis in place with current CVP pressure 10 mmHg. - Allied health notes Allied health notes reviewed: nursing - Labs CBC & Chem 7: 10/25/21 03:48 10/25/21 03:48 Labs: Abnormal Lab Results - Last 24 Hours (Table) 10/24/21 10/24/21 10/25/21 Range/Units 11:16 20:53 03:48 RBC (4.30-5.90) m/uL Hgb (13.0-17.5) gm/dL Hct (39.0-53.0) % Plt Count (150-450) k/uL Lymphocytes # (1.0-4.8) k/uL Sodium 135 L (137-145) mmol/L Creatinine 0.61 L (0.66-1.25) mg/dL Glucose 130 H (74-99) mg/dL POC Glucose (mg/dL) 141 H 122 H (75-99) mg/dL Calcium 8.1 L (8.4-10.2) mg/dL Total Bilirubin 1.9 H (0.2-1.3) mg/dL Total Protein 5.1 L (6.3-8.2) g/dL Albumin 3.2 L (3.5-5.0) g/dL 10/25/21 10/25/21 Range/Units 03:48 07:36 RBC 2.71 L (4.30-5.90) m/uL Hgb 8.7 L (13.0-17.5) gm/dL Hct 25.8 L (39.0-53.0) % Plt Count 104 L (150-450) k/uL Lymphocytes # 0.6 L (1.0-4.8) k/uL Sodium (137-145) mmol/L Creatinine (0.66-1.25) mg/dL Glucose (74-99) mg/dL POC Glucose (mg/dL) 179 H (75-99) mg/dL Calcium (8.4-10.2) mg/dL Total Bilirubin (0.2-1.3) mg/dL Total Protein (6.3-8.2) g/dL Albumin (3.5-5.0) g/dL - Imaging and Cardiology Chest x-ray: report reviewed, image reviewed Assessment and Plan Assessment: 1. Coronary artery disease, status post off-pump 2 vessel coronary artery b ypass grafting surgery 2. Non-STEMI this admission 3. Current tobacco dependence 4. Mild COPD with FEV1 65% of predicted 5. Hyperlipidemia, untreated, cholesterol 174, LDL 107 6. Ischemic cardiomyopathy, EF 30-35% with apical LV wall hypokinesis 7. Family history of heart failure, and diabetes 8. Vaccinated, not boosted against Covid-19 9. Postoperative paroxysmal atrial fibrillation, a known common occurrence after cardiac surgery Plan: 1. Continue aspirin, statin, Plavix and beta cuco. Metoprolol tartrate was increased to 25 mg by mouth 3 times a day per cardiology recommendations. 2. Wean O2 as tolerated. Encourage incentive spirometry 10 times every hour while awake. Bronchodilators per pulmonology. 3. Increase activity, ambulate as tolerated. PT/OT/cardiac rehab following. 4. GI/DVT prophylaxis. 5. Pain control with current medication regimen. 6. Will monitor daily labs and chest x-rays. Electrolyte replacement per protocol. 7. Insulin management per primary care service. Patient is not diabetic, preoperative hemoglobin A1c 6.0%, however patient does need tight blood sugar control to prevent infection and promote sternal union 8. Continue right IJ Cordis with continuous CVP monitoring. 9. Flomax 0.4 mg by mouth daily initiated for urinary retention. 10. Keep Peng catheter in place, continue to record strict accurate intake and output. Daily weights. 11. Keep ventricular epicardial pacemaker wires in place. 12. Continue Midodrine 10 mg PO TID. 13. The importance of risk modification including smoking cessation and discussed with patient. 14. More recommendations to follow based on patient's clinical course. Time with Patient: Greater than 30
[2021-10-25] MEDS ORDERED: CALCIUM GLUCONATE 1 GM in SODIUM CHLORIDE 0.9% 100 ML IVPB ONE (10:30)
--- NOTE | 2021-10-25 11:24 | PN ---
PROGRESS NOTE Mr. Murphy is in atrial fibrillation with a moderate ventricular rate. He went into atrial fibrillation last night on IV amiodarone. Rate has improved. He is status post bypass surgery, also history of smoking and COPD. I am increasing the metoprolol from 12.5 mg b.i.d. to 25 mg t.i.d. Blood pressure is 118 systolic, heart rate is about 120. S1, S2 with irregular rhythm audible. Short systolic murmur is noted. Lungs reveal diminished air entry. Abdomen is soft. Lower extremities reveal diminished pulses. Central nervous system grossly no focal deficits. MMODL / IJN: [id number] /
[2021-10-25] MEDS ORDERED: ALBUMIN HUMAN 25% 50 ML in EMPTY BAG 1 BAG IVPB ONE (12:30)
[2021-10-25 12:34] LABS: Glucose,Whole Blood 179 mg/dL (75-99)
[2021-10-25] MEDS: AMIODARONE 450 MG in DEXTROSE 5% IN WATER 250 ML IV SCH ×2 (14:10)
[2021-10-25] MEDS: LACTATED RINGERS 1,000 ML IV SCH (14:40)
--- NOTE | 2021-10-25 14:48 | P.PN ---
Subjective Progress Note Date: 10/25/21 This is a 71-year-old white male patient of Dr. Marty Pal with past history of chronic and ongoing tobacco dependence, patient carries over [id number] smoking history, daily marijuana use, family history of heart failure, and diabetes mellitus. Patient is not on any home medications. He presented to the emergency department on 10/17/2021 when he was awoken out of his sleep at 4:00 in the morning with chest pain radiating to his left arm. Patient was not complaining of any shortness of breath, his chest pain she described as dull and achy with pressure on the left side. There was associated with some nausea and sweating. His EKG shows sinus rhythm with a rate of 68 BPM with no significant ST or T-wave changes. His chest x-ray was negative for any acute process. His troponins were 0.026, 1.440, 2.450, 0.601. The rest of his blood work has been reviewed showing CBC within normal limits, electrolytes and renal profile were unremarkable, LFTs were unremarkable, his lipid profile was unremarkable with the exception of HDL which was 37.6. Urinalysis showed 1+ glucose, and the rest was within normal limits, COVID-19 PCR was negative. Patient had a cardiac catheterization and was found to have severe triple-vessel disease with subtotal 99% LAD stenosis extending to the ostium and followed by an aneurysm formation, total occlusion of the first diagonal, 70% stenosis of the circumflex, critical lesion proximally in the RCA and total occlusion in the midportion with collateral flow. Patient was referred to CT surgery for evaluation for possibility of coronary artery bypass grafting surgery. On 10/20/2021 patient seen in follow-up on selective care unit, she is resting comfortably in bed, has had no episodes of chest pain overnight, he remains on heparin infusion. Lung sounds are clear to auscultation, no dyspnea, no cough, no fever or chills, no complaints of chest discomfort. Preop FEV1 was 65% of predicted. Patient was evaluated by CT surgery, and the plan is to proceed with off-pump myocardial revascularization ANGELES, endovascular vein harvest, and left atrial appendage ligation on on 2021. On 10/21/2021 patient seen in follow-up on selective care unit, he had an uneventful night, breathing comfortably, no complaints of chest pain, tolerating ambulation in the hallway, room air pulse ox is 95%, he is achieving 7299-7307 mL on the incentive spirometer, no fever or chills, no compressive chest discomfort, no coughing or wheezing. Today's labs have been reviewed, CBC is unremarkable, electrodes renal profile are within normal limits. Patient was reevaluated today on 10/18/2021, patient is status post 2 vessel bypass surgery, off pump, patient is now in the ICU intubated and mechanically ventilated. Patient is on tidal volume of 550 assist-control rate of 14 FiO2 100% PEEP of 5. Patient is requiring norepinephrine at 0.03 mcg/kg/m, patient is on nitroglycerin drip at 5 mcg/m, is also on propofol at 20 mcg/kg/m. His cardiac output is 3.5, cardiac index is 1.8, patient is sedated, and he has a mediastinal chest tube in the left pleural chest tube in place. No significant bleeding is noted. ABG today showed a pO2 of more than 400 pCO2 of 46 pH of 7.33, rate was increased from 14-16, FiO2 cut down to 45%. Chest x-ray showed adequate placement of the endotracheal tube, and adequate placement of the different chest tubes, no acute process is noted. On 10/23/2021 patient seen in follow-up in the intensive care unit. Today is postoperative day #1, status post off-pump two-vessel coronary artery bypass grafting surgery, endoscopic left greater saphenous vein harvest, left atrial appendage ligation. Patient was successfully weaned and extubated within just under 5 hours from OR exit time. Postoperatively patient had hypotension, patient received fluid resuscitation, and he has received 1.5 L and 5% albumin preoperatively, 1 L of albumin postoperatively, and 750 ML of 5% albumin this morning. No significant bleeding out of the chest tubes. Patient is currently sitting up in a chair, breathing fairly comfortably, he is having some postoperative pain which is currently better controlled with medications. He is on 4 L per nasal cannula and his pulse ox is 95%. His chest x-ray today shows post thoracotomy changes, left chest tube in place with the possibility of a tiny 4 mm left apical pneumothorax, some patchy interstitial changes in the lower lungs that could relate to atelectasis or pulmonary vascular congestion. Patient is using incentive spirometer, achieving 750 on it today. Patient is currently on lactated Ringer's at 50 ML per hour, norepinephrine at 0.02 mics per kilo per minute. Insulin infusion is at 2 units per hour. Nitroglycerin drip is currently off, patient is in sinus mechanism with a rate of 86 BPM, V wires are in place, with VVI backup of 50 BPM. Currently blood pressure is 87/38, PA pressure is 22/8, cardiac output is 6.9 and index is 3.5. Sternal incision is clean dry and intact, 2 mediastinal chest tubes are connected to the Pleur-evac with 650 ML sanguineous output since surgery, left pleural chest tube was 350 ML of sanguinous output since surgery. urine output is 35-45 ML per hour this morning. This morning's labs have been reviewed, white blood cell cou nt is 6.9, hemoglobin is 10.8, platelet count is 110, serum sodium is 134, the rest of electrolytes and renal profile were unremarkable, LFTs were within normal limits. 10/24/2021, the patient is postop day #2 and the patient is currently being seen in follow-up in the intensive care unit. The patient underwent an off-pump two- vessel bypass surgery. The patient was weaned off the mechanical ventilator and the patient was extubated blood any major difficulties. The patient for now is hemodynamically stable. Norepinephrine infusion is running at 0.02 microvascular kilogram per minute. The patient is a cardiac output of 6.6 with an index of 3.3. Pulmonary pressures are 25 over 17 mmHg. The patient has still 2 mediastinal chest tubes and a left pleural chest tube. Output from the chest tubes are quite low at this point in time. The patient using incentive spirometer and the patient is pulling approximately 750 mL and the patient remains on 6 L about 2 by nasal cannula pulse ox of 96%. Chest x-ray from today shows no evidence of any pneumothorax. There is some atelectatic changes small effusion the lung bases bilaterally. Urine output is adequate in the order of 60-70 mL an hour. The patient has no specific complaints. Most of the 15 chest wall pain. Cardiac rhythm is sinus. No other significant issues over the past 24 hours. He is afebrile hemodynamically stable. 10/25/2021, seeing the patient for a follow-up. The patient is doing well. He remains on 40s about 2 by nasal cannula and the patient is postop day #3. All of the chest was admitted removed and the Peng catheter was removed and had to be reinserted. The patient is having episodes of atrial fibrillation. The patient is currently on amiodarone at 1 mg an hour bolus and he needs to complete his loading dose of amiodarone. He is also on metoprolol 25 mg by mouth 3 times a day. He has no other new complaints. Surgical wound site is dry clean and intact. His wound is intact for now. He is using incentive spirometer. Is pulling more than 1000. Hemoglobin is down to 8.7 this is to be monitored. Platelet count is at 104. The patient also has a DNR/DNI but with a creatinine of 0.6 and the sodium level of 135. The patient has a right IJ Cordis which remains in place. The CVP is around 10. Urine output is adequate for now. Is ambulating. No other significant events otherwise over the past 24 hours other than the issue with atrial fibrillation. The rate is controlled for now. Objective - Vital Signs Vital signs: Vital Signs Temp 98.6 F 10/25/21 12:00 Pulse 76 10/25/21 14:00 Resp 21 10/25/21 14:00 BP 82/53 10/25/21 14:00 Pulse Ox 95 10/25/21 14:00 Intake & Output 10/24/21 10/25/21 10/25/21 18:59 06:59 18:59 Intake Total 866.896 782 1750 Output Total 840 1140 790 Balance 26.837 -317 294 Intake: IV 451 373 884 Amio Bolus 600 CO/CI 20 Calcium Gluconate 1 gm In 100 Sodium Chloride 0.9% 100 ml @ 100 mls/hr IVPB ONCE ONE Rx#:[id number] LR @50mls/hr 210 240 160 Magnesium Sulfate-D5w Pmx 100 100 100 1 gm In Dextrose/Water 1 100ml.bag @ 100 mls/hr IVPB Q1H [facility] Rx#: [id number] Pressure Bag 21 33 24 Intake, IV Titration 15.837 50 Amount Albumin Human 25% 50 ml 50 In Empty Bag 1 bag @ 50 mls/hr IVPB ONCE ONE Rx#: [id number] Insulin Regular 100 unit 0 In Sodium Chloride 0.9% 100 ml @ Per Protocol IV .Q0M [facility] Rx#:[id number] Norepinephrine 4 mg In 15.837 Sodium Chloride 0.9% 250 ml @ 0.05 MCG/KG/MIN 14. 573 mls/hr IV .[id number] [facility] Rx#:[id number] Oral 400 450 150 Output: Chest Tube Drainage 40 lt pleural 20 ms x2 20 Urine 800 1140 790 Other: Voiding Method Indwelling Catheter Urinal Indwelling Catheter ABP, PAP, CO, CI - Last Documented Arterial Blood Pressure 99/53 Pulmonary Artery Pressure 32/15 Cardiac Output 6.5 Cardiac Index 3.3 - Exam CONSTITUTIONAL: Sitting up in bed in the intensive care unit, appears comfortable, cooperative, no apparent acute distress. HEENT: Neck is supple, no JVD, no lymphadenopathy. Right IJ Cordis in place and functioning. RESPIRATORY: Lungs sounds essentially clear throughout, diminished to his bila teral bases. Respirations are symmetrical and nonlabored. Currently on 4 L nasal cannula with oxygen saturations 94%. Able to achieve 0776-7171 mL on his incentive spirometry. Strong cough. CARDIOVASCULAR: Regular rhythm and rate. S1 and S2 present, negative for S3, gallop or murmur. Sternum is stable. Palpable peripheral pulses bilaterally. No calf pain or tenderness noted. Heart hugger in place with patient demonstrating appropriate use. Knee-high JEANNETTE hose and sequential compression devices in place to his bilateral lower extremities. GASTROINTESTINAL: Abdomen soft, nontender, nondistended. Active bowel sounds present 4 quadrants. Tolerating diet. Passing flatus. No guarding or rigidity. Bowel movement yesterday 10/24/2021. GENITOURINARY: Peng present draining clear, yellow urine. Output 950 mL in the last 8 hours. INTEGUMENTARY: Skin is warm and dry with no evidence of clubbing or cyanosis. Midline sternal incision clean dry and well approximated, covered with dry intact dressing. Left lower extremity EVH sites well approximated without redness or drainage. NEUROLOGIC: Cranial nerves II through XII intact. No focal deficits. MUSKULOSKELETAL: Able to move all extremities, strength equal bilaterally, generalized weakness. PSYCHIATRIC: Alert and oriented to person place and time, appropriate affect, intact judgment and insight. INVASIVE LINES AND TUBES: Ventricular epicardial pacemaker wires present, connected to generator, VVI backup rate 50 bpm. Right internal jugular Cordis in place with current CVP pressure 10 mmHg. - Labs CBC & Chem 7: 10/25/21 03:48 10/25/21 03:48 Labs: Abnormal Lab Results - Last 24 Hours (Table) 10/24/21 10/25/21 10/25/21 Range/Units 20:53 03:48 03:48 RBC 2.71 L (4.30-5.90) m/uL Hgb 8.7 L (13.0-17.5) gm/dL Hct 25.8 L (39.0-53.0) % Plt Count 104 L (150-450) k/uL Lymphocytes # 0.6 L (1.0-4.8) k/uL Sodium 135 L (137-145) mmol/L Creatinine 0.61 L (0.66-1.25) mg/dL Glucose 130 H (74-99) mg/dL POC Glucose (mg/dL) 122 H (75-99) mg/dL Calcium 8.1 L (8.4-10.2) mg/dL Total Bilirubin 1.9 H (0.2-1.3) mg/dL Total Protein 5.1 L (6.3-8.2) g/dL Albumin 3.2 L (3.5-5.0) g/dL 10/25/21 10/25/21 Range/Units 07:36 12:32 RBC (4.30-5.90) m/uL Hgb (13.0-17.5) gm/dL Hct (39.0-53.0) % Plt Count (150-450) k/uL Lymphocytes # (1.0-4.8) k/uL Sodium (137-145) mmol/L Creatinine (0.66-1.25) mg/dL Glucose (74-99) mg/dL POC Glucose (mg/dL) 179 H 179 H (75-99) mg/dL Calcium (8.4-10.2) mg/dL Total Bilirubin (0.2-1.3) mg/dL Total Protein (6.3-8.2) g/dL Albumin (3.5-5.0) g/dL Assessment and Plan Plan: #1. Multivessel coronary artery disease, with severe triple-vessel disease with subtotal 99% LAD stenosis, 100% occlusion of the first diagonal, 70% occlusion of the circumflex, critical stenosis of the RCA proximally and total occlusion in the midportion, with collateral flow. S/P Off pump 2 vessel CABG with ANGELES to the LAD, SVG to the PDA, endoscopic greater saphenous vein harvest, and left atrial exclusion on 10/22/2021, the patient has been extubated successfully major difficulties. The patient is currently postop day #3. The patient is doing well and he has no specific complaints. He did develop atrial fibrillation po stop and currently is being loaded with amiodarone. His rate is controlled and the patient is also on beta blockers with metoprolol 25 mg 3 times a day. Antibiotic ventilation may be started within next 24 hours. #2. Acute non-ST elevated myocardial infarction, with subsequent cardiac catheterization, multivessel coronary artery disease and bypass surgery #3. Post thoracotomy, extubated without any major difficulties. No evidence of any pneumothorax. All of the chest and abdomen removed and the patient is currently on 40s about 2 by nasal cannula #4. Post-op hypotension, likely hypovolemic, currently off pressors in the patient's blood pressure normalized #5. Chronic and ongoing history of smoking, carries [id number] smoking history, preop FEV1 was 65% of predicted #6. Daily marijuana smoker #7. Ischemic cardiomyopathy with EF of 30-35% #8 urinary retention, Peng catheter was inserted and the patient will be started on Flomax #9 paroxysmal atrial fibrillation currently being loaded with amiodarone in addition to beta blockers. He is on no anticoagulation. Plan: All of the chest tubes are removed Oxygen 4 L per minute nasal cannula Using incentive spirometer Norepinephrine for a been discontinued Peng catheter was removed and the patient was unable to tolerate. The inserted and the patient will be started on Flomax Patient was started on midodrine 10 mg by mouth 3 times a day Amiodarone loading with subsequent maintenance Metoprolol 25 mg 3 times a day Continue aspirin and Plavix continue using incentive spirometer we'll be asking the patient to ambulate at a later stage we'll continue to follow make further recommendations based on his progress. He'll be staying in ICU for another 24 hours.
[2021-10-25 16:14] LABS: Glucose,Whole Blood 109 mg/dL (75-99)
[2021-10-25 20:04] LABS: Glucose,Whole Blood 169 mg/dL (75-99)
[2021-10-25] MEDS: SENNOSIDES-DOCUSATE SODIUM 1 EACH TAB PO SCH (20:10)
[2021-10-25] MEDS: ACETAMINOPHEN TAB 500 MG TAB PO PRN (20:10)
--- NOTE | 2021-10-25 22:09 | P.PN ---
Subjective Progress Note Date: 10/25/21 This is a 71-year-old gentleman admitted with acute non-STEMI. Status post cardiac catheterization reporting multi-vessel CAD with severe triple vessel disease with subtotal 99% LAD stenosis, 100% occlusion of the first diagonal, 70% occlusion of the circumflex, critical stenosis of the RCA proximally and total occlusion in the midportion, with collateral flow. . Anticoagulated on heparin drip, scheduled for CABG on . Denies chest pain, palpitations or shortness of breath. Maintaining O2 sats in the 90s on room air. 10/21/2021 had episode of heartburn last night, resolved with additional PPI with no reoccurrence. Denies chest pain, palpitations or shortness of breath. Afebrile. Maintaining O2 sats in the high 90s on room air. Chest x-ray pending. Labs pending. 10/23/21 status post CABG, postop day #1. Extubated yesterday. Left pleural chest tube 320ml, mediastinal X 2 630mls output since surgery. Hypotensive, received IV fluid resuscitation/albumin yesterday and this morning maintained on levophed and insulin drips. CO/CI 6.9/3.5. Telemetry sinus rhythm. Complains of pain at chest tube insertion sites, Toradol has been ordered. Incentive spirometer 900. Chest x-ray noted. Maintaining O2 sats in the mid 90s on 4 L nasal cannula. Afebrile, WBC 6.9, hemoglobin 10.8, platelets 110. Sodium 134, potassium 4.2, magnesium 1.7 .Renal function stable. 10/24/2021 Patient is currently in the MICU. Lying in the bed comfortably. Awake alert and oriented x3. Status post CABG postoperative day 2. Off mechanical ventilator. Patient does have mediastinal and left pleural chest tube in place. Participating in incentive spirometry. Chest x-ray showed there may be a component of volume overload., Interstitial edema, bilateral atelectasis, pneumonia of left less likely. Laboratory showed WBC 5.0 hemoglobin 8.9 and platelets 83 sodium 135 potassium 3.7 chloride 105 bicarb is 24 BUN 10 and creatinine 0.59 Patient is being continued on aspirin, statins and Plavix and metoprolol. Also on midodrine 10 mg 3 times daily. Cardiology pulmonary and CT surgery is on board. Patient is able to ambulate in the room and tolerating oral diet. Afebrile. No complaints of cough or sputum production. No nausea vomiting or abdominal pain or diarrhea. 10/25/2021 Patient is in the MICU. Lying in the bed comfortably. Status post CABG postoperative day 3 Mediastinal and left pleural chest tube have been removed yesterday. Denied any complaints of chest pain or worsening shortness of breath. No headache or dizziness or redness. No fever no chills. Overnight patient went into atrial fibrillation. Patient started on amiodarone drip and continue on metoprolol. Dose increased to 20 mg 3 times daily today as per cardiology recommendations. Patient felt fluttering and he had atrial fibrillation. Currently converted to sinus rhythm. Laboratory data showed WBC 5.2 hemoglobin 8.7 platelets 104 sodium 135 potassium 3.7 chloride 106 bicarb is 27 BUN 11 creatinine 0.61 total bilirubin 1.9 albumin 3.2 Current medications reviewed. Objective - Vital Signs Vital signs: Vital Signs Temp 98.6 F 10/25/21 12:00 Pulse 75 10/25/21 15:00 Resp 22 10/25/21 15:00 BP 91/60 10/25/21 15:00 Pulse Ox 96 10/25/21 15:00 Intake & Output 10/24/21 10/25/21 10/25/21 18:59 06:59 18:59 Intake Total 866.981 344 1506 Output Total 840 1140 850 Balance 26.837 -101 484 Weight 81.2 kg Intake: IV 451 373 934 Amio Bolus 600 CO/CI 20 Calcium Gluconate 1 gm In 100 Sodium Chloride 0.9% 100 ml @ 100 mls/hr IVPB ONCE ONE Rx#:[id number] LR @50mls/hr 210 240 180 Magnesium Sulfate-D5w Pmx 100 100 100 1 gm In Dextrose/Water 1 100ml.bag @ 100 mls/hr IVPB Q1H [facility] Rx#: [id number] Pressure Bag 21 33 54 Intake, IV Titration 15.837 50 Amount Albumin Human 25% 50 ml 50 In Empty Bag 1 bag @ 50 mls/hr IVPB ONCE ONE Rx#: [id number] Insulin Regular 100 unit 0 In Sodium Chloride 0.9% 100 ml @ Per Protocol IV .Q0M [facility] Rx#:[id number] Norepinephrine 4 mg In 15.837 Sodium Chloride 0.9% 250 ml @ 0.05 MCG/KG/MIN 14. 573 mls/hr IV .[id number] [facility] Rx#:[id number] Oral 400 450 350 Output: Chest Tube Drainage 40 lt pleural 20 ms x2 20 Urine 800 1140 850 Other: Voiding Method Indwelling Catheter Urinal Indwelling Catheter ABP, PAP, CO, CI - Last Documented Arterial Blood Pressure 99/53 Pulmonary Artery Pressure 32/15 Cardiac Output 6.5 Cardiac Index 3.3 - Exam PHYSICAL EXAMINATION: Patient is lying in the bed comfortably, no acute distress, awake alert and oriented.. HEENT: Normocephalic. Neck is supple. Pupils reactive. Nostrils clear. Oral cavity is moist. Neck reveals no JVD, carotid bruits, or thyromegaly. CHEST EXAMINATION: Trachea is central. Symmetrical expansion. Bibasilar diminished sounds. heart hugger in place CARDIAC: Normal S1, S2 with no gallops. No murmurs ABDOMEN: Soft. Bowel sounds normal. No organomegaly. No abdominal bruits. Extremities: reveal no edema. No clubbing or cyanosis Neurologically awake, alert, oriented x3 with well-coordinated movements. No focal deficits noted Skin: No rash or skin lesions. Psychiatric: Cooperative. Nonsuicidal Musculoskeletal: No joint swelling or deformity. Normal range of motion. - Labs CBC & Chem 7: 10/25/21 03:48 10/25/21 14:35 Labs: Abnormal Lab Results - Last 24 Hours (Table) 10/24/21 10/25/21 10/25/21 Range/Units 20:53 03:48 03:48 RBC 2.71 L (4.30-5.90) m/uL Hgb 8.7 L (13.0-17.5) gm/dL Hct 25.8 L (39.0-53.0) % Plt Count 104 L (150-450) k/uL Lymphocytes # 0.6 L (1.0-4.8) k/uL Sodium 135 L (137-145) mmol/L Creatinine 0.61 L (0.66-1.25) mg/dL Glucose 130 H (74-99) mg/dL POC Glucose (mg/dL) 122 H (75-99) mg/dL Calcium 8.1 L (8.4-10.2) mg/dL Total Bilirubin 1.9 H (0.2-1.3) mg/dL Total Protein 5.1 L (6.3-8.2) g/dL Albumin 3.2 L (3.5-5.0) g/dL 10/25/21 10/25/21 Range/Units 07:36 12:32 RBC (4.30-5.90) m/uL Hgb (13.0-17.5) gm/dL Hct (39.0-53.0) % Plt Count (150-450) k/uL Lymphocytes # (1.0-4.8) k/uL Sodium (137-145) mmol/L Creatinine (0.66-1.25) mg/dL Glucose (74-99) mg/dL POC Glucose (mg/dL) 179 H 179 H (75-99) mg/dL Calcium (8.4-10.2) mg/dL Total Bilirubin (0.2-1.3) mg/dL Total Protein (6.3-8.2) g/dL Albumin (3.5-5.0) g/dL Assessment and Plan Assessment: Acute non-STEMI with severe triple vessel disease, status post CABG. POD # 3 New onset atrial fibrillation currently converted to sinus rhythm. Hypovolemic hypotension owas on pressors Ischemic cardiomyopathy, EF 30-35% with apical left ventricular wall hypokinesis COPD Ongoing nicotine dependence Daily marijuana Plan: Continue on current medication regime ,monitoring and symptomatic treatment. Patient will be continued on aspirin, Plavix, statins, metoprolol dose increased to 25 mg 3 times daily and continue amiodarone drip. Cardiology and pulmonary is on board. Aggressive pulmonary toileting with incentive spirometer reinforced. Pain management. Prognosis guarded given multiple complex medical issues. Time with Patient: Greater than 30
[2021-10-25] MEDS: MELATONIN 3 MG TABLET PO SCH (22:58)
[2021-10-26 04:14] LABS: HCT 23.2 % (39.0-53.0); HGB 7.8 gm/dL (13.0-17.5); MCH 32.2 pg (25.0-35.0); MCHC 33.8 g/dL (31.0-37.0); MCV 95.4 fL (80.0-100.0); Mean Platelet Volume 8.6; Platelet Count 139 k/uL (150-450); RBC 2.43 m/uL (4.30-5.90); RDW 15.3 % (11.5-15.5); WBC 4.5 k/uL (3.8-10.6)
[2021-10-26 04:35] LABS: ALT 19 U/L (4-49); AST 26 U/L (17-59); African American GFR (CKD) >90 (>60 ml/min/1.73 sqM); Albumin 2.8 g/dL (3.5-5.0); Alkaline Phosphatase 55 U/L (38-126); Anion Gap 6 mmol/L; Blood Urea Nitrogen 11 mg/dL (9-20); Calcium 7.6 mg/dL (8.4-10.2); Carbon Dioxide 26 mmol/L (22-30); Chloride 104 mmol/L (98-107); Glucose 101 mg/dL (74-99); Magnesium 1.8 mg/dL (1.6-2.3); Non-African American GFR(CKD) >90 (>60 ml/min/1.73 sqM); Potassium 3.4 mmol/L (3.5-5.1); Sodium 136 mmol/L (137-145); Total Bilirubin 1.2 mg/dL (0.2-1.3); Total Protein 4.6 g/dL (6.3-8.2)
[2021-10-26] MEDS: POTASSIUM CHLORIDE ER 20 MEQ TAB.ER PO SCH ×2 (06:11→06:51)
[2021-10-26] MEDS: ACETAMINOPHEN TAB 500 MG TAB PO PRN (06:11)
[2021-10-26] MEDS: MAGNESIUM SULFATE-D5W PMX 1 GM in DEXTROSE/WATER 1 100ML.BAG IVPB SCH ×2 (06:12→09:45)
[2021-10-26 06:48] LABS: Glucose,Whole Blood 133 mg/dL (75-99)
[2021-10-26] MEDS: INSULIN ASPART (NovoLOG) 100 UNIT/ML VIAL SQ SCH ×4 (06:51→21:00)
[2021-10-26] MEDS: PANTOPRAZOLE 40 MG TABLET PO SCH (06:51)
[2021-10-26] MEDS: MIDODRINE 5 MG TAB PO SCH ×3 (06:51→16:38)
[2021-10-26] MEDS ORDERED: CALCIUM GLUCONATE 2 GM in SODIUM CHLORIDE 0.9% 100 ML IVPB ONE (07:05)
--- NOTE | 2021-10-26 08:18 | XR ---
EXAMINATION TYPE: XR chest 2V DATE OF EXAM: 10/26/2021 COMPARISON: X-ray dated 10/25/2021 HISTORY: Post CABG TECHNIQUE: Frontal and lateral views of the chest are obtained. FINDINGS: Persistent elongated opacity at the right lung base, likely representing atelectasis. Smal l bilateral pleural effusions. Grossly unremarkable remainder of the lungs. No definite pneumothorax. Unchanged cardiomediastinal silhouette, sternotomy wire sutures and cardiac prosthesis. Degenerative changes of the thoracic spine. IMPRESSION: Persistent right lung base opacity, likely atelectasis, and small bilateral pleural effu sions.
[2021-10-26] MEDS: IPRATROPIUM-ALBUTEROL 3 ML NEB INHALATION SCH ×4 (08:27→19:47)
[2021-10-26] MEDS: AMIODARONE 450 MG in DEXTROSE 5% IN WATER 250 ML IV SCH ×2 (08:44)
--- NOTE | 2021-10-26 08:45 | P.PN ---
Subjective Progress Note Date: 10/26/21 Principal diagnosis: Coronary artery disease, non-STEMI this admission. Previous medical history of current tobacco dependence, mild COPD, hyperlipidemia, ischemic cardiomyopathy, family history of heart failure, diabetes. Vaccinated, not boosted against Covid POD #4 off-pump coronary artery bypass grafting 2 with left internal thoracic artery to the left anterior descending coronary artery, a reverse greater saphenous vein graft to the posterior descending coronary artery. Endoscopic left greater saphenous vein harvest, left atrial appendage ligation using a 35 mm Atriclip, intraoperative transesophageal echocardiogram and graft flow measurements using the Medistim flow device. Postoperative acute blood loss anemia and thrombocytopenia, expected given hemodilution. Postoperative paroxysmal atrial fibrillation, a known common occurrence after cardiac surgery Acute urinary retention requiring replacement of Peng catheter The patient was seen and examined this morning sitting up in bed in the ICU in no acute distress. He denies chest pain except with deep breaths, denies shortness of breath. Currently in sinus rhythm and hemodynamically stable. Patient's lopressor was increased yesterday, was hypotensive yesterday with SBP in the 70-80s, lopressor decreased, patient started on midodrine. He did have afib yesterday and was given IV amio protocol. Peng replaced yesterday due to retention, patient was straight cathed twice with 600 mL residual as well as 1 L residual, started on Flomax. Objective - Vital Signs Vital signs: Vital Signs Temp 98.1 F 10/26/21 04:00 Pulse 77 10/26/21 07:00 Resp 25 H 10/26/21 07:00 BP 128/69 10/26/21 07:00 Pulse Ox 96 10/26/21 07:00 Intake & Output 10/25/21 10/26/21 10/26/21 18:59 06:59 18:59 Intake Total 1403 809.37 289.67 Output Total 965 975 75 Balance 438 -165.63 214.67 Weight 81.2 kg Intake: IV 1003 459.37 139.67 Amio Bolus 600 Amiodarone 450 mg In 183.37 16.67 Dextrose 5% in Water 250 ml @ 0.5 MG/MIN 16.667 mls/hr IV .Q15H [facility] Rx#: [id number] LR @50mls/hr 240 240 20 Magnesium Sulfate-D5w Pmx 100 1 gm In Dextrose/Water 1 100ml.bag @ 100 mls/hr IVPB Q1H [facility] Rx#: [id number] Magnesium Sulfate-D5w Pmx 100 1 gm In Dextrose/Water 1 100ml.bag @ 100 mls/hr IVPB Q1H [facility] Rx#: [id number] Pressure Bag 63 36 3 Intake, IV Titration 50 Amount Albumin Human 25% 50 ml 50 In Empty Bag 1 bag @ 50 mls/hr IVPB ONCE ONE Rx#: [id number] Oral 350 350 150 Output: Urine 965 975 75 Other: Voiding Method Indwelling Catheter Indwelling Catheter ABP, PAP, CO, CI - Last Documented Arterial Blood Pressure 99/53 Pulmonary Artery Pressure 32/15 Cardiac Output 6.5 Cardiac Index 3.3 - Exam CONSTITUTIONAL: Appears comfortable, cooperative, no acute distress RESPIRATORY: Lungs sounds diminished bilaterally. Respirations even, nonla bored. Currently on room air with oxygen saturation 92-96%. Able to achieve 2917-2717 mL on incentive spirometry. Strong productive cough. CARDIOVASCULAR: S1, S2 present. Regular rate and rhythm, sinus rhythm on telemetry. Sternum stable. Palpable peripheral pulses bilaterally. No edema present. No calf pain or tenderness noted. Heart hugger in place with patient demonstrating appropriate use. Antiembolism stockings, SCDs present. GASTROINTESTINAL: Abdomen soft, nontender, nondistended. Active bowel sounds present 4 quadrants. Tolerating diet. Positive bowel movement. GENITOURINARY: Peng present draining clear, yellow urine. Output overnight 60-140 mL per hour, 1940 mL in the last 24 hours INTEGUMENTARY: Skin is warm and dry with evidence of good perfusion. Anterior chest incision well approximated and covered with dry intact dressing. Left lower extremity EVH site well approximated without redness or drainage. NEUROLOGIC: Cranial nerves II through XII intact MUSKULOSKELETAL: Able to move all extremities, strength equal bilaterally, gait normal PSYCHIATRIC: Alert and oriented to person place and time, appropriate affect, intact judgment and insight INVASIVE LINES AND TUBES: Ventricular epicardial pacemaker wires present, grounded. Right internal jugular cordis present. - Allied health notes Allied health notes reviewed: nursing - Labs CBC & Chem 7: 10/26/21 04:00 10/26/21 04:00 Labs: Abnormal Lab Results - Last 24 Hours (Table) 10/25/21 10/25/21 10/25/21 Range/Units 12:32 16:12 20:02 RBC (4.30-5.90) m/uL Hgb (13.0-17.5) gm/dL Hct (39.0-53.0) % Plt Count (150-450) k/uL Sodium (137-145) mmol/L Potassium (3.5-5.1) mmol/L Glucose (74-99) mg/dL POC Glucose (mg/dL) 179 H 109 H 169 H (75-99) mg/dL Calcium (8.4-10.2) mg/dL Total Protein (6.3-8.2) g/dL Albumin (3.5-5.0) g/dL 10/26/21 10/26/21 10/26/21 Range/Units 04:00 04:00 06:46 RBC 2.43 L (4.30-5.90) m/uL Hgb 7.8 L (13.0-17.5) gm/dL Hct 23.2 L (39.0-53.0) % Plt Count 139 L (150-450) k/uL Sodium 136 L (137-145) mmol/L Potassium 3.4 L (3.5-5.1) mmol/L Glucose 101 H (74-99) mg/dL POC Glucose (mg/dL) 133 H (75-99) mg/dL Calcium 7.6 L (8.4-10.2) mg/dL Total Protein 4.6 L (6.3-8.2) g/dL Albumin 2.8 L (3.5-5.0) g/dL - Imaging and Cardiology Chest x-ray: image reviewed Assessment and Plan Assessment: 1. Coronary artery disease, non-STEMI this admission, status post 2 vessel CABG 2. Current tobacco dependence 3. 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 Hyperlipidemia, untreated, cholesterol 174, LDL 107 5. Ischemic cardiomyopathy, EF 30-35% with apical LV wall hypokinesis 6. Family history of heart failure, diabetes 7. Vaccinated, not boosted against Covid 8. Postoperative paroxysmal atrial fibrillation 9. Postoperative acute blood loss anemia, thrombocytopenia 10. Acute urinary retention Plan: 1. Continue to maximize medical therapy with aspirin, Plavix, statin, beta cuco. Lopressor decreased to 12.5 mg twice daily. Continue midodrine 2. Continue amiodarone for A. fib prophylaxis, will transition to oral amiodarone. Will start Eliquis for anticoagulation prior to discharge 3. Encourage incentive spirometry use 10 times every hour while awake. Broncho dilators per pulmonology 4. Increase activity, ambulate as tolerated. PT/OT/cardiac rehab following 5. Smoking cessation counseling offered. Continue to encourage smoking cessation 6. We'll continue to monitor daily labs and x-rays. Electrolyte replacement per protocol. Will give 1 dose oral Lasix today 7. Pain control with current medication regimen 8. GI/DVT prophylaxis 9. Insulin management per primary care service. Patient is not diabetic, preoperative hemoglobin A1c 6%, patient does need tight blood sugar control to prevent infection and promote sternal healing 10. We'll discontinue Cordis 11. Ventricular epicardial pacemaker wires discontinued, patient to be on bedrest for 1 hour post wire removal 12. Continue Flomax. Continue Peng catheter for now due to urinary retention. Urology consulted 13. Likely will place transfer orders for 3 S. cardiac stepdown unit later this afternoon 14. More recommendations to follow Time with Patient: Greater than 30
[2021-10-26] MEDS ORDERED: AMIODARONE 200 MG TAB PO SCH (09:00)
[2021-10-26] MEDS ORDERED: METOPROLOL TARTRATE 12.5 MG TAB PO SCH (09:00)
[2021-10-26] MEDS: ATORVASTATIN 40 MG TAB PO SCH (09:45)
[2021-10-26] MEDS: ASPIRIN 325 MG TAB PO SCH (09:46)
[2021-10-26] MEDS: guaiFENesin 600 MG TABLET.ER PO SCH ×2 (09:46→21:09)
[2021-10-26] MEDS: FERROUS SULFATE 325 MG TAB PO SCH ×2 (09:46→16:37)
[2021-10-26] MEDS: HEPARIN SODIUM,PORCINE/PF 5,000 UNIT/0.5 ML SYRINGE SQ SCH ×2 (09:46→16:37)
[2021-10-26] MEDS: TAMSULOSIN 0.4 MG CAP.ER.24H PO SCH (09:47)
[2021-10-26] MEDS: AMIODARONE 200 MG TAB PO SCH ×2 (09:47→21:07)
[2021-10-26] MEDS: CLOPIDOGREL 75 MG TAB PO SCH (09:47)
[2021-10-26] MEDS: ASCORBIC ACID 500 MG TAB PO SCH ×2 (09:47→16:37)
[2021-10-26 11:35] LABS: Glucose,Whole Blood 175 mg/dL (75-99)
[2021-10-26] MEDS ORDERED: FUROSEMIDE 20 MG TAB PO SCH (12:00)
[2021-10-26] MEDS: LACTATED RINGERS 1,000 ML IV SCH (12:26)
[2021-10-26] MEDS: NICOTINE 14MG/24HR PATCH TRANSDERM SCH (12:27)
[2021-10-26] MEDS ORDERED: POTASSIUM CHLORIDE ER 20 MEQ TAB.ER PO STA (12:37)
--- NOTE | 2021-10-26 13:20 | P.PN ---
Subjective Progress Note Date: 10/26/21 This is a 71-year-old white male patient of Dr. Marty Pal with past history of chronic and ongoing tobacco dependence, patient carries over [id number] smoking history, daily marijuana use, family history of heart failure, and diabetes mellitus. Patient is not on any home medications. He presented to the emergency department on 10/17/2021 when he was awoken out of his sleep at 4:00 in the morning with chest pain radiating to his left arm. Patient was not complaining of any shortness of breath, his chest pain she described as dull and achy with pressure on the left side. There was associated with some nausea and sweating. His EKG shows sinus rhythm with a rate of 68 BPM with no significant ST or T-wave changes. His chest x-ray was negative for any acute process. His troponins were 0.026, 1.440, 2.450, 0.601. The rest of his blood work has been reviewed showing CBC within normal limits, electrolytes and renal profile were unremarkable, LFTs were unremarkable, his lipid profile was unremarkable with the exception of HDL which was 37.6. Urinalysis showed 1+ glucose, and the rest was within normal limits, COVID-19 PCR was negative. Patient had a cardiac catheterization and was found to have severe triple-vessel disease with subtotal 99% LAD stenosis extending to the ostium and followed by an aneurysm formation, total occlusion of the first diagonal, 70% stenosis of the circumflex, critical lesion proximally in the RCA and total occlusion in the midportion with collateral flow. Patient was referred to CT surgery for evaluation for possibility of coronary artery bypass grafting surgery. On 10/20/2021 patient seen in follow-up on selective care unit, she is resting comfortably in bed, has had no episodes of chest pain overnight, he remains on heparin infusion. Lung sounds are clear to auscultation, no dyspnea, no cough, no fever or chills, no complaints of chest discomfort. Preop FEV1 was 65% of predicted. Patient was evaluated by CT surgery, and the plan is to proceed with off-pump myocardial revascularization ANGELES, endovascular vein harvest, and left atrial appendage ligation on on 2021. On 10/21/2021 patient seen in follow-up on selective care unit, he had an uneventful night, breathing comfortably, no complaints of chest pain, tolerating ambulation in the hallway, room air pulse ox is 95%, he is achieving 3021-2682 mL on the incentive spirometer, no fever or chills, no compressive chest discomfort, no coughing or wheezing. Today's labs have been reviewed, CBC is unremarkable, electrodes renal profile are within normal limits. Patient was reevaluated today on 10/18/2021, patient is status post 2 vessel bypass surgery, off pump, patient is now in the ICU intubated and mechanically ventilated. Patient is on tidal volume of 550 assist-control rate of 14 FiO2 100% PEEP of 5. Patient is requiring norepinephrine at 0.03 mcg/kg/m, patient is on nitroglycerin drip at 5 mcg/m, is also on propofol at 20 mcg/kg/m. His cardiac output is 3.5, cardiac index is 1.8, patient is sedated, and he has a mediastinal chest tube in the left pleural chest tube in place. No significant bleeding is noted. ABG today showed a pO2 of more than 400 pCO2 of 46 pH of 7.33, rate was increased from 14-16, FiO2 cut down to 45%. Chest x-ray showed adequate placement of the endotracheal tube, and adequate placement of the different chest tubes, no acute process is noted. On 10/23/2021 patient seen in follow-up in the intensive care unit. Today is postoperative day #1, status post off-pump two-vessel coronary artery bypass grafting surgery, endoscopic left greater saphenous vein harvest, left atrial appendage ligation. Patient was successfully weaned and extubated within just under 5 hours from OR exit time. Postoperatively patient had hypotension, patient received fluid resuscitation, and he has received 1.5 L and 5% albumin preoperatively, 1 L of albumin postoperatively, and 750 ML of 5% albumin this morning. No significant bleeding out of the chest tubes. Patient is currently sitting up in a chair, breathing fairly comfortably, he is having some postoperative pain which is currently better controlled with medications. He is on 4 L per nasal cannula and his pulse ox is 95%. His chest x-ray today shows post thoracotomy changes, left chest tube in place with the possibility of a tiny 4 mm left apical pneumothorax, some patchy interstitial changes in the lower lungs that could relate to atelectasis or pulmonary vascular congestion. Patient is using incentive spirometer, achieving 750 on it today. Patient is currently on lactated Ringer's at 50 ML per hour, norepinephrine at 0.02 mics per kilo per minute. Insulin infusion is at 2 units per hour. Nitroglycerin drip is currently off, patient is in sinus mechanism with a rate of 86 BPM, V wires are in place, with VVI backup of 50 BPM. Currently blood pressure is 87/38, PA pressure is 22/8, cardiac output is 6.9 and index is 3.5. Sternal incision is clean dry and intact, 2 mediastinal chest tubes are connected to the Pleur-evac with 650 ML sanguineous output since surgery, left pleural chest tube was 350 ML of sanguinous output since surgery. urine output is 35-45 ML per hour this morning. This morning's labs have been reviewed, white blood cell cou nt is 6.9, hemoglobin is 10.8, platelet count is 110, serum sodium is 134, the rest of electrolytes and renal profile were unremarkable, LFTs were within normal limits. 10/24/2021, the patient is postop day #2 and the patient is currently being seen in follow-up in the intensive care unit. The patient underwent an off-pump two- vessel bypass surgery. The patient was weaned off the mechanical ventilator and the patient was extubated blood any major difficulties. The patient for now is hemodynamically stable. Norepinephrine infusion is running at 0.02 microvascular kilogram per minute. The patient is a cardiac output of 6.6 with an index of 3.3. Pulmonary pressures are 25 over 17 mmHg. The patient has still 2 mediastinal chest tubes and a left pleural chest tube. Output from the chest tubes are quite low at this point in time. The patient using incentive spirometer and the patient is pulling approximately 750 mL and the patient remains on 6 L about 2 by nasal cannula pulse ox of 96%. Chest x-ray from today shows no evidence of any pneumothorax. There is some atelectatic changes small effusion the lung bases bilaterally. Urine output is adequate in the order of 60-70 mL an hour. The patient has no specific complaints. Most of the 15 chest wall pain. Cardiac rhythm is sinus. No other significant issues over the past 24 hours. He is afebrile hemodynamically stable. 10/25/2021, seeing the patient for a follow-up. The patient is doing well. He remains on 40s about 2 by nasal cannula and the patient is postop day #3. All of the chest was admitted removed and the Peng catheter was removed and had to be reinserted. The patient is having episodes of atrial fibrillation. The patient is currently on amiodarone at 1 mg an hour bolus and he needs to complete his loading dose of amiodarone. He is also on metoprolol 25 mg by mouth 3 times a day. He has no other new complaints. Surgical wound site is dry clean and intact. His wound is intact for now. He is using incentive spirometer. Is pulling more than 1000. Hemoglobin is down to 8.7 this is to be monitored. Platelet count is at 104. but with a creatinine of 0.6 and the sodium level of 135. The patient has a right IJ Cordis which remains in place. The CVP is around 10. Urine output is adequate for now. Is ambulating. No other significant events otherwise over the past 24 hours other than the issue with atrial fibrillation. The rate is controlled for now. 10/26/2021, the patient is postop day #4 the patient is doing well on room air oxygen. All of the chest is a been removed. The patient is back and denies normal sinus rhythm. The patient is currently on amiodarone 200 mg twice a day and metoprolol 12.5 mg by mouth twice a day. The patient has no issues with chest wall pain. Surgical site is dry clean and intact. The chest x-ray from today shows postsurgical changes and atelectasis in lung bases. No evidence of any pneumothorax. The patient remains on Lasix 20 mg by mouth daily. No other significant complaints otherwise. The patient is on aspirin and Plavix. No anticoagulants regarding atrial fibrillation. Adequate mentation. Adequate hemodynamics. He is using incentive spirometer. He is pulling approximately 11,000. The patient did have issues with urinary retention. Peng catheter was replaced yesterday due to retention. Patient was subsequently straight cathed twice and the patient was also started on Flomax for his urinary retention. Objective - Vital Signs Vital signs: Vital Signs Temp 98 F 10/26/21 12:00 Pulse 84 10/26/21 13:00 Resp 30 H 10/26/21 13:00 BP 106/65 10/26/21 13:00 Pulse Ox 98 10/26/21 13:00 Intake & Output 10/25/21 10/26/21 10/26/21 18:59 06:59 18:59 Intake Total 1403 809.37 609.67 Output Total 965 975 555 Balance 438 -165.63 54.67 Weight 81.2 kg Intake: IV 1003 459.37 459.67 Albumin 200 Amio Bolus 600 Amiodarone 450 mg In 183.37 16.67 Dextrose 5% in Water 250 ml @ 0.5 MG/MIN 16.667 mls/hr IV .Q15H PRN Rx#: [id number] LR @50mls/hr 240 240 140 Magnesium Sulfate-D5w Pmx 100 1 gm In Dextrose/Water 1 100ml.bag @ 100 mls/hr IVPB Q1H [facility] Rx#: [id number] Magnesium Sulfate-D5w Pmx 100 1 gm In Dextrose/Water 1 100ml.bag @ 100 mls/hr IVPB Q1H [facility] Rx#: [id number] Pressure Bag 63 36 3 Intake, IV Titration 50 Amount Albumin Human 25% 50 ml 50 In Empty Bag 1 bag @ 50 mls/hr IVPB ONCE ONE Rx#: [id number] Oral 350 350 150 Output: Urine 965 975 555 Other: Voiding Method Indwelling Catheter Indwelling Catheter Indwelling Catheter ABP, PAP, CO, CI - Last Documented Arterial Blood Pressure 99/53 Pulmonary Artery Pressure 32/15 Cardiac Output 6.5 Cardiac Index 3.3 - Exam CONSTITUTIONAL: Sitting up in bed in the intensive care unit, appears comfortable, cooperative, no apparent acute distress. HEENT: Neck is supple, no JVD, no lymphadenopathy. Right IJ Cordis in place and functioning. RESPIRATORY: Lungs sounds essentially clear throughout, diminished to his bilateral bases. Respirations are symmetrical and nonlabored. Currently on room air oxygen saturations 94%. Able to achieve 2898-9203 mL on his incentive spirometry. Strong cough. CARDIOVASCULAR: Regular rhythm and rate. S1 and S2 present, negative for S3, gallop or murmur. Sternum is stable. Palpable peripheral pulses bilaterally. No calf pain or tenderness noted. Heart hugger in place with patient demonstrating appropriate use. Knee-high JEANNETTE hose and sequential compression devices in place to his bilateral lower extremities. GASTROINTESTINAL: Abdomen soft, nontender, nondistended. Active bowel sounds present 4 quadrants. Tolerating diet. Passing flatus. No guarding or rigidity. Bowel movement yesterday 10/24/2021. GENITOURINARY: Peng present draining clear, yellow urine. Output 950 mL in the last 8 hours. INTEGUMENTARY: Skin is warm and dry with no evidence of clubbing or cyanosis. Midline sternal incision clean dry and well approximated, covered with dry intact dressing. Left lower extremity EVH sites well approximated without r edness or drainage. NEUROLOGIC: Cranial nerves II through XII intact. No focal deficits. MUSKULOSKELETAL: Able to move all extremities, strength equal bilaterally, generalized weakness. PSYCHIATRIC: Alert and oriented to person place and time, appropriate affect, intact judgment and insight. INVASIVE LINES AND TUBES: Ventricular epicardial pacemaker wires present, connected to generator, VVI backup rate 50 bpm. Right internal jugular Cordis in place - Labs CBC & Chem 7: 10/26/21 04:00 10/26/21 11:36 Labs: Abnormal Lab Results - Last 24 Hours (Table) 10/25/21 10/25/21 10/26/21 Range/Units 16:12 20:02 04:00 RBC (4.30-5.90) m/uL Hgb (13.0-17.5) gm/dL Hct (39.0-53.0) % Plt Count (150-450) k/uL Sodium 136 L (137-145) mmol/L Potassium 3.4 L (3.5-5.1) mmol/L Glucose 101 H (74-99) mg/dL POC Glucose (mg/dL) 109 H 169 H (75-99) mg/dL Calcium 7.6 L (8.4-10.2) mg/dL Total Protein 4.6 L (6.3-8.2) g/dL Albumin 2.8 L (3.5-5.0) g/dL 10/26/21 10/26/21 10/26/21 Range/Units 04:00 06:46 11:33 RBC 2.43 L (4.30-5.90) m/uL Hgb 7.8 L (13.0-17.5) gm/dL Hct 23.2 L (39.0-53.0) % Plt Count 139 L (150-450) k/uL Sodium (137-145) mmol/L Potassium (3.5-5.1) mmol/L Glucose (74-99) mg/dL POC Glucose (mg/dL) 133 H 175 H (75-99) mg/dL Calcium (8.4-10.2) mg/dL Total Protein (6.3-8.2) g/dL Albumin (3.5-5.0) g/dL Assessment and Plan Plan: #1. Multivessel coronary artery disease, with severe triple-vessel disease with subtotal 99% LAD stenosis, 100% occlusion of the first diagonal, 70% occlusion of the circumflex, critical stenosis of the RCA proximally and total occlusion in the midportion, with collateral flow. S/P Off pump 2 vessel CABG with ANGELES to the LAD, SVG to the PDA, endoscopic greater saphenous vein harvest, and left atrial exclusion on 10/22/2021, the patient has been extubated successfully major difficulties. The patient is currently postop day #4. The patient is doing well and he has no specific complaints. #2 atrial fibrillation postop and currently is being loaded with amiodarone and the patient is currently on oral amiodarone. His rate is controlled and the patient is also on beta blockers with metoprolol 12.5 mg 2 times times a day. #3. Post thoracotomy, extubated without any major difficulties. No evidence of any pneumothorax. All of the chest and abdomen removed and the patient is currently on room air oxygen and all of the chest tubes have been removed #4. Post-op hypotension, likely hypovolemic, currently off pressors in the patient's blood pressure normalized #5. Chronic and ongoing history of smoking, carries [id number] smoking history, preop FEV1 was 65% of predicted #6. Daily marijuana smoker #7. Ischemic cardiomyopathy with EF of 30-35% #8 urinary retention, Peng catheter was inserted and the patient will be started on Flomax #9, postoperative hemoglobin of 7.8, anemia, expected outcome of surgery Plan: Continue Using incentive spirometer Norepinephrine for a been discontinued Peng catheter was removed and the patient was unable to tolerate. The inserted and the patient will be started on Flomax Patient was started on midodrine 10 mg by mouth 3 times a day Amiodarone 200 mg twice a day Metoprolol 12.5 mg twice a day Continue aspirin and Plavix continue using incentive spirometer we'll be asking the patient to ambulate at a later stage we'll continue to follow make further recommendations based on his progress. Increased mobility and ambulation for this patient
--- NOTE | 2021-10-26 13:22 | P.PN ---
Subjective Progress Note Date: 10/26/21 This is a 71-year-old gentleman admitted with acute non-STEMI. Status post cardiac catheterization reporting multi-vessel CAD with severe triple vessel disease with subtotal 99% LAD stenosis, 100% occlusion of the first diagonal, 70% occlusion of the circumflex, critical stenosis of the RCA proximally and total occlusion in the midportion, with collateral flow. . Anticoagulated on heparin drip, scheduled for CABG on . Denies chest pain, palpitations or shortness of breath. Maintaining O2 sats in the 90s on room air. 10/21/2021 had episode of heartburn last night, resolved with additional PPI with no reoccurrence. Denies chest pain, palpitations or shortness of breath. Afebrile. Maintaining O2 sats in the high 90s on room air. Chest x-ray pending. Labs pending. 10/23/21 status post CABG, postop day #1. Extubated yesterday. Left pleural chest tube 320ml, mediastinal X 2 630mls output since surgery. Hypotensive, received IV fluid resuscitation/albumin yesterday and this morning maintained on levophed and insulin drips. CO/CI 6.9/3.5. Telemetry sinus rhythm. Complains of pain at chest tube insertion sites, Toradol has been ordered. Incentive spirometer 900. Chest x-ray noted. Maintaining O2 sats in the mid 90s on 4 L nasal cannula. Afebrile, WBC 6.9, hemoglobin 10.8, platelets 110. Sodium 134, potassium 4.2, magnesium 1.7 .Renal function stable. 10/26/2021 Peng catheter reinserted yesterday secondary to urinary retention, with Flomax initiated. Proximal atrial fibrillation yesterday, received amiodarone, beta blockers ,telemetry currently sinus rhythm. Denies chest pain, palpitations. Occasional productive cough of minimal frothy pale yellow sputum. Afebrile, normal WBCs. Chest x-ray reporting persistent right lung base opacity, likely atelectasis and small bilateral pleural effusions. Maintaining O2 sats in the low 90s on room air. Incentive spirometer up to 1000 .Hemoglobin decreased ,7.8, platelets 139. Sodium trending up, 136, receiving supplementation for potassium 3.4, repeat potassium level pending. Renal function stable. Magnesium 1.8. Blood sugars controlled. Objective - Vital Signs Vital signs: Vital Signs Temp 98 F 10/26/21 12:00 Pulse 76 10/26/21 12:00 Resp 35 H 10/26/21 12:00 BP 113/74 10/26/21 12:00 Pulse Ox 88 L 10/26/21 12:00 Intake & Output 10/25/21 10/26/21 10/26/21 18:59 06:59 18:59 Intake Total 1403 809.37 589.67 Output Total 965 975 405 Balance 438 -165.63 184.67 Weight 81.2 kg Intake: IV 1003 459.37 439.67 Albumin 200 Amio Bolus 600 Amiodarone 450 mg In 183.37 16.67 Dextrose 5% in Water 250 ml @ 0.5 MG/MIN 16.667 mls/hr IV .Q15H PRN Rx#: [id number] LR @50mls/hr 240 240 120 Magnesium Sulfate-D5w Pmx 100 1 gm In Dextrose/Water 1 100ml.bag @ 100 mls/hr IVPB Q1H [facility] Rx#: [id number] Magnesium Sulfate-D5w Pmx 100 1 gm In Dextrose/Water 1 100ml.bag @ 100 mls/hr IVPB Q1H [facility] Rx#: [id number] Pressure Bag 63 36 3 Intake, IV Titration 50 Amount Albumin Human 25% 50 ml 50 In Empty Bag 1 bag @ 50 mls/hr IVPB ONCE ONE Rx#: [id number] Oral 350 350 150 Output: Urine 965 975 405 Other: Voiding Method Indwelling Catheter Indwelling Catheter Indwelling Catheter ABP, PAP, CO, CI - Last Documented Arterial Blood Pressure 99/53 Pulmonary Artery Pressure 32/15 Cardiac Output 6.5 Cardiac Index 3.3 - Exam PHYSICAL EXAM: VITAL SIGNS: [As above] GENERAL: Sitting up in bed, no acute distress HEENT: Conjunctivae normal. eyes normal. Oral mucosa moist NECK: Supple, No JVD. CARDIOVASCULAR: S1, S2 regular. No murmur, wearing Heart Hugger. RESPIRATION: Breath sounds diminished in the bases. ABDOMEN: Soft, nontender . No guarding. no masses palpable. Positive bowel sounds. LEGS: No edema. no swelling. wearing knee High JEANNETTE hose with sequential compression PSYCHIATRY: Alert and oriented X3, mood and affect normal. NERVOUS SYSTEM: Cranial N 2-12 grossly normal. Moves all 4 limbs. No focal deficits. Strength and sensation grossly intact. Skin: Warm and dry, no rash - Labs CBC & Chem 7: 10/26/21 04:00 10/26/21 11:36 Labs: Abnormal Lab Results - Last 24 Hours (Table) 10/25/21 10/25/21 10/26/21 Range/Units 16:12 20:02 04:00 RBC (4.30-5.90) m/uL Hgb (13.0-17.5) gm/dL Hct (39.0-53.0) % Plt Count (150-450) k/uL Sodium 136 L (137-145) mmol/L Potassium 3.4 L (3.5-5.1) mmol/L Glucose 101 H (74-99) mg/dL POC Glucose (mg/dL) 109 H 169 H (75-99) mg/dL Calcium 7.6 L (8.4-10.2) mg/dL Total Protein 4.6 L (6.3-8.2) g/dL Albumin 2.8 L (3.5-5.0) g/dL 10/26/21 10/26/21 10/26/21 Range/Units 04:00 06:46 11:33 RBC 2.43 L (4.30-5.90) m/uL Hgb 7.8 L (13.0-17.5) gm/dL Hct 23.2 L (39.0-53.0) % Plt Count 139 L (150-450) k/uL Sodium (137-145) mmol/L Potassium (3.5-5.1) mmol/L Glucose (74-99) mg/dL POC Glucose (mg/dL) 133 H 175 H (75-99) mg/dL Calcium (8.4-10.2) mg/dL Total Protein (6.3-8.2) g/dL Albumin (3.5-5.0) g/dL Assessment and Plan Assessment: Acute non-STEMI with severe triple vessel disease, status post CABG Hypovolemic hypotension, status post pressors Paroxysmal atrial fibrillation, new onset, postop, expected outcome Ischemic cardiomyopathy, EF 30-35% with apical left ventricular wall hypokinesis COPD Ongoing nicotine dependence Daily marijuana Acute urinary retention, postop, expected outcome, Flomax initiated. Hypokalemia Atelectasis, Plan: Continue on current medication regime ,monitoring and symptomatic treatment. Repeat potassium level pending post supplementation. Maintain aggressive pulmonary toileting with incentive spirometer reinforced. Increase ambulation as tolerated. Prognosis guarded given multiple complex medical issues. The impression and plan of care has been dictated as directed. : I performed a history and examination of this patient, discussed the same with the dictator. I agree with the dictator's note ,documented as a scribe. Any additional findings or plans will be noted.
[2021-10-26] MEDS: METOPROLOL TARTRATE 12.5 MG TAB PO SCH ×2 (16:37→21:11)
[2021-10-26 16:39] LABS: Glucose,Whole Blood 106 mg/dL (75-99)
[2021-10-26 20:09] LABS: Glucose,Whole Blood 170 mg/dL (75-99)
[2021-10-26] MEDS: SENNOSIDES-DOCUSATE SODIUM 1 EACH TAB PO SCH (21:07)
[2021-10-26] MEDS: MELATONIN 3 MG TABLET PO SCH (21:09)
[2021-10-27] MEDS: HEPARIN SODIUM,PORCINE/PF 5,000 UNIT/0.5 ML SYRINGE SQ SCH ×2 (01:07→09:54)
[2021-10-27 06:31] LABS: HCT 26.6 % (39.0-53.0); HGB 8.9 gm/dL (13.0-17.5); MCH 32.3 pg (25.0-35.0); MCHC 33.6 g/dL (31.0-37.0); MCV 96.1 fL (80.0-100.0); Mean Platelet Volume 7.4; Platelet Count 192 k/uL (150-450); RBC 2.77 m/uL (4.30-5.90); RDW 15.3 % (11.5-15.5); WBC 5.1 k/uL (3.8-10.6)
[2021-10-27 06:48] LABS: African American GFR (CKD) >90 (>60 ml/min/1.73 sqM); Anion Gap 6 mmol/L; Blood Urea Nitrogen 11 mg/dL (9-20); Calcium 8.1 mg/dL (8.4-10.2); Carbon Dioxide 24 mmol/L (22-30); Chloride 107 mmol/L (98-107); Glucose 99 mg/dL (74-99); Magnesium 1.9 mg/dL (1.6-2.3); Non-African American GFR(CKD) >90 (>60 ml/min/1.73 sqM); Potassium 4.2 mmol/L (3.5-5.1); Sodium 137 mmol/L (137-145)
[2021-10-27 07:04] LABS: Glucose,Whole Blood 109 mg/dL (75-99)
--- NOTE | 2021-10-27 08:15 | P.PN ---
Subjective Progress Note Date: 10/27/21 Principal diagnosis: Coronary artery disease, non-STEMI this admission. Previous medical history of current tobacco dependence, mild COPD, hyperlipidemia, ischemic cardiomyopathy, family history of heart failure, diabetes. Vaccinated, not boosted against Covid POD #5 off-pump coronary artery bypass grafting 2 with left internal thoracic artery to the left anterior descending coronary artery, a reverse greater saphenous vein graft to the posterior descending coronary artery. Endoscopic left greater saphenous vein harvest, left atrial appendage ligation using a 35 mm Atriclip, intraoperative transesophageal echocardiogram and graft flow measurements using the Medistim flow device. Postoperative acute blood loss anemia and thrombocytopenia, expected given hemodilution. Postoperative paroxysmal atrial fibrillation, a known common occurrence after cardiac surgery Acute urinary retention requiring replacement of Peng catheter The patient was seen and examined this morning sitting up in bed in the ICU in no acute distress. He denies chest pain except with deep breaths, denies shortness of breath. Currently in sinus rhythm and hemodynamically stable. Patient has been ambulatory in the hallway without difficulty. Urology consulted yesterday for recommendations regarding urinary retention despite Flomax with the reinitiation of Peng catheter. No other new concerns Objective - Vital Signs Vital signs: Vital Signs Temp 98.2 F 10/26/21 19:17 Pulse 78 10/27/21 06:00 Resp 19 10/27/21 06:00 BP 123/72 10/27/21 06:00 Pulse Ox 93 L 10/27/21 06:00 Intake & Output 10/26/21 10/27/21 10/27/21 18:59 06:59 18:59 Intake Total 609.67 300 Output Total 1215 480 Balance -605.33 -180 Weight 81 kg Intake: IV 459.67 Albumin 200 Amiodarone 450 mg In 16.67 Dextrose 5% in Water 250 ml @ 0.5 MG/MIN 16.667 mls/hr IV .Q15H PRN Rx#: [id number] LR @50mls/hr 140 Magnesium Sulfate-D5w Pmx 100 1 gm In Dextrose/Water 1 100ml.bag @ 100 mls/hr IVPB Q1H [facility] Rx#: [id number] Pressure Bag 3 Oral 150 300 Output: Urine 1215 480 Other: Voiding Method Indwelling Catheter Indwelling Catheter ABP, PAP, CO, CI - Last Documented Arterial Blood Pressure 99/53 Pulmonary Artery Pressure 32/15 Cardiac Output 6.5 Cardiac Index 3.3 - Exam CONSTITUTIONAL: Appears comfortable, cooperative, no acute distress RESPIRATORY: Lungs sounds diminished bilaterally. Respirations even, nonlabored. Currently on 2 L nasal cannula with oxygen saturation in the mid 90s, oxygen saturation does drop to the mid 80s on room air when sleeping. Able to achieve 9773-1149 mL on incentive spirometry. Strong productive cough. CARDIOVASCULAR: S1, S2 present. Regular rate and rhythm, sinus rhythm on telemetry. Sternum stable. Palpable peripheral pulses bilaterally. No edema present. No calf pain or tenderness noted. Heart hugger in place with patient demonstrating appropriate use. Antiembolism stockings, SCDs present. GASTROINTESTINAL: Abdomen soft, nontender, nondistended. Active bowel sounds present 4 quadrants. Tolerating diet. Positive bowel movement. GENITOURINARY: Peng present draining clear, yellow urine. Output overnight 40-60 mL per hour, 1695 mL in the last 24 hours INTEGUMENTARY: Skin is warm and dry with evidence of good perfusion. Anterior chest incision well approximated and covered with dry intact dressing. Left lower extremity EVH site well approximated without redness or drainage. NEUROLOGIC: Cranial nerves II through XII intact MUSKULOSKELETAL: Able to move all extremities, strength equal bilaterally, gait normal PSYCHIATRIC: Alert and oriented to person place and time, appropriate affect, intact judgment and insight I - Allied health notes Allied health notes reviewed: nursing - Labs CBC & Chem 7: 10/27/21 05:56 10/27/21 05:56 Labs: Abnormal Lab Results - Last 24 Hours (Table) 10/26/21 10/26/21 10/26/21 Range/Units 11:33 16:38 20:07 RBC (4.30-5.90) m/uL Hgb (13.0-17.5) gm/dL Hct (39.0-53.0) % POC Glucose (mg/dL) 175 H 106 H 170 H (75-99) mg/dL Calcium (8.4-10.2) mg/dL 10/27/21 10/27/21 10/27/21 Range/Units 05:56 05:56 07:01 RBC 2.77 L (4.30-5.90) m/uL Hgb 8.9 L (13.0-17.5) gm/dL Hct 26.6 L (39.0-53.0) % POC Glucose (mg/dL) 109 H (75-99) mg/dL Calcium 8.1 L (8.4-10.2) mg/dL - Imaging and Cardiology Chest x-ray: image reviewed Assessment and Plan Assessment: 1. Coronary artery disease, non-STEMI this admission, status post 2 vessel CABG 2. Current tobacco dependence 3. 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 Hyperlipidemia, untreated, cholesterol 174, LDL 107 5. Ischemic cardiomyopathy, EF 30-35% with apical LV wall hypokinesis 6. Family history of heart failure, diabetes 7. Vaccinated, not boosted against Covid 8. Postoperative paroxysmal atrial fibrillation 9. Postoperative acute blood loss anemia, thrombocytopenia 10. Acute urinary retention Plan: 1. Continue to maximize medical therapy with aspirin, Plavix, statin, beta cuco. Lopressor increased to 25 mg twice daily. Continue midodrine 2. Continue amiodarone for A. fib prophylaxis. Eliquis started today for anticoagulation 3. Wean O2 as tolerated. Encourage incentive spirometry use 10 times every h our while awake. Bronchodilators per pulmonology 4. Increase activity, ambulate as tolerated. PT/OT/cardiac rehab following 5. Smoking cessation counseling offered. Continue to encourage smoking cessation 6. We'll continue to monitor daily labs and x-rays. Electrolyte replacement per protocol. 7. Pain control with current medication regimen 8. GI/DVT prophylaxis 9. Insulin management per primary care service. Patient is not diabetic, preoperative hemoglobin A1c 6%, patient does need tight blood sugar control to prevent infection and promote sternal healing 10. Continue Flomax. Continue Peng catheter for now due to urinary retention. Urology consulted, appreciate recommendations 11. Transfer orders placed for 3 S. cardiac stepdown unit, may transfer when bed available 12. Discharge planning in progress. Anticipate discharge to home with home care in the next 24 hours 13. More recommendations to follow Time with Patient: Greater than 30
[2021-10-27] MEDS: IPRATROPIUM-ALBUTEROL 3 ML NEB INHALATION SCH ×3 (08:52→15:14)
[2021-10-27] MEDS ORDERED: METOPROLOL TARTRATE 25 MG TAB PO SCH (09:00)
[2021-10-27] MEDS ORDERED: APIXABAN 5 MG TAB PO SCH (09:00)
--- NOTE | 2021-10-27 09:18 | XR ---
EXAMINATION TYPE: XR chest 2V DATE OF EXAM: 10/27/2021 COMPARISON: Chest x-ray 10/26/2021 HISTORY: Status post cardiac surgery TECHNIQUE: Frontal and lateral views of the chest are obtained. FINDINGS: There is no focal air space opacity or pneumothorax seen. Patchy subsegmental basilar atel ectatic changes are noted. The cardiac silhouette size is stable. There are overlying leads. Patient is post median sternotomy and left atrial appendage clip placement. Overlying artifacts. The osseou s structures are intact. IMPRESSION: Basilar atelectasis, difficult to exclude small effusion
[2021-10-27] MEDS: MAGNESIUM SULFATE-D5W PMX 1 GM in DEXTROSE/WATER 1 100ML.BAG IVPB SCH ×2 (09:51→11:09)
[2021-10-27] MEDS: FERROUS SULFATE 325 MG TAB PO SCH ×2 (09:53→17:05)
[2021-10-27] MEDS: PANTOPRAZOLE 40 MG TABLET PO SCH (09:53)
[2021-10-27] MEDS: AMIODARONE 200 MG TAB PO SCH (09:53)
[2021-10-27] MEDS: MIDODRINE 5 MG TAB PO SCH ×3 (09:53→17:05)
[2021-10-27] MEDS: CLOPIDOGREL 75 MG TAB PO SCH (09:53)
[2021-10-27] MEDS: NICOTINE 14MG/24HR PATCH TRANSDERM SCH (09:54)
[2021-10-27] MEDS: ASPIRIN 325 MG TAB PO SCH (09:54)
[2021-10-27] MEDS: guaiFENesin 600 MG TABLET.ER PO SCH (09:54)
[2021-10-27] MEDS: TAMSULOSIN 0.4 MG CAP.ER.24H PO SCH (09:54)
[2021-10-27] MEDS: ASCORBIC ACID 500 MG TAB PO SCH ×2 (09:54→17:05)
[2021-10-27] MEDS: ATORVASTATIN 40 MG TAB PO SCH (09:54)
[2021-10-27] MEDS: INSULIN ASPART (NovoLOG) 100 UNIT/ML VIAL SQ SCH ×3 (09:58→17:06)
[2021-10-27 11:24] LABS: Glucose,Whole Blood 151 mg/dL (75-99)
[2021-10-27] MEDS ORDERED: FUROSEMIDE 40 MG TAB PO STA (12:08)
--- NOTE | 2021-10-27 12:22 | P.PN ---
Subjective Progress Note Date: 10/27/21 This is a 71-year-old white male patient of Dr. Marty Pal with past history of chronic and ongoing tobacco dependence, patient carries over [id number] smoking history, daily marijuana use, family history of heart failure, and diabetes mellitus. Patient is not on any home medications. He presented to the emergency department on 10/17/2021 when he was awoken out of his sleep at 4:00 in the morning with chest pain radiating to his left arm. Patient was not complaining of any shortness of breath, his chest pain she described as dull and achy with pressure on the left side. There was associated with some nausea and sweating. His EKG shows sinus rhythm with a rate of [address]PM with no significant ST or T-wave changes. His chest x-ray was negative for any acute process. His troponins were 0.026, 1.440, 2.450, 0.601. The rest of his blood work has been reviewed showing CBC within normal limits, electrolytes and renal profile were unremarkable, LFTs were unremarkable, his lipid profile was unremarkable with the exception of HDL which was 37.6. Urinalysis showed 1+ glucose, and the rest was within normal limits, COVID-19 PCR was negative. Patient had a cardiac catheterization and was found to have severe triple-vessel disease with subtotal 99% LAD stenosis extending to the ostium and followed by an aneurysm formation, total occlusion of the first diagonal, 70% stenosis of the circumflex, critical lesion proximally in the RCA and total occlusion in the midportion with collateral flow. Patient was referred to CT surgery for evaluation for possibility of coronary artery bypass grafting surgery. On 10/20/2021 patient seen in follow-up on selective care unit, she is resting comfortably in bed, has had no episodes of chest pain overnight, he remains on heparin infusion. Lung sounds are clear to auscultation, no dyspnea, no cough, no fever or chills, no complaints of chest discomfort. Preop FEV1 was 65% of predicted. Patient was evaluated by CT surgery, and the plan is to proceed with off-pump myocardial revascularization ANGELES, endovascular vein harvest, and left atrial appendage ligation on on 2021. On 10/21/2021 patient seen in follow-up on selective care unit, he had an uneventful night, breathing comfortably, no complaints of chest pain, tolerating ambulation in the hallway, room air pulse ox is 95%, he is achieving 0275-2298 mL on the incentive spirometer, no fever or chills, no compressive chest discomfort, no coughing or wheezing. Today's labs have been reviewed, CBC is unremarkable, electrodes renal profile are within normal limits. Patient was reevaluated today on 10/18/2021, patient is status post 2 vessel bypass surgery, off pump, patient is now in the ICU intubated and mechanically ventilated. Patient is on tidal volume of 550 assist-control rate of 14 FiO2 100% PEEP of 5. Patient is requiring norepinephrine at 0.03 mcg/kg/m, patient is on nitroglycerin drip at 5 mcg/m, is also on propofol at 20 mcg/kg/m. His cardiac output is 3.5, cardiac index is 1.8, patient is sedated, and he has a mediastinal chest tube in the left pleural chest tube in place. No significant bleeding is noted. ABG today showed a pO2 of more than 400 pCO2 of 46 pH of 7.33, rate was increased from 14-16, FiO2 cut down to 45%. Chest x-ray showed adequate placement of the endotracheal tube, and adequate placement of the different chest tubes, no acute process is noted. On 10/23/2021 patient seen in follow-up in the intensive care unit. Today is postoperative day #1, status post off-pump two-vessel coronary artery bypass grafting surgery, endoscopic left greater saphenous vein harvest, left atrial appendage ligation. Patient was successfully weaned and extubated within just under 5 hours from OR exit time. Postoperatively patient had hypotension, patient received fluid resuscitation, and he has received 1.5 L and 5% albumin preoperatively, 1 L of albumin postoperatively, and 750 ML of 5% albumin this morning. No significant bleeding out of the chest tubes. Patient is currently sitting up in a chair, breathing fairly comfortably, he is having some postoperative pain which is currently better controlled with medications. He is on 4 L per nasal cannula and his pulse ox is 95%. His chest x-ray today shows post thoracotomy changes, left chest tube in place with the possibility of a tiny 4 mm left apical pneumothorax, some patchy interstitial changes in the lower lungs that could relate to atelectasis or pulmonary vascular congestion. Patient is using incentive spirometer, achieving 750 on it today. Patient is currently on lactated Ringer's at 50 ML per hour, norepinephrine at 0.02 mics per kilo per minute. Insulin infusion is at 2 units per hour. Nitroglycerin drip is currently off, patient is in sinus mechanism with a rate of 86 BPM, V wires are in place, with VVI backup of 50 BPM. Currently blood pressure is 87/38, PA pressure is 22/8, cardiac output is 6.9 and index is 3.5. Sternal incision is clean dry and intact, 2 mediastinal chest tubes are connected to the Pleur-evac with 650 ML sanguineous output since surgery, left pleural chest tube was 350 ML of sanguinous output since surgery. urine output is 35-45 ML per hour this morning. This morning's labs have been reviewed, white blood cell cou nt is 6.9, hemoglobin is 10.8, platelet count is 110, serum sodium is 134, the rest of electrolytes and renal profile were unremarkable, LFTs were within normal limits. 10/24/2021, the patient is postop day #2 and the patient is currently being seen in follow-up in the intensive care unit. The patient underwent an off-pump two- vessel bypass surgery. The patient was weaned off the mechanical ventilator and the patient was extubated blood any major difficulties. The patient for now is hemodynamically stable. Norepinephrine infusion is running at 0.02 microvascular kilogram per minute. The patient is a cardiac output of 6.6 with an index of 3.3. Pulmonary pressures are 25 over 17 mmHg. The patient has still 2 mediastinal chest tubes and a left pleural chest tube. Output from the chest tubes are quite low at this point in time. The patient using incentive spirometer and the patient is pulling approximately 750 mL and the patient remains on 6 L about 2 by nasal cannula pulse ox of 96%. Chest x-ray from today shows no evidence of any pneumothorax. There is some atelectatic changes small effusion the lung bases bilaterally. Urine output is adequate in the order of 60-70 mL an hour. The patient has no specific complaints. Most of the 15 chest wall pain. Cardiac rhythm is sinus. No other significant issues over the past 24 hours. He is afebrile hemodynamically stable. 10/25/2021, seeing the patient for a follow-up. The patient is doing well. He remains on 40s about 2 by nasal cannula and the patient is postop day #3. All of the chest was admitted removed and the Peng catheter was removed and had to be reinserted. The patient is having episodes of atrial fibrillation. The patient is currently on amiodarone at 1 mg an hour bolus and he needs to complete his loading dose of amiodarone. He is also on metoprolol 25 mg by mouth 3 times a day. He has no other new complaints. Surgical wound site is dry clean and intact. His wound is intact for now. He is using incentive spirometer. Is pulling more than 1000. Hemoglobin is down to 8.7 this is to be monitored. Platelet count is at 104. but with a creatinine of 0.6 and the sodium level of 135. The patient has a right IJ Cordis which remains in place. The CVP is around 10. Urine output is adequate for now. Is ambulating. No other significant events otherwise over the past 24 hours other than the issue with atrial fibrillation. The rate is controlled for now. 10/26/2021, the patient is postop day #4 the patient is doing well on room air oxygen. All of the chest is a been removed. The patient is back and denies normal sinus rhythm. The patient is currently on amiodarone 200 mg twice a day and metoprolol 12.5 mg by mouth twice a day. The patient has no issues with chest wall pain. Surgical site is dry clean and intact. The chest x-ray from today shows postsurgical changes and atelectasis in lung bases. No evidence of any pneumothorax. The patient remains on Lasix 20 mg by mouth daily. No other significant complaints otherwise. The patient is on aspirin and Plavix. No anticoagulants regarding atrial fibrillation. Adequate mentation. Adequate hemodynamics. He is using incentive spirometer. He is pulling approximately 11,000. The patient did have issues with urinary retention. Peng catheter was replaced yesterday due to retention. Patient was subsequently straight cathed twice and the patient was also started on Flomax for his urinary retention. 10/27/2021, the patient is on room air oxygen. The patient doing well. No respiratory distress. No cough sputum production chest that is so wheezing. Surgical site is dry clean and intact. The patient's cardiac rhythm is sinus. He was started on anticoagulation with Eliquis. He is also on examination amiodarone and metoprolol. Amiodarone is being given a dose of 200 mg twice a day and metoprolol is at a dose of 25 mg by mouth twice a day. Cardiac rhythm is sinus. Articulation will be started with Eliquis 5 mg by mouth twice a day. He is also on Lipitor 40 mg by mouth daily. He is also on a combination of aspirin and Plavix. All of the chest tubes are removed. Chest x-ray shows adequate expansion of both lungs. He is using incentive spirometer. No other significant events over the past 24 hours. He had urinary retention and the patient was started on Flomax. He'll be transferred out of the intensive care unit today. Objective - Vital Signs Vital signs: Vital Signs Temp 98.2 F 10/27/21 08:00 Pulse 75 10/27/21 11:33 Resp 8 L 10/27/21 11:33 BP 105/63 10/27/21 11:33 Pulse Ox 94 L 10/27/21 11:33 Intake & Output 10/26/21 10/27/21 10/27/21 18:59 06:59 18:59 Intake Total 609.67 300 200 Output Total 1215 480 240 Balance -605.33 -180 -40 Weight 81 kg Intake: IV 459.67 Albumin 200 Amiodarone 450 mg In 16.67 Dextrose 5% in Water 250 ml @ 0.5 MG/MIN 16.667 mls/hr IV .Q15H PRN Rx#: [id number] LR @50mls/hr 140 Magnesium Sulfate-D5w Pmx 100 1 gm In Dextrose/Water 1 100ml.bag @ 100 mls/hr IVPB Q1H [facility] Rx#: [id number] Pressure Bag 3 Intake, IV Titration 200 Amount Magnesium Sulfate-D5w Pmx 200 1 gm In Dextrose/Water 1 100ml.bag @ 100 mls/hr IVPB Q1H [facility] Rx#: [id number] Oral 150 300 Output: Urine 1215 480 240 Other: Voiding Method Indwelling Catheter Indwelling Catheter Indwelling Catheter # Bowel Movements 1 ABP, PAP, CO, CI - Last Documented Arterial Blood Pressure 99/53 Pulmonary Artery Pressure 32/15 Cardiac Output 6.5 Cardiac Index 3.3 - Exam CONSTITUTIONAL: Sitting up in bed in the intensive care unit, appears comfortable, cooperative, no apparent acute distress. HEENT: Neck is supple, no JVD, no lymphadenopathy. Right IJ Cordis has been removed RESPIRATORY: Lungs sounds essentially clear throughout, diminished to his bilateral bases. Respirations are symmetrical and nonlabored. Currently on room air oxygen saturations 94%. Able to achieve 0373-1680 mL on his incentive spirometry. Strong cough. CARDIOVASCULAR: Regular rhythm and rate. S1 and S2 present, negative for S3, gallop or murmur. Sternum is stable. Palpable peripheral pulses bilaterally. No calf pain or tenderness noted. Heart hugger in place with patient demonstrating appropriate use. Knee-high JEANNETTE hose and sequential compression devices in place to his bilateral lower extremities. GASTROINTESTINAL: Abdomen soft, nontender, nondistended. Active bowel sounds present 4 quadrants. Tolerating diet. Passing flatus. No guarding or rigidity. Bowel movement yesterday 10/24/2021. GENITOURINARY: Peng present draining clear, yellow urine. Output 950 mL in the last 8 hours. INTEGUMENTARY: Skin is warm and dry with no evidence of clubbing or cyanosis. Midline sternal incision clean dry and well approximated, covered with dry intact dressing. Left lower extremity EVH sites well approximated without redness or drainage. NEUROLOGIC: Cranial nerves II through XII intact. No focal deficits. MUSKULOSKELETAL: Able to move all extremities, strength equal bilaterally, generalized weakness. PSYCHIATRIC: Alert and oriented to person place and time, appropriate affect, intact judgment and insight. INVASIVE LINES AND TUBES: Ventricular epicardial pacemaker wires present, connected to generator, VVI backup rate 50 bpm. Right internal jugular Cordis in place - Labs CBC & Chem 7: 10/27/21 05:56 10/27/21 05:56 Labs: Abnormal Lab Results - Last 24 Hours (Table) 10/26/21 10/26/21 10/27/21 Range/Units 16:38 20:07 05:56 RBC (4.30-5.90) m/uL Hgb (13.0-17.5) gm/dL Hct (39.0-53.0) % POC Glucose (mg/dL) 106 H 170 H (75-99) mg/dL Calcium 8.1 L (8.4-10.2) mg/dL 10/27/21 10/27/21 10/27/21 Range/Units 05:56 07:01 11:22 RBC 2.77 L (4.30-5.90) m/uL Hgb 8.9 L (13.0-17.5) gm/dL Hct 26.6 L (39.0-53.0) % POC Glucose (mg/dL) 109 H 151 H (75-99) mg/dL Calcium (8.4-10.2) mg/dL Assessment and Plan Plan: #1. Multivessel coronary artery disease, with severe triple-vessel disease with subtotal 99% LAD stenosis, 100% occlusion of the first diagonal, 70% occlusion of the circumflex, critical stenosis of the RCA proximally and total occlusion in the midportion, with collateral flow. S/P Off pump 2 vessel CABG with ANGELES to the LAD, SVG to the PDA, endoscopic greater saphenous vein harvest, and left atrial exclusion on 10/22/2021, the patient has been extubated successfully major difficulties. The patient is currently postop day 5. The patient is doing well and he has no specific complaints. The patient is hemodynamically stable. The patient on room air oxygen. The patient's cardiac rhythm is sinus. #2 atrial fibrillation postop and currently is being loaded with amiodarone and the patient is currently on oral amiodarone. His rate is controlled and the patient is also on beta blockers with metoprolol 25 mg by mouth twice a day the patient's cardiac rhythm is sinus and the patient was also started on anticoagulation with Eliquis. #3. Post thoracotomy, extubated without any major difficulties. No evidence of any pneumothorax. All of the chest and abdomen removed and the patient is currently on room air oxygen and all of the chest tubes have been removed #4. Post-op hypotension, likely hypovolemic, currently off pressors in the patient's blood pressure normalized #5. Chronic and ongoing history of smoking, carries 35-kxbb-kday smoking history, preop FEV1 was 65% of predicted #6. Daily marijuana smoker #7. Ischemic cardiomyopathy with EF of 30-35% #8 urinary retention, Peng catheter was inserted and the patient will be started on Flomax #9, postoperative hemoglobin of 7.8, anemia, expected outcome of surgery Plan: Continue Using incentive spirometer Peng catheter was removed and the patient was unable to tolerate. The inserted and the patient will be started on Flomax Patient was started on midodrine 10 mg by mouth 3 times a day Amiodarone 200 mg twice a day Metoprolol 25 mg twice a day Started patient on Eliquis 5 mg by mouth twice a day Transfer this patient out of the intensive care unit
--- NOTE | 2021-10-27 13:15 | P.PN ---
Subjective Progress Note Date: 10/27/21 This is a 71-year-old gentleman admitted with acute non-STEMI. Status post cardiac catheterization reporting multi-vessel CAD with severe triple vessel disease with subtotal 99% LAD stenosis, 100% occlusion of the first diagonal, 70% occlusion of the circumflex, critical stenosis of the RCA proximally and total occlusion in the midportion, with collateral flow. . Anticoagulated on heparin drip, scheduled for CABG on . Denies chest pain, palpitations or shortness of breath. Maintaining O2 sats in the 90s on room air. 10/21/2021 had episode of heartburn last night, resolved with additional PPI with no reoccurrence. Denies chest pain, palpitations or shortness of breath. Afebrile. Maintaining O2 sats in the high 90s on room air. Chest x-ray pending. Labs pending. 10/23/21 status post CABG, postop day #1. Extubated yesterday. Left pleural chest tube 320ml, mediastinal X 2 630mls output since surgery. Hypotensive, received IV fluid resuscitation/albumin yesterday and this morning maintained on levophed and insulin drips. CO/CI 6.9/3.5. Telemetry sinus rhythm. Complains of pain at chest tube insertion sites, Toradol has been ordered. Incentive spirometer 900. Chest x-ray noted. Maintaining O2 sats in the mid 90s on 4 L nasal cannula. Afebrile, WBC 6.9, hemoglobin 10.8, platelets 110. Sodium 134, potassium 4.2, magnesium 1.7 .Renal function stable. 10/26/2021 Peng catheter reinserted yesterday secondary to urinary retention, with Flomax initiated. Proximal atrial fibrillation yesterday, received amiodarone, beta blockers ,telemetry currently sinus rhythm. Denies chest pain, palpitations. Occasional productive cough of minimal frothy pale yellow sputum. Afebrile, normal WBCs. Chest x-ray reporting persistent right lung base opacity, likely atelectasis and small bilateral pleural effusions. Maintaining O2 sats in the low 90s on room air. Incentive spirometer up to 1000 .Hemoglobin decreased ,7.8, platelets 139. Sodium trending up, 136, receiving supplementation for potassium 3.4, repeat potassium level pending. Renal function stable. Magnesium 1.8. Blood sugars controlled. 10/27/2021 telemetry sinus rhythm, maintaining O2 sats in the 90s on room air. Sputum production minimal, clear. Chest x-ray reporting basilar atelectasis.Continues on metoprolol, amiodarone, anticoagulated on Eliquis. Incentive spirometer 1000. Continues on Flomax with Peng catheter. Hemoglobin increased to 8.9, platelets 192. Objective - Vital Signs Vital signs: Vital Signs Temp 98.2 F 10/27/21 08:00 Pulse 75 10/27/21 11:33 Resp 8 L 10/27/21 11:33 BP 105/63 10/27/21 11:33 Pulse Ox 94 L 10/27/21 11:33 Intake & Output 10/26/21 10/27/21 10/27/21 18:59 06:59 18:59 Intake Total 609.67 300 200 Output Total 1215 480 390 Balance -605.33 -180 -190 Weight 81 kg Intake: IV 459.67 Albumin 200 Amiodarone 450 mg In 16.67 Dextrose 5% in Water 250 ml @ 0.5 MG/MIN 16.667 mls/hr IV .Q15H PRN Rx#: [id number] LR @50mls/hr 140 Magnesium Sulfate-D5w Pmx 100 1 gm In Dextrose/Water 1 100ml.bag @ 100 mls/hr IVPB Q1H [facility] Rx#: [id number] Pressure Bag 3 Intake, IV Titration 200 Amount Magnesium Sulfate-D5w Pmx 200 1 gm In Dextrose/Water 1 100ml.bag @ 100 mls/hr IVPB Q1H [facility] Rx#: [id number] Oral 150 300 Output: Urine 1215 480 390 Other: Voiding Method Indwelling Catheter Indwelling Catheter Indwelling Catheter # Bowel Movements 1 ABP, PAP, CO, CI - Last Documented Arterial Blood Pressure 99/53 Pulmonary Artery Pressure 32/15 Cardiac Output 6.5 Cardiac Index 3.3 - Exam PHYSICAL EXAM: VITAL SIGNS: [As above] GENERAL: Alert and oriented 3, Sitting up inchair, no acute distress HEENT: Conjunctivae normal. eyes normal. Oral mucosa moist NECK: Supple, No JVD. CARDIOVASCULAR: S1, S2 regular. No murmur, wearing Heart Hugger. RESPIRATION: Breath sounds diminished in the bases. ABDOMEN: Soft, nontender . No guarding. no masses palpable. Positive bowel sounds. LEGS: No edema. no swelling. wearing knee High JEANNETTE hose with sequential compression NERVOUS SYSTEM: Cranial N 2-12 grossly normal. Moves all 4 limbs. No focal deficits. Strength and sensation grossly intact. Skin: Warm and dry, no rash - Labs CBC & Chem 7: 10/27/21 05:56 10/27/21 05:56 Labs: Abnormal Lab Results - Last 24 Hours (Table) 10/26/21 10/26/21 10/27/21 Range/Units 16:38 20:07 05:56 RBC (4.30-5.90) m/uL Hgb (13.0-17.5) gm/dL Hct (39.0-53.0) % POC Glucose (mg/dL) 106 H 170 H (75-99) mg/dL Calcium 8.1 L (8.4-10.2) mg/dL 10/27/21 10/27/21 10/27/21 Range/Units 05:56 07:01 11:22 RBC 2.77 L (4.30-5.90) m/uL Hgb 8.9 L (13.0-17.5) gm/dL Hct 26.6 L (39.0-53.0) % POC Glucose (mg/dL) 109 H 151 H (75-99) mg/dL Calcium (8.4-10.2) mg/dL Assessment and Plan Assessment: Acute non-STEMI with severe triple vessel disease, status post CABG Hypovolemic hypotension, status post pressors Paroxysmal atrial fibrillation, new onset, postop, expected outcome Ischemic cardiomyopathy, EF 30-35% with apical left ventricular wall hypokinesis COPD Ongoing nicotine dependence Daily marijuana Acute urinary retention, postop, expected outcome, Flomax initiated. Hypokalemia Atelectasis, Plan: Continue on current medication regime ,monitoring and symptomatic treatment. Urology consult in place, recommendations pending.Patient is scheduled for transfer out of ICU . Discharge planning in progress as per CTS. Maintain aggressive pulmonary toileting with incentive spirometer reinforced. Increase ambulation as tolerated. Prognosis guarded given multiple complex medical issues. The impression and plan of care has been dictated as directed. : I performed a history and examination of this patient, discussed the same with the dictator. I agree with the dictator's note ,documented as a scribe. Any additional findings or plans will be noted.
--- NOTE | 2021-10-27 13:58 | P.PN ---
Progress Note - Text Patient is sitting comfortably in a chair eating Paczak, agatha flavour Doing well no respiratory distress minimal chest discomfort mild cough no wheezing Surgical site is healed well Breath sounds are reduced bilaterally with no rhonchi no crackles Heart sounds S1-S2 are soft Blood pressure 105/63, pulse rate in the 70s and 80s sinus mechanism Vitals stable Impression Multivessel coronary artery disease status post CABG off-pump two-vessel Left atrial appendectomy Patient is doing well and is awaiting discharge Plan Continue ELIQUIS and aspirin at 81 mg daily Continue atorvastatin Continue Plavix Continue low-dose beta blockers Follow-up with Dr. Burkett as an outpatient
[2021-10-27 16:52] VITALS: TEMP 98
[2021-10-27 16:59] LABS: Glucose,Whole Blood 142 mg/dL (75-99)
[2021-10-27 19:03] VITALS: BP 115/63; PULSE 96; RESP 27
--- NOTE | 2021-10-27 19:18 | P.GSCN ---
History of Present Illness Consult date: 10/27/21 Reason for Consult: Urinary Retention Requesting physician: Dorene Vogel History of present illness: The patient is a 71-year-old white male who underwent a CABG on 10/22/2021. He has an unremarkable urologic history and denies any voiding difficulty preoperatively. However, he did experience difficulty voiding postoperatively. He strained to void yet had postvoid residuals of 600 mL one straight catheterized. A Peng catheter was replaced yesterday, with return of 1 L of urine. The catheter remains in place. Review of Systems - Genitourinary Reports as per HPI Past Medical History Past Medical History: No Reported History History of Any Multi-Drug Resistant Organisms: ESBL Year Discovered:: 12/09/16 MDRO Source:: URINE E.COLI Past Surgical History: Appendectomy Past Anesthesia/Blood Transfusion Reactions: No Reported Reaction Past Psychological History: No Psychological Hx Reported Smoking Status: Current every day smoker Past Alcohol Use History: None Reported Past Drug Use History: Marijuana - Past Family History Mother Family Medical History: Congestive Heart Failure (CHF), Diabetes Mellitus Father Additional Family Medical History / Comment(s): from infection Medications and Allergies Home Medications Medication Instructions Recorded Confirmed Type Acetaminophen Tab [Tylenol] 1,000 mg PO Q6HR PRN #0 tab 10/27/21 Rx Amiodarone [Cordarone] 200 mg PO BID #19 tab 10/27/21 Rx Apixaban [Eliquis] 5 mg PO BID #60 tab 10/27/21 Rx Aspirin 81 mg PO DAILY #30 tab 10/27/21 Rx Atorvastatin [Lipitor] 40 mg PO DAILY #30 tab 10/27/21 Rx Furosemide [Lasix] 20 mg PO DAILY #5 tab 10/27/21 Rx Melatonin 6 mg PO HS PRN tablet 10/27/21 Rx Metoprolol Tartrate [Lopressor] 25 mg PO BID #60 tab 10/27/21 Rx Midodrine [ProAmatine] 10 mg PO AC-TID #90 tab 10/27/21 Rx Nicotine 14Mg/24Hr Patch [Habitrol] 1 patch TRANSDERM DAILY #7 patch 10/27/21 Rx Nicotine 7Mg/24Hr Patch [Habitrol] 1 patch TRANSDERM DAILY #7 patch 10/27/21 Rx Pantoprazole [Protonix] 40 mg PO AC-BRKFST #30 tab 10/27/21 Rx Sennosides-Docusate Sodium 2 each PO HS PRN tab 10/27/21 Rx [Senokot-S] Tamsulosin [Flomax] 0.4 mg PO PC-BRKFST #30 10/27/21 Rx Allergies Allergy/AdvReac Type Severity Reaction Status Date / Time No Known Allergies Allergy Verified 10/22/21 06:16 Surgical - Exam Vital Signs Temp Pulse Resp BP Pulse Ox 97.5 F L 63 18 130/86 97 10/17/21 07:07 10/17/21 07:07 10/17/21 07:07 10/17/21 07:07 10/17/21 07:07 - General well developed, well nourished, no distress - Respiratory normal respiratory effort - Abdomen Abdomen: soft, non tender, no guarding, no rigid, no rebound - Genitourinary normal penis with no external lesions, testicles non-tender - Rectum Rectum: normal sphincter tone, no masses, other (Prostate approximately 40 g in size, smooth in consistency) - Psychiatric oriented to time, oriented to person, oriented to place, speech is normal, memory intact Results - Labs 10/27/21 05:56 10/27/21 05:56 Abnormal Lab Results - Last 24 Hours (Table) 10/26/21 10/26/21 10/26/21 Range/Units 06:46 11:33 16:38 RBC (4.30-5.90) m/uL Hgb (13.0-17.5) gm/dL Hct (39.0-53.0) % POC Glucose (mg/dL) 133 H 175 H 106 H (75-99) mg/dL 10/26/21 10/27/21 Range/Units 20:07 05:56 RBC 2.77 L (4.30-5.90) m/uL Hgb 8.9 L (13.0-17.5) gm/dL Hct 26.6 L (39.0-53.0) % POC Glucose (mg/dL) 170 H (75-99) mg/dL Diabetes panel 10/26/21 Range/Units 11:36 Potassium 3.7 (3.5-5.1) mmol/L Pituitary panel 10/26/21 Range/Units 11:36 Potassium 3.7 (3.5-5.1) mmol/L Adrenal panel 10/26/21 Range/Units 11:36 Potassium 3.7 (3.5-5.1) mmol/L Assessment and Plan (1) Retention of urine, unspecified Current Visit: Yes Status: Acute Code(s): R33.9 - RETENTION OF URINE, U NSPECIFIED SNOMED Code(s): 047891015 Plan: Given the degree of bladder distention, I have suggested to the patient that he be discharged home with the Peng catheter. This will allow the bladder to rest and regained tone. Tamsulosin has been prescribed, and he has been instructed to remove his Peng catheter prior to seeing me in the office early next week. Time with Patient: Greater than 30
[2021-10-28] MEDS ORDERED: ASPIRIN 81 MG PO SCH (09:00)
--- NOTE | 2021-10-28 14:08 | P.DS ---
Providers Date of admission: 10/19/21 08:34 Expected date of discharge: 10/27/21 Attending physician: Reinaldo Breen MD Consults: 10/17/21 08:21 Consult Physician Urgent Consulting Provider: Enoch Dozier Consult Reason/Comments: chest pain Do you want consulting provider notified?: Yes 10/18/21 10:24 Consult Physician Urgent Consulting Provider: Demarco Rand Consult Reason/Comments: CAD urgent CABG Do you want consulting provider notified?: Yes 10/19/21 07:51 Consult Physician Routine Consulting Provider: Camila Butler Consult Reason/Comments: pulm clearence cabg Do you want consulting provider notified?: Yes 10/21/21 09:41 Consult to Anesthesia Routine Consulting Provider: Anesthesia,Services Consult Reason/Comments: Cardiac Surgery Pre-Op 10/22/21 13:22 Consult Physician Routine Consulting Provider: Marty Pal Consult Reason/Comments: med mgmt Do you want consulting provider notified?: Already Contacted 10/26/21 07:35 Consult Physician Routine Consulting Provider: Demetri Mejia Consult Reason/Comments: urine retention Do you want consulting provider notified?: Yes Primary care physician: Marty Pal [facility] Course: FINAL DIAGNOSIS: 1. Coronary artery disease, non-STEMI this admission 2. Current tobacco dependence 3. 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 Hyperlipidemia, untreated, cholesterol 174, LDL 107 5. Ischemic cardiomyopathy, EF 30-35% with apical LV wall hypokinesis 6. Family history of heart failure, diabetes 7. Vaccinated, not boosted against Covid 8. Postoperative paroxysmal atrial fibrillation 9. Postoperative acute blood loss anemia, pancytopenia 10. Acute urinary retention PRINCIPAL PROCEDURE: 1. Off-pump coronary artery bypass grafting 2 with the left internal mammary artery to the left anterior descending artery, reverse greater saphenous vein graft to the posterior descending coronary artery 2. Endoscopic left greater saphenous vein harvest 3. Left atrial appendage using a 35 mm AtriClip 4. Intraoperative transesophageal echocardiogram and graft flow measurements using the PEPperPRINT system HISTORY OF PRESENT ILLNESS: This is an active 71-year-old gentleman who follows on an outpatient basis with Dr. Marty Pal for primary care. He presented to [facility] emergency room with symptoms consistent with acute coronary syndrome, troponins were elevated and he was ruled in for non-STEMI. He was recommended to undergo heart catheterization which demonstrated triple-vessel coronary artery disease. Transthoracic echocardiogram demonstrated impaired left ventricular systolic function with EF 30-35% and apical LV wall hypokinesis, mild mitral regurgitation, and mild tricuspid regurgitation. Consultation was placed to cardiothoracic surgery for surgical revascularization recommendations. He was recommended to undergo coronary artery bypass grafting surgery. The usual perioperative course was discussed in detail with the patient and his family, all risks and benefits were explained, all questions were answered, and consent was obtained to proceed with surgery. The patient was kept inpatient due to the nature of his disease process. HOSPITAL COURSE: The patient was brought to the preoperative area 10/22/21, prepared in the usual fashion, and subsequently taken to the operating room where Dr. Breen performed 2 vessel off-pump CABG. Upon completion of surgery the patient was transferred to the cardiovascular intensive care unit where he was recovered and monitored hemodynamically. He was extubated, all lines, tubes, and drips were discontinued when appropriate, and he was transferred to 3 S. cardiac stepdown unit for further monitoring and rehabilitation. His oxygen was titrated down, he continued to work with physical and occupational therapy, he was tolerating oral diet, his pain was controlled, and he was ready to be discharged to home with [facility] on postoperative day #5. He received written and verbal instruction regarding his medications, activity restrictions, signs and symptoms requiring physician notification, and follow-up appointments. This gentleman did have to be discharged to home with a Peng catheter in place due to retention to follow-up with urology on an outpatient basis. In addition he was not discharged on an ISRA-I or ARB as it was contraindicated at the time due to hypotension, and will be started on an outpatient basis when appropriate. Patient Condition at Discharge: Stable Plan - Discharge Summary Discharge Rx Participant: No New Discharge Prescriptions: New Amiodarone [Cordarone] 200 mg PO BID #19 tab Tamsulosin [Flomax] 0.4 mg PO PC-BRKFST #30 Nicotine 14Mg/24Hr Patch [Habitrol] 1 patch TRANSDERM DAILY #7 patch Nicotine 7Mg/24Hr Patch [Habitrol] 1 patch TRANSDERM DAILY #7 patch Atorvastatin [Lipitor] 40 mg PO DAILY #30 tab Metoprolol Tartrate [Lopressor] 25 mg PO BID #60 tab Midodrine [ProAmatine] 10 mg PO AC-TID #90 tab Pantoprazole [Protonix] 40 mg PO AC-BRKFST #30 tab Aspirin 81 mg PO DAILY #30 tab Apixaban [Eliquis] 5 mg PO BID #60 tab Furosemide [Lasix] 20 mg PO DAILY #5 tab Melatonin 6 mg PO HS PRN tablet PRN Reason: Insomnia Sennosides-Docusate Sodium [Senokot-S] 2 each PO HS PRN tab PRN Reason: Constipation Acetaminophen Tab [Tylenol] 1,000 mg PO Q6HR PRN #0 tab PRN Reason: Fever And/ Or Pain Discontinued Ibuprofen [Motrin Ib] 400 mg PO Q8H PRN PRN Reason: Migraine Headache Discharge Medication List Acetaminophen Tab [Tylenol] 1,000 mg PO Q6HR PRN #0 tab 10/27/21 [Rx] Amiodarone [Cordarone] 200 mg PO BID #19 tab 10/27/21 [Rx] Apixaban [Eliquis] 5 mg PO BID #60 tab 10/27/21 [Rx] Aspirin 81 mg PO DAILY #30 tab 10/27/21 [Rx] Atorvastatin [Lipitor] 40 mg PO DAILY #30 tab 10/27/21 [Rx] Furosemide [Lasix] 20 mg PO DAILY #5 tab 10/27/21 [Rx] Melatonin 6 mg PO HS PRN tablet 10/27/21 [Rx] Metoprolol Tartrate [Lopressor] 25 mg PO BID #60 tab 10/27/21 [Rx] Midodrine [ProAmatine] 10 mg PO AC-TID #90 tab 10/27/21 [Rx] Nicotine 14Mg/24Hr Patch [Habitrol] 1 patch TRANSDERM DAILY #7 patch 10/27/21 [Rx] Nicotine 7Mg/24Hr Patch [Habitrol] 1 patch TRANSDERM DAILY #7 patch 10/27/21 [Rx] Pantoprazole [Protonix] 40 mg PO AC-BRKFST #30 tab 10/27/21 [Rx] Sennosides-Docusate Sodium [Senokot-S] 2 each PO HS PRN tab 10/27/21 [Rx] Tamsulosin [Flomax] 0.4 mg PO PC-BRKFST #30 10/27/21 [Rx] Follow up Appointment(s)/Referral(s): Fely Finley MD [STAFF PHYSICIAN] - 11/24/21 1:15 pm Dorene Vogel NPC [Nurse Practitioner] - 11/03/21 2:30 pm (You will be seen in the surgeon's office behind the [facility] at [facility], [address], [address]. Office phone number is ) [facility]Cardiac [NON-STAFF] - 4 Weeks (You will be called in 4-6 weeks for evaluation for cardiac rehab) Demetri Mejia MD [STAFF PHYSICIAN] - 1 Week Marty Pal DO [Primary Care Provider] - 11/10/21 1:40 pm Tracy Burkett MD [STAFF PHYSICIAN] - 11/03/21 4:00 pm Reinaldo Breen MD [STAFF PHYSICIAN] - 11/16/21 1:00 pm [facility], [NON-STAFF] - Ambulatory/Diagnostic Orders: Complete Blood Count w/diff [LAB.AMB] Time Frame: 3 Days, Location: None Selected Comprehensive Metabolic Panel [LAB.AMB] Time Frame: 3 Days, Location: None Selected Activity/Diet/Wound Care/Special Instructions: DISCHARGE INSTRUCTIONS: 1. No driving for 4 weeks, or until physician gives their ok. 2. The patient should sleep in their own bed, no medical bed needed. 3. Stairs are not an issue. If the bedroom is upstairs, it is advised that the patient go up at night and down in the morning for the first week. Go slowly, using handrail and take 1 step at a time. 4. JEANNETTE hose are to be worn for 30 days or until physician discontinues. 5. Heart hugger is to be worn 100% of the time until physician discontinues.(except when showering) 6. No lifting, pushing, or pulling more than 10 pounds for 12 weeks. The physician will advise of any restriction changes. 7. The patient is expected to continue the prescribed walking program. 8. Continue pain control per as needed orders. 9. Continue with incentive spirometry and splinting/heart hugger until otherwise directed by the physician. 10. Must shower daily using liquid antibacterial soap and a separate white washcloth for each individual incision. 11. Routine sternal incision care. No powders, lotions, ointments on incisions. No dressings are necessary on incisions unless they are draining. Dermabond tape is to remain on sternal incision until surgeon follow-up. 12. Please call surgeon/ENGINEERED WOOD DESIGNER for temp greater than 101 F or purulent drainage from incisions. 13. Please weigh your self every morning, record and bring with you to follow- up appointments 14. All prescriptions given by surgeon for 30 days. Refills need to be filled through commutator repairer/primary care physician. 15. A Red armband has been placed on the patient. It should be worn for 30 days post surgery and will be removed by the cardiac surgeons. If an ER visit is necessary, please make sure the number on the Red armband is called. 16. You have been referred to and are expected to begin Cardiac Rehab in approximately 4-6 weeks. HOME HEALTH SERVICES TO PROVIDE: RN SKILLED HOME CARE SERVICES FOR POST-OP SURGICAL PATIENTS WITH THE FOLLOWING: Coronary Artery Bypass Surgery (CABG), Mitral Valve Replacement/Repair ( MVR), Aortic Valve Replacement/Repair (AVR) RN TO CONTINUE EDUCATION FROM ``ROAD TO A HEALTH HEART PATIENT EDUCATION MANUAL (GIVEN TO PATIENT IN THE HOSPITAL) MEDICATION RECONCILIATION WITH EDUCATION NEEDED ON FIRST HOME VISIT EMPHASIZE IMPORTANCE OF WEARING BREAST SUPPORT/HEART HUGGER ENCOURAGE USE OF INCENTIVE SPIROMETER 10 X EVERY HOUR WHILE AWAKE ENCOURAGE UTILIZATION OF LOWER EXTREMITY COMPRESSION STOCKINGS/JEANNETTE HOSE and ELEVATE LEGS ABOVE LEVEL OF HEART WHILE AT REST. ENCOURAGE AMBULATION 3-5x/day INCREASING TOLERATES, WHILE AVOIDING EXTREMES IN TEMPERATURE FREQUENCY: RN TO OPEN THE PATIENT WITHIN 24 HOURS OF DISCHARGE FROM THE HOSPITAL WITH [place]HE[place]ST[place] [facility] [place] VISIT 2-3 X A WEEK FOR 4 WEEKS ESTABLISHED BY PATIENT NEEDS. LABORATORY: CBC, CMP TO BE DRAWN ON THE THIRD DAY HOME, (RAN STAT) FAX RESULTS TO [phone]. TELEHEALTH PARAMETERS: WEIGHT: NOTIFY MD OF WEIGHT GAIN OF 2 LBS IN 24 HOURS OR 5 LBS IN ONE WEEK HR: NOTIFY MD OF HR <55 BPM OR HR>100 BPM BP: NOTIFY MD IF BP <90/55 OR BP>140/100 O2 SAT: NOTIFY MD IF PO2<93% ON ROOM AIR SEND TELEHEALTH REPORT TO JUNIOR PROJECT MANAGER AND CARDIOVASCULAR SURGEON THE FIRST WEEK OF CARE AND THEN BI-WEEKLY. PLEASE ADDITIONALLY COMMUNICATE ANY ABNORMALS AND NEW FINDINGS TO THE SURGEONS OFFICE. Patient will call Dr. Mejia' office to schedule a follow-up appointment in the late afternoon November 02 or November 03. He has been instructed to remove his Peng catheter at 6 AM that day. Discharge Disposition: HOME WITH HOME HEALTH SERVICES
== END 2021-10-27 19:19 | disposition home health service (06) | DRG 234 ==
LOC: EC 07:06 → 6NMEDSUR 08:26 → 3SCARD 16:18 → OBSVTOIN 10-19 08:34 → 2SICU 10-22 08:30
PROVIDERS: ADMIT Thoracic Surgery (Cardiothoracic Vascular Surgery); ATTEND Thoracic Surgery (Cardiothoracic Vascular Surgery)
PROC: 4A023N7 Measurement of Cardiac Sampling and Pressure, Left Heart, Percutaneous Approach (ICD-10-PCS; 2021-10-18)
PROC: B211YZZ Fluoroscopy of Multiple Coronary Arteries using Other Contrast (ICD-10-PCS; 2021-10-18)
PROC: 06BQ4ZZ Excision of Left Saphenous Vein, Percutaneous Endoscopic Approach (ICD-10-PCS; 2021-10-22)
PROC: 02L70CK Occlusion of Left Atrial Appendage with Extraluminal Device, Open Approach (ICD-10-PCS; 2021-10-22)
PROC: B24BZZ4 Ultrasonography of Heart with Aorta, Transesophageal (ICD-10-PCS; 2021-10-22)
PROC: 02100ZC Bypass Coronary Artery, One Artery from Thoracic Artery, Open Approach (ICD-10-PCS; principal; 2021-10-22 08:00)
PROC: 021009W Bypass Coronary Artery, One Artery from Aorta with Autologous Venous Tissue, Open Approach (ICD-10-PCS; 2021-10-22 08:00)
DX: I21.4 Non-ST elevation (NSTEMI) myocardial infarction (principal); D61.818 Other pancytopenia; D62 Acute posthemorrhagic anemia; I25.110 Atherosclerotic heart disease of native coronary artery with unstable angina pectoris; E78.00 Pure hypercholesterolemia, unspecified; I25.5 Ischemic cardiomyopathy; E78.5 Hyperlipidemia, unspecified; J44.9 Chronic obstructive pulmonary disease, unspecified; Z20.822 Contact with and (suspected) exposure to COVID-19; F17.210 Nicotine dependence, cigarettes, uncomplicated; Z66 Do not resuscitate; E87.6 Hypokalemia; R33.9 Retention of urine, unspecified; I48.0 Paroxysmal atrial fibrillation; E86.1 Hypovolemia; Z79.01 Long term (current) use of anticoagulants; Z79.02 Long term (current) use of antithrombotics/antiplatelets; Z79.82 Long term (current) use of aspirin; Z79.899 Other long term (current) drug therapy; Z83.3 Family history of diabetes mellitus; Z82.49 Family history of ischemic heart disease and other diseases of the circulatory system
CPT/HCPCS: 36415; 71045; 71046; 80048; 80053; 80061; 81003; 82330; 82805; 83036; 83735; 83880; 84132; 84443; 84484; 85025; 85027; 85049; 85520; 85610; 85730; 86850; 86891; 86900; 86901; 86920; 87070; 87635; 93005; 93306; 93458; 93880; 93970; 94002; 94150; 94640; 94760; 99285

== ENCOUNTER → 2021-11-12 | Outpatient (CLI) | payer MEDICARE ==
[2021-11-13 01:03] LABS: ALT 25 U/L (10-49); AST 17 U/L (14-35); Albumin 4.3 g/dL (3.8-4.9); Albumin/Globulin Ratio 2.25 (1.60-3.17); Alkaline Phosphatase 158 U/L (41-126); Bilirubin, Conjugated <0.20 mg/dL (0.20-0.40); Chol/HDL Ratio 3.83 Ratio; Globulin 1.9 g/dL (1.6-3.3); LDL Cholesterol,Calculated 48.2 mg/dL (0.0-131.0); Total Protein 6.2 g/dL (6.2-8.2)
== END | disposition home or self-care (01) ==
LOC: LABWHC1 13:37
PROVIDERS: ATTEND Internal Medicine Cardiovascular Disease
DX: I25.10 Atherosclerotic heart disease of native coronary artery without angina pectoris (principal); E78.5 Hyperlipidemia, unspecified
CPT/HCPCS: 36415; 80061; 80076

== ENCOUNTER 2025-02-01 08:23 | Day surgery (SDC) | payer MEDICARE ==
[2025-02-01] MEDS ORDERED: MIDAZOLAM 2 MG/2 ML VIAL IV PRN (08:48)
[2025-02-01] MEDS ORDERED: HYDROmorphone 0.5 MG/0.5 ML SYRINGE IVP PRN (08:48)
[2025-02-01] MEDS: ACETAMINOPHEN TAB 500 MG TAB PO PRN (09:18)
[2025-02-01] MEDS: ONDANSETRON 4 MG/2 ML VIAL IVP ONE (09:18)
[2025-02-01] MEDS: LACTATED RINGERS 1,000 ML IV SCH (09:18)
[2025-02-01] MEDS: DEXAMETHASONE SOD PHOSPHATE 4 MG/ML 1 ML VIAL IV ONE (09:18)
[2025-02-01] MEDS: IV FLUID CONTINUATION 1,000 ML IV ONE (09:22)
[2025-02-01] MEDS ORDERED: fentaNYL (PF) 50 MCG/ML 2 ML AMP ONE (09:37)
[2025-02-01] MEDS ORDERED: PROPOFOL 10 MG/ML 20 ML VIAL IV ONE (09:37)
[2025-02-01] MEDS ORDERED: LIDOCAINE 1% INJ 10MG/ML (20 ML MDV) ONE (09:37)
[2025-02-01] MEDS ORDERED: NEOSTIGMINE 1 MG/ML 10 ML VIAL ONE (09:37)
[2025-02-01] MEDS ORDERED: GLYCOPYRROLATE 0.2 MG/ML 2 ML VIAL ONE (09:37)
[2025-02-01] MEDS ORDERED: SUCCINYLCHOLINE CHLORIDE 200 MG/10 ML VIAL IV ONE (09:37)
[2025-02-01] MEDS ORDERED: KETAMINE HCL IN 0.9 % NACL 50 MG/5 ML SYRINGE ONE (09:37)
[2025-02-01] MEDS ORDERED: MIDAZOLAM 2 MG/2 ML VIAL ONE (09:37)
[2025-02-01] MEDS ORDERED: ePHEDrine 50 MG/ML 1 ML VIAL ONE (09:37)
[2025-02-01] MEDS ORDERED: ROCURONIUM 10 MG/ML (5 ML VIAL) IV ONE (09:37)
[2025-02-01] MEDS: HEPARIN SODIUM,PORCINE 5,000 UNIT/ML 1 ML VIAL SQ PRN (09:41)
[2025-02-01] MEDS: ceFAZolin 2 GM in DEXTROSE 5% IN WATER 50 ML IVPB PRN (09:43)
[2025-02-01] MEDS: BUPIVACAINE (PF) 0.25% 30 ML VIAL SQ ONE ×2 (10:01)
[2025-02-01] MEDS: LIDOCAINE 1%-EPI 1:100,000 20 ML VIAL SQ ONE (10:01)
[2025-02-01 12:11] VITALS: TEMP 97.2
[2025-02-01] MEDS ORDERED: TAMSULOSIN 0.4 MG CAP.ER.24H PO STA (12:11)
--- NOTE | 2025-02-01 12:14 | P.OP ---
Date of Procedure: 02/01/25 Procedure(s) Performed: PREOPERATIVE DIAGNOSIS: Bilateral inguinal hernia POSTOPERATIVE DIAGNOSIS: Same PROCEDURE: Laparoscopic da Torie assisted repair bilateral inguinal hernia SURGEON: Dr. Ruiz ANESTHESIA: General OPERATIVE PROCEDURE DETAILS: Patient was placed in the operating table in the supine position. The patient was placed under general anesthesia. The abdomen was prepped and draped in usual sterile fashion. A small curvilinear supraumbilical incision was made. The fascia was retracted anteriorly with Ruthann forceps. The Veress needle was inserted. The saline drop test was normal. Insufflation took place to 15 mmHg. An 8 mm trocar was placed into the peritoneal cavity. 2 additional 8 mm trochars were placed in the right upper quadrant and left upper quadrant under visualization. The robotic arms were then brought in and docked into place. The fenestrated bipolar was used in the left arm and the laparoscopic vincenzo was utilized in the right arm. A 30° 8 mm scope was used in the up position. The peritoneal cavity was inspected. The patient had a moderate sized right direct inguinal hernia and a large sized left indirect inguinal hernia. The right-sided hernia contained fatty tissue and the left-sided hernia contained a large portion of sigmoid colon. These were able to be reduced without significant difficulty. A incision was created on the peritoneum across the lower abdomen superior to the bladder. The preperitoneal dissection took place bilaterally at that time. The direct hernia on the right- hand side was reduced using blunt dissection. Miguel's ligament and the pubic symphysis were well-visualized. Dissection on the left-hand side of the indire ct hernia sac then took place without difficulty as well. Once we had full dissection in both sacs fully reduced 2 separate 15 x 10 mm Progrip mesh were placed within the abdomen crossing one another in the midline. These were then sutured to the Miguel's ligament across the pubic symphysis to the opposite side using a running 30 absorbable V lock suture. The same stitch was then brought to the midline and the mesh was sutured to the abdominal wall in the midline superiorly. This covered all hernia spaces nicely. The peritoneal defect was then closed bilaterally using a absorbable 2-0 VLok suture. The hernia sacs were incorporated into the peritoneal closure to help prevent future recurrence. The pneumoperitoneum was then evacuated. The skin of all 3 sites was closed using a 4-0 Monocryl stitch. Skin glue was then applied. TYPE OF MESH USED: Progrip 15 x 10 LOCATION OF MESH: Preperitoneal/sub-lay FIXATION: Absorbable 30V lock PREOPERATIVE DISCUSSION ON SMOKING CESSASTION: Yes PREOPERATIVE DISCUSSION ON MORBID OBESITY: Yes PREOPERATIVE DISCUSSION ON APPROPRIATE USE OF NARCOTIC USE: Yes PREOPERATIVE EDUCATION: Multi Modal, Smoking Cessation and Weight Loss with BMI over 35. DISPOSITION: Stable to recovery room
[2025-02-01] MEDS ORDERED: ACETAMINOPHEN TAB 325 MG TAB PO SCH (12:15)
[2025-02-01 13:21] VITALS: RESP 16
[2025-02-01 14:15] VITALS: BP 104/58; PULSE 70
[2025-02-01] MEDS ORDERED: IBUPROFEN 600 MG TAB PO SCH (15:00)
== END 2025-02-01 14:34 | disposition home or self-care (01) ==
LOC: OR 08:23
PROVIDERS: ATTEND Surgery
DX: K40.00 Bilateral inguinal hernia, with obstruction, without gangrene, not specified as recurrent (principal); I10 Essential (primary) hypertension; E78.5 Hyperlipidemia, unspecified; I25.2 Old myocardial infarction; J44.9 Chronic obstructive pulmonary disease, unspecified; K21.9 Gastro-esophageal reflux disease without esophagitis; Z87.891 Personal history of nicotine dependence; Z95.1 Presence of aortocoronary bypass graft; Z79.82 Long term (current) use of aspirin; Z79.899 Other long term (current) drug therapy
CPT/HCPCS: 49650; S2900